=== PATIENT | female | born 1995 | race Caucasian/White ===

== ENCOUNTER 2017-03-02 12:29 | Emergency (ER) | payer OTHER ==
[2017-03-02 12:55] VITALS: BP 121/78
--- NOTE | 2017-03-02 13:04 | UC ---
Complaint Female HPI - HPI Summary HPI Summary: 21 female presents with complaints of sharp pain when urinating and after urinating for the past 3-4 days and has been worsening. Denies frequency and urgency. Patient delivered a baby 10 days ago. Denies fever/ however admits to chills. Denies PMHx. States she has had suprapubic tenderness. States she had stitches during and she had a difficult labor as she was having trouble dilating. Admits to an odor and discharge however she relates this to the delivery. States there was a yellow colored discharge at first that has since resolved and is now blood and brown in color. Denies history and worry for STD or PID as she has had same sexual partner for the past 6 years. Has not taken any medication for the pain. - History Of Current Complaint Chief Complaint: UCGU Stated Complaint: URINARY COMPLAINT Time Seen by Provider: 03/02/17 12:32 Hx Last Menstrual Period: just delivered baby on 02/20/17 ?: No Onset/Duration: Sudden Onset, Lasting Days - 2-3 Timing: Intermittent, Lasting Minutes Severity Initially: Moderate Severity Currently: Moderate Pain Intensity: 7 Pain Scale Used: 0-10 Numeric Radiates to: back Character: Sharp, Cramping Aggravating Factor(s): Urination Alleviating Factor(s): Nothing Associated Signs And Symptoms: Positive: Back Pain, Vaginal Bleeding/Discharge Related Hx: - 2, Para - 2 - Allergies/Home Medications Allergies/Adverse Reactions: Allergies Allergy/AdvReac Type Severity Reaction Status Date / Time Chlorine Allergy Rash Verified 03/02/17 12:55 Latex Allergy Rash And Verified 03/02/17 12:55 Itching nickel Allergy Severe Rash Uncoded 04/06/15 13:17 Home Medications: Home Medications Vit W/ Docusate-Fe Fu [ 19] 1 tab PO DAILY 03/02/17 [History Confirmed 03/02/17] Ursodiol CAP* [Actigall CAP 300 MG*] 300 mg PO TID 03/02/17 [History Confirmed 03/02/17] PMH/Surg Hx/FS Hx/Imm Hx - Additional Past Medical History Additional PMH: Denies DM, HTN and asthma. NO PMHx. - Surgical History Surgical History: None - Family History Known Family History: Positive: None - Social History Alcohol Use: None Substance Use Type: None Smoking Status (MU): Never Smoked Tobacco - Immunization History Most Recent Influenza Vaccination: 06/2015 Most Recent Tetanus Shot: unknown Vaccination Up to Date: Yes Review of Systems Constitutional: Negative Respiratory: Negative Cardiovascular: Negative Gastrointestinal: Abdominal Pain - suprapubic Genitourinary: Dysuria, Hematuria All Other Systems Reviewed And Are Negative: Yes Physical Exam Triage Information Reviewed: Yes Appearance: Well-Appearing, No Pain Distress, Well-Nourished Vital Signs: Initial Vital Signs Temp 98.5 F 03/02/17 12:39 Pulse 80 03/02/17 12:39 Resp 16 03/02/17 12:39 BP 121/78 03/02/17 12:39 Pulse Ox 97 03/02/17 12:39 afebrile, not tachycardic Vital Signs Reviewed: Yes Eyes: Positive: Conjunctiva Clear ENT: Positive: Normal ENT inspection, Hearing grossly normal Neck: Positive: Supple, Nontender Respiratory: Positive: Chest non-tender, Lungs clear, Normal breath sounds, No respiratory distress, No accessory muscle use. Negative: Crackles, Rhonchi, Wheezing Cardiovascular: Positive: RRR, No Murmur, Pulses Normal Abdomen Description: Positive: No Organomegaly, Soft, CVA Tenderness (R), Guarding, Other: - tender on palpation of suprapubic area and uterus on bimanual exam.. Negative: CVA Tenderness (L), Distended, McBurney's Point Tenderness, Peritoneal Signs, Pulsatile Mass Bowel Sounds: Positive: Present Musculoskeletal: Positive: Strength Intact, ROM Intact Neurological: Positive: Alert Psychological Exam: Normal Skin Exam: Normal UC Physical Exam Vital Signs On Initial Exam: Initial Vitals Temp Pulse Resp BP Pulse Ox 98.5 F 80 16 121/78 97 03/02/17 12:39 03/02/17 12:39 03/02/17 12:39 03/02/17 12:39 03/02/17 12:39 - Genitalia Exam Female Genitourinary: Normal External Exam, Genitalia without Lesions/Masses, Cervix Bleeding, Cervix Swelling, Cervix Tender, Cervix Closed - with sutures in place from recent delivery 02/20/17, Uterus Tenderness, Other - vaginal canal had malodorus discharge, thick brown/red in color, no pus-like, purulent, white colored discharge noted at cervical os. cervix and uterus exquisetly tender on bimanual, however firm on palpation. did not feel boggy. sutures in place at cerivical os. Complaint Female Dx - Course Course Of Treatment: Discussed case with Dr Medina. urinalysis was obtained and only showed leuk esterase with some blood, however patient is having bloody discharge from recent delivery. symptoms also are not completely consistent with UTI. Pelvic exam preformed and cultures obtained. due to PE findings and unremarkable urine patient will be treated for BV and UTI at this time while awaiting culture results. No concern of STD's per patient sexual history. Uterus not boggy and no purulent discharge from cervical os. Unlikely to be retained uterine parts from however could not be completely ruled out at this time. Treated with rocephin while in office, sent home on flagyl and keflex as medications are safe in . Told to take ibuprofen for pain and discomfort. Aware of worsening signs and symptoms to watch out for. Close follow up with OBGYN/PCP. Symptoms should improve within the next 3 days. Will await culture results. Difficult to differentiate between acute condition versus typical symptoms experienced post-. - Differential Dx/Diagnosis Differential Diagnosis/HQI/PQRI: Pelvic Inflammatory Disease, , Renal Colic, Sexually Transmitted Disease, Ureteral Stone, Urinary Tract Infection, Other - bacterial vaginosis, pyelonephritis, retained parts post Provider Diagnoses: pelvic pain post , vaginal discharge, pain with urination Discharge - Discharge Plan Condition: Stable Disposition: HOME Prescriptions: Cephalexin CAP* [Keflex CAP*] 500 mg PO BID #14 cap Ibuprofen TAB* [Motrin TAB* 600 MG] 600 mg PO Q6H PRN #30 tab PRN Reason: Pain Metronidazole [Flagyl 500 MG TAB] 500 mg PO BID #14 tab Patient Education Materials: Bacterial Vaginosis (ED), Urinary Tract Infection in Women (ED), Metronidazole (By mouth) Referrals: Eileen Teixeira MD [Primary Care Provider] - Additional Instructions: Take prescribed oral antibiotics as directed for the next 7 days. Be sure to take them with meals. Both are safe with . Warm compresses to lower abdomen may help soothe discomfort. OTC pain relievers to help with pain and discomfort. You will be called once culture results are received and if any changes needed to be made you will be notified. If symptoms worsen, new symptoms develop, or they do not improve please seek medical attention promptly. Follow up with PCP and OBGYN.
[2017-03-02] MEDS ORDERED: cefTRIAXone VIAL(*) 1,000 MG VIAL IM ONE (13:53)
[2017-03-02] MEDS ORDERED: Lidocaine 1% MPF* 2 ML VIAL INJ ONE (13:57)
--- NOTE | 2017-03-04 14:30 | UC ---
Progress - Progress Note Progress Note: 21 yo F is 10 d post had bloody vag discharge with an odor. Labs show Pos Gardnerella, other pelvic labs neg. Chart reviewed. Had pelvic exam and cultures, no concern for retained products or endometritis on exam. Pt treated empirically for BV adn UTI with metronidazole and flagyl, both safe for . Courtesy call back yest, unable to leave message. No change in therapy. Pt was advised to seek med attention if worse, and to have close follow up with OB.
== END 2017-03-02 14:39 | disposition home or self-care (01) ==
LOC: UCCORT 12:29
DX: R10.2 Pelvic and perineal pain (principal); N89.8 Other specified noninflammatory disorders of vagina; R30.0 Dysuria; R31.9 Hematuria, unspecified
CPT/HCPCS: 81003; 87086; 87480; 87491; 87510; 87591; 87661; 96372; 99212; G0463; J0696

== ENCOUNTER 2017-06-04 19:17 | Emergency (ER) | payer OTHER ==
[2017-06-04 20:08] LABS: Hematocrit 38 % (35-47); Hemoglobin 12.8 g/dl (12.0-16.0); Mean Corpuscular HGB Conc 34 g/dl (31-36); Mean Corpuscular Hemoglobin 27 pg (27-31); Mean Corpuscular Volume 78 fL (80-97); Mean Platelet Volume 9 um3 (7.4-10.4); Red Blood Count 4.83 10^6/ul (4.0-5.4); Red Cell Distribution Width 14 % (10.5-15); White Blood Count 6.8 10^3/ul (3.5-10.8)
[2017-06-04 20:15] LABS: Urine Bacteria Absent (Absent); Urine Bilirubin Negative (Negative); Urine Glucose Negative (Negative); Urine Nitrite Negative (Negative)
[2017-06-04 20:22] LABS: ALT 25 U/L (7-52); AST 20 U/L (13-39); Albumin 4.7 g/dL (3.2-5.2); Alkaline Phosphatase 67 U/L (34-104); Anion Gap 8 mmol/L (2-11); BUN/Creatinine Ratio 28.2 (8-20); Blood Urea Nitrogen 20 mg/dL (6-24); C Reactive Protein 9.45 mg/L (< 5.00); CO2 Carbon Dioxide 23 mmol/L (22-32); Calcium 9.7 mg/dL (8.6-10.3); Chloride 105 mmol/L (101-111); EGFR African American 133.6 (>60); EGFR Non-African American 103.9 (>60); Globulin 3.1 g/dL (2-4); Glucose 102 mg/dL (70-100); Lipase 47 U/L (11.0-82.0); Potassium 3.5 mmol/L (3.5-5.0); Sodium 136 mmol/L (133-145); Total Protein 7.8 g/dL (6.4-8.9)
[2017-06-04 21:01] VITALS: BP 115/73
--- NOTE | 2017-06-04 21:37 | RAD ---
Indication: Right upper quadrant pain. Real-time sonography of the right upper quadrant was performed. The liver measures 17 cm in length. No focal lesions or intrahepatic ductal dilatation is noted. The gallbladder is partially contracted. Common duct measures up to 4 mm. Right kidney measures 10.9 x 5.0 x 5.1 cm. No hydronephrosis is noted. The pancreas head, neck and proximal body demonstrates no mass or pancreatic ductal dilatation. IMPRESSION: Contracted gallbladder. No biliary duct dilatation is noted.
--- NOTE | 2017-06-05 04:26 | ED ---
Goran Schneider Thomas, scribed for Eamon Cabezas MD on 06/04/17 at 2044 . Abdominal Pain/Female - HPI Summary HPI Summary: The pt is a 21 y/o F presenting to the ED c/o RUQ abd pain that began three months ago after the of her child 3 months ago but has worsened in the last two weeks. She describes this pain as constant. The pain radiates to her back and her L flank. The pt rates the pain 6/10. The pain is aggravated by eating food and is alleviated by nothing. 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 She has a Hx of ICP during her most recent . She presents to the ED for a second opinion after her PCPs workup with labs and an ultrasound were negative. As of last week, her bilirubin was still elevated. Pt additionally c/o fatigue, random bruises, nausea, and chills. Pt denies bloody stool, mucus in stool, fevers, sweats, diarrhea, and constipation. PMHx: factor 5 clotting disorder (unclear whether confirmed), ICP. PSHx: none. SHx: no smoking, no alcohol use. FHx: negative for gallbladder disease. Previously, she had an US Gallbladder but she has never had a HIDA scan. She has never seen a GI specialist. She uses condoms and control. She had the Depo shot 3 months ago. She has two young boys. Her and mother and in the room. - History of Current Complaint Chief Complaint: EDAbdPain Stated Complaint: RT SIDE PAIN Time Seen by Provider: 06/04/17 19:43 Hx Obtained From: Patient, Family/Technical Support Associate - and mother and in the room Hx Last Menstrual Period: just delivered baby on 02/20/17 Onset/Duration: Lasting Weeks - long-standing complaint, onset at least three months ago, Still Present, Worse Since - the last two weeks Timing: Constant Severity Currently: Severe Pain Intensity: 6 Pain Scale Used: 0-10 Numeric Location: Discrete At: RUQ Radiates: No Aggravating Factor(s): Food Alleviating Factor(s): Nothing Associated Signs and Symptoms: Positive: Nausea, Diarrhea, Other: - POS: RUQ abd pain, fatigue, "random bruises", chills; NEG: mucus in stool, sweats. Negative: Fever, Constipation, Blood in Stool Allergies/Adverse Reactions: Allergies Allergy/AdvReac Type Severity Reaction Status Date / Time Chlorine Allergy Rash Verified 06/04/17 19:24 Latex Allergy Rash And Verified 06/04/17 19:24 Itching nickel Allergy Severe Rash Uncoded 06/04/17 19:24 PMH/Surg Hx/FS Hx/Imm Hx Previously Healthy: No Endocrine/Hematology History: Denies: Hx Diabetes Cardiovascular History: Denies: Hx Hypertension, Hx Pacemaker/ICD Respiratory History: Denies: Hx Asthma GI History: Reports: Other GI Disorders - Hx ICP Sensory History: Denies: Hx Hearing Aid Psychiatric History: Denies: Hx Panic Disorder - Surgical History Surgery Procedure, Year, and Place: None Infectious Disease History: No Infectious Disease History: Denies: Traveled Outside the [place] in Last 30 Days - Family History Known Family History: Negative: Other - NEG: gallbladder disease - Social History Alcohol Use: None Substance Use Type: Reports: None Smoking Status (MU): Never Smoked Tobacco Review of Systems Positive: Chills, Other - POS: fatigue; NEG: sweats. Negative: Fever Negative: Erythema - eyes Negative: Sore Throat Negative: Chest Pain Negative: Shortness Of Breath, Cough Positive: Abdominal Pain - RUQ abd pain that began three months ago but worsened in last two weeks, aggravated by food, Nausea. Negative: Vomiting, Diarrhea, Other - NEG: blood in stool, mucus in stool, constipation Negative: hematuria, incontinence Negative: Myalgia, Edema - legs Positive: Other - POS: "random bruises" Neurological: Other - NEG: dizziness All Other Systems Reviewed And Are Negative: Yes Physical Exam - Summary Physical Exam Summary: Constitutional: Well-developed, Well-nourished, Alert. (-) Distressed Skin: Warm, Dry HENT: Normocephalic; Atraumatic Eyes: Conjunctiva normal Neck: Musculoskeletal ROM normal neck. (-) JVD, (-) Stridor, (-) Tracheal deviation Cardio: Rhythm regular, rate normal, Heart sounds normal; Intact distal pulses; The pedal pulses are 2+ and symmetric. Radial pulses are 2+ and symmetric. (-) Murmur Pulmonary/Chest wall: Effort normal. (-) Respiratory distress, (-) Wheezes, (-) Rales Abd: Soft, (-) Tenderness, (-) Distension, (-) Guarding, (-) Rebound Musculoskeletal: (-) Edema Lymph: (-) Cervical adenopathy Neuro: Alert, Oriented x3 Psych: Mood and affect Normal Triage Information Reviewed: Yes Vital Signs On Initial Exam: Initial Vitals Temp Pulse Resp BP Pulse Ox 98.8 F 76 16 135/78 99 06/04/17 19:20 06/04/17 19:20 06/04/17 19:20 06/04/17 19:20 06/04/17 19:20 Vital Signs Reviewed: Yes - Jacquelin Coma Scale Coma Scale Total: 15 Diagnostics - Vital Signs Vital Signs Temp Pulse Resp BP Pulse Ox 06/04/17 20:00 79 121/89 99 06/04/17 19:43 82 98 06/04/17 19:34 99.0 F 79 19 121/106 99 06/04/17 19:20 98.8 F 76 16 135/78 99 - Laboratory Lab Results: Lab Results 06/04/17 06/04/17 06/04/17 Range/Units 19:30 19:30 19:30 WBC 6.8 (3.5-10.8) 10^3/ul RBC 4.83 (4.0-5.4) 10^6/ul Hgb 12.8 (12.0-16.0) g/dl Hct 38 (35-47) % MCV 78 L (80-97) fL MCH 27 (27-31) pg MCHC 34 (31-36) g/dl RDW 14 (10.5-15) % Plt Count 257 (150-450) 10^3/ul MPV 9 (7.4-10.4) um3 Neut % (Auto) 46.3 (38-83) % Lymph % (Auto) 40.9 (25-47) % [place] % (Auto) 8.3 (1-9) % Eos % (Auto) 3.2 (0-6) % Baso % (Auto) 1.3 (0-2) % Absolute Neuts (auto) 3.2 (1.5-7.7) 10^3/ul Absolute Lymphs (auto) 2.8 (1.0-4.8) 10^3/ul Absolute Monos (auto) 0.6 (0-0.8) 10^3/ul Absolute Eos (auto) 0.2 (0-0.6) 10^3/ul Absolute Basos (auto) 0.1 (0-0.2) 10^3/ul Absolute Nucleated RBC 0.01 10^3/ul Nucleated RBC % 0.1 Sodium 136 (133-145) mmol/L Potassium 3.5 (3.5-5.0) mmol/L Chloride 105 (101-111) mmol/L Carbon Dioxide 23 (22-32) mmol/L Anion Gap 8 (2-11) mmol/L BUN 20 (6-24) mg/dL Creatinine 0.71 (0.51-0.95) mg/dL Est GFR ( Amer) 133.6 (>60) Est GFR (Non-Af Amer) 103.9 (>60) BUN/Creatinine Ratio 28.2 H (8-20) Glucose 102 H (70-100) mg/dL Lactic Acid 1.2 (0.5-2.0) mmol/L Calcium 9.7 (8.6-10.3) mg/dL Total Bilirubin 2.00 H (0.2-1.0) mg/dL AST 20 (13-39) U/L ALT 25 (7-52) U/L Alkaline Phosphatase 67 (34-104) U/L C-Reactive Protein 9.45 H (< 5.00) mg/L Total Protein 7.8 (6.4-8.9) g/dL Albumin 4.7 (3.2-5.2) g/dL Globulin 3.1 (2-4) g/dL Albumin/Globulin Ratio 1.5 (1-3) Lipase 47 (11.0-82.0) U/L Beta HCG, Quant < 0.60 mIU/mL Urine Color Urine Appearance Urine pH (5-9) Ur Specific [place] (1.010-1.030) Urine Protein (Negative) Urine Ketones (Negative) Urine Blood (Negative) Urine Nitrate (Negative) Urine Bilirubin (Negative) Urine Urobilinogen (Negative) Ur Leukocyte Esterase (Negative) Urine WBC (Auto) (Absent) Urine RBC (Auto) (Absent) Ur Squamous Epith Cells (Absent) Urine Bacteria (Absent) Urine Glucose (Negative) 06/04/17 Range/Units 19:30 WBC (3.5-10.8) 10^3/ul RBC (4.0-5.4) 10^6/ul Hgb (12.0-16.0) g/dl Hct (35-47) % MCV (80-97) fL MCH (27-31) pg MCHC (31-36) g/dl RDW (10.5-15) % Plt Count (150-450) 10^3/ul MPV (7.4-10.4) um3 Neut % (Auto) (38-83) % Lymph % (Auto) (25-47) % [place] % (Auto) (1-9) % Eos % (Auto) (0-6) % Baso % (Auto) (0-2) % Absolute Neuts (auto) (1.5-7.7) 10^3/ul Absolute Lymphs (auto) (1.0-4.8) 10^3/ul Absolute Monos (auto) (0-0.8) 10^3/ul Absolute Eos (auto) (0-0.6) 10^3/ul Absolute Basos (auto) (0-0.2) 10^3/ul Absolute Nucleated RBC 10^3/ul Nucleated RBC % Sodium (133-145) mmol/L Potassium (3.5-5.0) mmol/L Chloride (101-111) mmol/L Carbon Dioxide (22-32) mmol/L Anion Gap (2-11) mmol/L BUN (6-24) mg/dL Creatinine (0.51-0.95) mg/dL Est GFR ( Amer) (>60) Est GFR (Non-Af Amer) (>60) BUN/Creatinine Ratio (8-20) Glucose (70-100) mg/dL Lactic Acid (0.5-2.0) mmol/L Calcium (8.6-10.3) mg/dL Total Bilirubin (0.2-1.0) mg/dL AST (13-39) U/L ALT (7-52) U/L Alkaline Phosphatase (34-104) U/L C-Reactive Protein (< 5.00) mg/L Total Protein (6.4-8.9) g/dL Albumin (3.2-5.2) g/dL Globulin (2-4) g/dL Albumin/Globulin Ratio (1-3) Lipase (11.0-82.0) U/L Beta HCG, Quant mIU/mL Urine Color Yellow Urine Appearance Clear Urine pH 6.0 (5-9) Ur Specific [place] 1.025 (1.010-1.030) Urine Protein Negative (Negative) Urine Ketones Negative (Negative) Urine Blood 2+ H (Negative) Urine Nitrate Negative (Negative) Urine Bilirubin Negative (Negative) Urine Urobilinogen Negative (Negative) Ur Leukocyte Esterase 2+ H (Negative) Urine WBC (Auto) 1+(6-10/hpf) H (Absent) Urine RBC (Auto) 3+(>10/hpf) H (Absent) Ur Squamous Epith Cells Present H (Absent) Urine Bacteria Absent (Absent) Urine Glucose Negative (Negative) Result Diagrams: 06/04/17 19:30 06/04/17 19:30 Lab Statement: Any lab studies that have been ordered have been reviewed, and results considered in the medical decision making process. - Additional Comments Diagnostic Additional Comments: US Gallbladder. Interpreted by radiologist. Impression: Contracted gallbladder. No biliary duct dilatation is noted. ED physician has reviewed this report and agrees. Re-Evaluation - Re-Evaluation First Eval Re-Evaluation Time: 22:00 Change: Improved Comment: She is nontender Abdominal Pain Fem Course/Dx - Course Course Of Treatment: The pt is a 21 y/o F presenting to the ED c/o RUQ abd pain that began three months ago after the of her child 3 months ago but has worsened in the last two weeks. She describes this pain as constant. The pain radiates to her back and her L flank. The pt rates the pain 6/10. The pain is aggravated by eating food and is alleviated by nothing. 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 She has a Hx of ICP during her most recent . She presents to the ED for a second opinion after her PCPs workup with labs and an ultrasound were negative. As of last week, her bilirubin was still elevated. Pt additionally c/o fatigue, random bruises, nausea, and chills. Pt denies bloody stool, mucus in stool, fevers, sweats, diarrhea, and constipation. PMHx: factor 5 clotting disorder (unclear whether confirmed), ICP. PSHx: none. SHx: no smoking, no alcohol use. FHx: negative for gallbladder disease. Previously, she had an US Gallbladder but she has never had a HIDA scan. She has never seen a GI specialist. She uses condoms and control. She had the Depo shot 3 months ago. She has two young boys. Her and mother and in the room. She had a normal exam. On re-examination, she is non- tender. US Gallbladder reveals Contracted gallbladder. No biliary duct dilatation is noted. ED physician has reviewed this report and agrees. She is diagnosed with RUQ and elevated bilirubin. She is discharged with a referral to a GI specialist in 2-3 days. - Diagnoses Provider Diagnoses: Elevated bilirubin, RUQ pain Discharge - Discharge Plan Condition: Stable Disposition: HOME Patient Education Materials: Abdominal Pain (ED) Referrals: Eileen Teixeira MD [Primary Care Provider] - 2 Days Jalil Kat MD [Medical Doctor] - 2 Days Additional Instructions: Follow up with your primary care provider in 2-3 days. Follow up with Dr. Kat, a automotive airconditioning mechanic, in 2-3 days. Return to the emergency department for any new or worsening symptoms. The documentation as recorded by the Goran dias Thomas accurately reflects the service I personally performed and the decisions made by , Eamon Cabezas MD.
== END 2017-06-04 22:14 | disposition home or self-care (01) ==
LOC: ED 19:17
DX: R10.11 Right upper quadrant pain (principal); E80.7 Disorder of bilirubin metabolism, unspecified
CPT/HCPCS: 36415; 76705; 80053; 80074; 81003; 81015; 83605; 83690; 84702; 85025; 86140; 87086; 99282

== ENCOUNTER 2018-04-04 07:19 | Emergency (ER) | payer OTHER ==
--- OUTSIDE RECORDS SUMMARY | 2018-04-04 07:32 | XMS REPORT ---
:1995 External Reference #:[id number] Author Organization [facility] Address [address], [address] [place] [address] Phone [phone] Care Team Providers Name Role Phone Marino Avila MD Primary Care Physician Unavailable Payers Type Date Identification Numbers Payment Provider Subscriber Commercial Policy Number: [id number] Obdulio Lowery PayID: [id number] [address] [address] [place] [address] Problems Date Description Provider Status Onset: 09/10/2003 Closed fracture of shaft of clavicle Active Onset: 04/10/2015 Blood coagulation disorder, categorized Lita Fowler DO Active by value of screening test Onset: 04/10/2015 Neck pain Lita Fowler DO Active Onset: 04/10/2015 Irregular periods Lita Fowler DO Active Onset: 03/24/2018 Kidney stone Aditya Shields M.D. 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 Onset: 06/24/2017 Hypercoagulability state Lita Fowler DO Active Onset: 06/22/2017 Gilbert's syndrome Harman Govea MD Active Onset: 06/22/2017 Chronic nonalcoholic liver disease Harman Govea MD Active Onset: 06/22/2017 Right upper quadrant pain Harman Govea MD Active Onset: 06/22/2017 Disorder of cardiovascular system Harman Govea MD Active Onset: 02/11/2017 Electrocardiogram abnormal Merrick Low MD Active Onset: 02/11/2017 Syncope and collapse Merrick Low MD Active Family History Date Family Member(s) Problem(s) Comments General Hypertension General Non Contributory Father Kidney Stones Father lung issues Father Hypertension Children 1 living age 9 months Siblings 3 age 24 living, age 23 living, age 15 living Social History Type Date Description Comments Marital Status Single Lives With Significant Other Lives With Son Home Environment Lives Alone Diet Patient follows no dietary restrictions Occupation Unemployed Work Status Currently Working Cigarette Use Never Smoked Cigarettes Smokeless Tobacco Never Used Smokeless Tobacco ETOH Use Denies alcohol use Smoking Patient has never smoked Recreational Drug Use Denies Drug Use Daily Caffeine Patient consumes minimal amounts of caffeine Daily Caffeine Consumes on average 12oz of soda per day Allergies, Adverse Reactions, Alerts Date Description Reaction Status Severity Comments 04/10/2015 Latex active 04/10/2015 Nickel active 04/10/2015 Chlorine active 06/28/2013 Metals inactive Medications Medication Date Status Form Strength Qnty SIG Indications Ordering Provider Nexplanon Active Implant 68mg to be Unknown /0000 removed in 2020 Cephalexin Active Capsules 500mg take 1 Unknown /0000 capsule every 12 hours Ergocalciferol 12/13 Hx Capsules [id number] 6caps 1 cap po Lita /2018 qweek Boufal, DO - 03/24 Ergocalciferol 11/14 Hx Capsules [id number] 6caps 1 cap po Lita /2018 qweek Boufal, DO - 11/30 Bactrim DS 11/14 Hx Tablets 800-160mg 14tab 1 tabl s by mouth Bonancyal, DO - twice a No Active 10/07 Hx Unknown Medications /2017 - 10/07 No Active 09/17 Hx Unknown Medications /2014 - 02/11 No Active 07/11 Hx Unknown Medications /2014 - 07/11 Ortho Evra 07/11 Hx Patches 150-35mcg 3unit apply Z30.018 Maureen /2014 Weekly /24HR s [place] Laurent - patch to 09/17 hairless skin of the upper arms, abdomen or lower back x 3 weeks leave off 1 week - repeat Levonorgestrel 07/11 Hx Tablets 1.5mg 1tabs take on Z30.018 in event [place] Chou - of 09/17 breakage Iron 05/06 Hx Tablets 325(65Fe) 30tab 1 tabl Lita /2014 mg s by mouth DO Malcolm - M,W,F 07/11 No Active 04/10 Hx Unknown Medications /2014 - 04/10 Norethindrone 04/10 Hx Tablets 1-20mg-mc 1pack one po 626.4 Acetate/Ethinyl g(24) qd [place] Chou Estradiol/Ferrou - s Fumarate 07/11 Depo-Provera 10/15 Hx Suspension 150mg/ml 1unit every 3 Katy s russ Kerns MD - 04/10 Cyclobenzaprine 07/24 Hx Tablets 5mg 30tab 1 po in [facility] s the Kathi Corral M.D., FACS 04/10 muscle spasms Cyclobenzaprine 07/23 Hx Tablets 7.5mg 20tab 1 po in [facility] s the Kathi Corral M.D., FACS 07/24 prior to bed Naproxen 06/28 Hx Tablets 375mg 60tab 1 po bid [facility] s with Kathi Corral M.D., FACS 04/10 Cryselle-28 Hx Tablets 0.3-30mg- 1pack 1 po qd Unknown /0000 mcg - 04/10 Ursodiol Hx Capsules 300mg 1 po tid Unknown /0000 [address] 81mg 1 by Unknown /0000 mouth every day One 00 Hx Tablets 1 by Unknown Daily /0000 mouth every day Ondansetron Hx Tablets 4mg 1 tabs Unknown /0000 Dispers prn - 10/[address] 20mg 1 tab by Unknown /0000 mouth - every every morning Tylenol Extra Hx Tablets 500mg 1-2 tabs Unknown Strength /0000 by mouth - every 4 / hours needed Vitamin D Hx Capsules [id number] take 1 Unknown (Ergocalciferol) /0000 capsule - by mouth 12/16 week Vitamin B Hx Injection 100 one shot Unknown Complex 100 /0000 once a - month 03/24 Hydrocodone-Acet Hx Tablets 5-325mg prn Unknown aminophen /0000 given in - ER 03/31 Medications Administered in Office Medication Date Status Form Strength Qnty SIG Indications Ordering Provider Vitamin B12 Administered Injection Oncology Injection 1000 018 Nurse mcg/Ml Theraputic Or Administered Injection Oncology Diagnostic 018 Nurse Injection Vitamin B12 Administered Injection Lita Injection 1000 018 Boufal, DO mcg/Ml Theraputic Or Administered Injection Lita Diagnostic 018 Boufal, DO Injection Immunizations CPT Code Status Date Vaccine Lot # [id number] Given 07/11/2015 Influenza Vaccine (Fluzone) Age 3 And Older [id number] Given 06/10/2014 Tdap injection [id number] Given 06/10/2014 flu vaccination Vital Signs Date Vital Result Comment 03/31/2018 BP Systolic Sitting Right Arm 110 mmHg BP Diastolic Sitting Right Arm 77 mmHg Heart Rate 90 /min Respiratory Rate 16 /min Height 63 inches 5'3" Weight 171.00 lb BMI (Body Mass Index) 30.3 kg/m2 BSA (Body Surface Area) 1.81 m2 [place] body weight in kilograms 52 03/24/2018 BP Systolic 111 mmHg BP Diastolic 73 mmHg Body Temperature 99.0 F Heart Rate 77 /min Respiratory Rate 16 /min Weight 170.25 lb O2 % BldC Oximetry 96 % Pain Level 5 RIght sided back pain 12/13/2017 BP Systolic 138 mmHg BP Diastolic 73 mmHg Body Temperature 98.5 F Heart Rate 71 /min Weight 167.00 lb O2 % BldC Oximetry 98 % 11/30/2017 BP Systolic 123 mmHg BP Diastolic 78 mmHg Body Temperature 98.8 F Respiratory Rate 16 /min Weight 165.00 lb O2 % BldC Oximetry 98 % Pain Level 0 10/07/2017 BP Systolic 118 mmHg BP Diastolic 73 mmHg Body Temperature 97.1 F Heart Rate 81 /min Weight 160.38 lb O2 % BldC Oximetry 98 % 06/24/2017 BP Systolic 130 mmHg BP Diastolic 79 mmHg Body Temperature 98.2 F Heart Rate 88 /min Weight 153.00 lb O2 % BldC Oximetry 98 % 06/22/2017 BP Systolic Sitting Left Arm 118 mmHg BP Diastolic Sitting Left Arm 74 mmHg Heart Rate 75 /min Respiratory Rate 16 /min Height 63 inches 5'3" Weight 151.00 lb BMI (Body Mass Index) 26.7 kg/m2 BSA (Body Surface Area) 1.72 m2 [place] body weight in kilograms 52 02/11/2017 BP Systolic Sitting Right Arm 123 mmHg BP Diastolic Sitting Right Arm 73 mmHg Heart Rate 63 /min Respiratory Rate 18 /min Height 63 inches 5'3" Weight 177.00 lb BMI (Body Mass Index) 31.4 kg/m2 BSA (Body Surface Area) 1.84 m2 [place] body weight in kilograms 52 09/17/2015 BP Systolic Sitting Left Arm 128 mmHg BP Diastolic Sitting Left Arm 74 mmHg Heart Rate 78 /min Respiratory Rate 19 /min Height 63 inches 5'3" Weight 178.00 lb BMI (Body Mass Index) 31.5 kg/m2 BSA (Body Surface Area) 1.84 m2 Last Menstrual Period [id number] 07/11/2015 BP Systolic 118 mmHg BP Diastolic 72 mmHg Height 64 inches 5'4" Weight 175.00 lb BMI (Body Mass Index) 30.0 kg/m2 BSA (Body Surface Area) 1.85 m2 Last Menstrual Period [id number] 05/06/2015 BP Systolic Sitting Left Arm 127 mmHg BP Diastolic Sitting Left Arm 77 mmHg Body Temperature 98.2 F Heart Rate 80 /min Respiratory Rate 18 /min Weight 178.00 lb O2 % BldC Oximetry 97 % 04/23/2015 BP Systolic Sitting Left Arm 128 mmHg BP Diastolic Sitting Left Arm 72 mmHg Body Temperature 98.2 F Heart Rate 84 /min Respiratory Rate 18 /min Weight 181.00 lb O2 % BldC Oximetry 96 % 04/10/2015 BP Systolic Sitting Left Arm 126 mmHg BP Diastolic Sitting Left Arm 57 mmHg Body Temperature 98.0 F Heart Rate 102 /min Respiratory Rate 18 /min Weight 180.00 lb O2 % BldC Oximetry 96 % 04/10/2015 BP Systolic 114 mmHg BP Diastolic 74 mmHg Heart Rate 88 /min Respiratory Rate 18 /min Height 65 inches 5'5" Weight 179.00 lb BMI (Body Mass Index) 29.8 kg/m2 BSA (Body Surface Area) 1.89 m2 10/24/2014 BP Systolic 122 mmHg BP Diastolic 70 mmHg Height 65 inches 5'5" Weight 157.00 lb 08/28/2014 BP Systolic 110 mmHg BP Diastolic 70 mmHg Heart Rate 76 /min Height 65 inches 5'5" Weight 142.00 lb 07/01/2014 BP Systolic 138 mmHg BP Diastolic 84 mmHg Height 65 inches 5'5" Weight 161.00 lb 06/25/2014 BP Systolic 132 mmHg BP Diastolic 70 mmHg Height 65 inches 5'5" Weight 157.00 lb 06/10/2014 BP Systolic 124 mmHg BP Diastolic 74 mmHg Height 65 inches 5'5" Weight 156.00 lb 05/02/2014 BP Systolic 108 mmHg BP Diastolic 60 mmHg Height 65 inches 5'5" Weight 149.00 lb 04/01/2014 BP Systolic 112 mmHg BP Diastolic 64 mmHg Height 65 inches 5'5" Weight 144.00 lb 02/26/2014 BP Systolic 118 mmHg BP Diastolic 68 mmHg Height 65 inches 5'5" Weight 124.00 lb 12/21/2013 BP Systolic 110 mmHg BP Diastolic 64 mmHg Height 65 inches 5'5" Weight 128.00 lb 11/20/2013 BP Systolic 90 mmHg BP Diastolic 64 mmHg Height 65 inches 5'5" Weight 126.00 lb 07/23/2013 BP Systolic Sitting Left Arm 110 mmHg BP Diastolic Sitting Left Arm 80 mmHg Height 64.5 inches 5'4.50" Weight 135.00 lb BMI (Body Mass Index) 22.8 kg/m2 BSA (Body Surface Area) 1.66 m2 Height Percentile 54 % Weight Percentile 70th Results Test Date Test Result H/L Range Note Iron-Tibc-%Sat 12/27/2017 Serum Iron 79 g/dL 50-170 1 Total Iron Binding Capacity 347 g/dL 250-450 1 Transferrin %Saturation 23 % 12-57 1 Laboratory test finding 12/27/2017 Ferritin 216 ng/mL 8-252 1 Vitamin B12 And Folate 12/27/2017 Vitamin B12 505 pg/mL 193-986 1 Folic Acid 18.8 ng/mL High 3.1-17.5 1 Laboratory test 12/27/2017 Vitamin D,25-Hydroxy 21.9 ng/mL Low 30.0-100.0 1, 2 finding CBS W/Automated Diff 12/27/2017 White Blood Count 5.6 K/uL 3.1-10.7 1 Red Blood Count 5.08 M/uL 3.90-5.40 1 Hemoglobin 13.6 gm/dL 11.6-15.8 1 Hematocrit 39.8 % 36.0-46.1 1 Mean Cell Volume 78.3 fl Low 80.9-99.0 1 Mean Corpuscular HGB 26.8 pg 25.9-32.7 1 Mean Corpuscular HGB Conc 34.2 g/dL 30.8-34.3 1 Platelet Count 249 K/uL 155-360 1 Red Cell Distri Width SD 37.2 fl 3-47 1 Red Cell Distri Width %CV 13.3 % 11.7-14.4 1 Mean Platelet Volume 11.1 fL 8.9-12.4 1 Neut% 59.1 % 40.4-72.8 1 Lymph % 32.2 % 20.0-42.0 1 F[place]ardo % 6.4 % 4.3-13.2 1 Eo% 1.2 % 0.0-6.6 1 Bas% 1.1 % 0.0-1.1 1 Neut# 3.32 K/uL 1.8-7.0 1 Lymph # 1.81 K/uL 1.0-4.0 1 F[place]ardo # 0.36 K/uL 0.3-0.9 1 Eos # 0.07 K/uL 0.0-0.5 1 Baso # 0.06 K/uL 0.0-0.1 1 Comprehensive Metabolic Panel 12/27/2017 Glucose 102 mg/dL 74-106 1 BUN 17 mg/dL 7-18 1 Creatinine 0.6 mg/dL 0.6-1.3 1 Glom Filtration Rate, Estimate >60 mL/min >60 1 If >60 mL/min >60 1, 3 BUN/Creat 28.3 ratio 1 Sodium 140 mmol/L 136-145 1 Potassium 4.0 mmol/L 3.5-5.1 1 Chloride 107 mmol/L 98-107 1 Carbon Dioxide 25 mmol/L 21-32 1 Anion Gap 8 mEq/L 8-16 1 Calcium 8.9 mg/dL 8.5-10.1 1 Total Protein 7.9 g/dL 6.4-8.2 1 Albumin 4.1 g/dL 3.4-5.0 1 Globulin 3.8 g/dL 1.9-4.3 1 Alb/Glob 1.1 ratio 1 Bilirubin,Total 1.5 mg/dL High 0.2-1.0 1 Sgot/Ast 14 U/L Low 15-37 1, 4 SGPT/Alt 20 U/L 12-78 1 Alkaline Phosphatase 82 U/L 45-117 1 Xray 12/12/2017 Gallbladder (Disida) W/Ef still wnl Iron-Tibc-%Sat 12/01/2017 Serum Iron 72 g/dL 50-170 1 Total Iron Binding Capacity 403 g/dL 250-450 1 Transferrin %Saturation 18 % 12-57 1 Comprehensive Metabolic Panel 12/01/2017 Glucose 96 mg/dL 74-106 1 BUN 16 mg/dL 7-18 1 Creatinine 0.7 mg/dL 0.6-1.3 1 Glom Filtration Rate, Estimate >60 mL/min >60 1 If >60 mL/min >60 1, 5 BUN/Creat 22.8 ratio 1 Sodium 138 mmol/L 136-145 1 Potassium 3.9 mmol/L 3.5-5.1 1 Chloride 108 mmol/L High 98-107 1 Carbon Dioxide 22 mmol/L 21-32 1 Anion Gap 8 mEq/L 8-16 1 Calcium 8.9 mg/dL 8.5-10.1 1 Total Protein 8.2 g/dL 6.4-8.2 1 Albumin 4.3 g/dL 3.4-5.0 1 Globulin 3.9 g/dL 1.9-4.3 1 Alb/Glob 1.1 ratio 1 Bilirubin,Total 2.1 mg/dL High 0.2-1.0 1 Sgot/Ast 16 U/L 15-37 1 SGPT/Alt 27 U/L 12-78 1 Alkaline Phosphatase 78 U/L 45-117 1 CBS W/Automated Diff 12/01/2017 White Blood Count 5.3 K/uL 3.1-10.7 1 Red Blood Count 5.24 M/uL 3.90-5.40 1 Hemoglobin 14.0 gm/dL 11.6-15.8 1 Hematocrit 40.8 % 36.0-46.1 1 Mean Cell Volume 77.9 fl Low 80.9-99.0 1 Mean Corpuscular HGB 26.7 pg 25.9-32.7 1 Mean Corpuscular HGB Conc 34.3 g/dL 30.8-34.3 1 Platelet Count 264 K/uL 155-360 1 Red Cell Distri Width SD 36.8 fl 3-47 1 Red Cell Distri Width %CV 13.0 % 11.7-14.4 1 Mean Platelet Volume 10.9 fL 8.9-12.4 1 Neut% 54.1 % 40.4-72.8 1 Lymph % 35.7 % 20.0-42.0 1 [place]ardo % 7.2 % 4.3-13.2 1 Eo% 1.9 % 0.0-6.6 1 Bas% 1.1 % 0.0-1.1 1 Neut# 2.84 K/uL 1.8-7.0 1 Lymph # 1.88 K/uL 1.0-4.0 1 [place]ardo # 0.38 K/uL 0.3-0.9 1 Eos # 0.10 K/uL 0.0-0.5 1 Baso # 0.06 K/uL 0.0-0.1 1 Laboratory test 12/01/2017 Vitamin D,25-Hydroxy 19.2 ng/mL Low 30.0-100.0 1, 6 finding Vitamin B12 And Folate 12/01/2017 Vitamin B12 383 pg/mL 193-986 1 Folic Acid 18.2 ng/mL High 3.1-17.5 1 Laboratory test finding 12/01/2017 Ferritin 40 ng/mL 8-252 1 Laboratory test finding 10/07/2017 Abo/RH Type O POS 1 Iron-Tibc-%Sat 10/07/2017 Serum Iron 81 g/dL 50-170 1 Total Iron Binding Capacity 420 g/dL 250-450 1 Transferrin %Saturation 19 % 12-57 1 Laboratory test finding 10/07/2017 Ferritin 42 ng/mL 8-252 1 Vitamin B12 And Folate 10/07/2017 Vitamin B12 424 pg/mL 193-986 1 Folic Acid > 20.0 ng/mL High 3.1-17.5 1 Laboratory test 10/07/2017 Vitamin D,25-Hydroxy 18.2 ng/mL Low 30.0-100.0 1, 7 finding CBS W/Automated Diff 10/07/2017 White Blood Count 5.0 K/uL 3.1-10.7 1 Red Blood Count 5.19 M/uL 3.90-5.40 1 Hemoglobin 13.6 gm/dL 11.6-15.8 1 Hematocrit 40.8 % 36.0-46.1 1 Mean Cell Volume 78.6 fl Low 80.9-99.0 1 Mean Corpuscular HGB 26.2 pg 25.9-32.7 1 Mean Corpuscular HGB Conc 33.3 g/dL 30.8-34.3 1 Platelet Count 324 K/uL 155-360 1 Red Cell Distri Width SD 37.4 fl 3-47 1 Red Cell Distri Width %CV 13.2 % 11.7-14.4 1 Mean Platelet Volume 11.5 fL 8.9-12.4 1 Neut% 49.8 % 40.4-72.8 1 Lymph % 38.3 % 20.0-42.0 1 F[place]ardo % 7.5 % 4.3-13.2 1 Eo% 2.4 % 0.0-6.6 1 Bas% 2.0 % High 0.0-1.1 1 Neut# 2.51 K/uL 1.8-7.0 1 Lymph # 1.93 K/uL 1.0-4.0 1 [place] # 0.38 K/uL 0.3-0.9 1 Eos # 0.12 K/uL 0.0-0.5 1 Baso # 0.10 K/uL 0.0-0.1 1 Comprehensive Metabolic Panel 10/07/2017 Glucose 81 mg/dL 74-106 1 BUN 14 mg/dL 7-18 1 Creatinine 0.6 mg/dL 0.6-1.3 1 Glom Filtration Rate, Estimate >60 mL/min >60 1 If >60 mL/min >60 1, 8 BUN/Creat 23.3 ratio 1 Sodium 139 mmol/L 136-145 1 Potassium 3.9 mmol/L 3.5-5.1 1 Chloride 105 mmol/L 98-107 1 Carbon Dioxide 27 mmol/L 21-32 1 Anion Gap 7 mEq/L Low 8-16 1 Calcium 9.5 mg/dL 8.5-10.1 1 Total Protein 8.5 g/dL High 6.4-8.2 1 Albumin 4.4 g/dL 3.4-5.0 1 Globulin 4.1 g/dL 1.9-4.3 1 Alb/Glob 1.1 ratio 1 Bilirubin,Total 2.5 mg/dL High 0.2-1.0 1 Sgot/Ast 17 U/L 15-37 1 SGPT/Alt 27 U/L 12-78 1 Alkaline Phosphatase 80 U/L 45-117 1 Laboratory test 06/30/2017 Urine HCG (Qualitative) NEGATIVE Negative 9, 10 finding Porphobilinogen,QN,24H 06/30/2017 Porphobilinogen,QN,Urine 0.6 mg/L 0.0- 2.0 11 R Urine Porphobilinogen, 24HR (U) 0.6 mg/24hr 0.0-1.5 11, 12 Porphyrins,QN,24-HR Urine 06/30/2017 Uroporphyrin,Urine 5 ug/L Undefined 11, 13 Uroporphyrin 24 HR Urine 5 ug/24hr 0-24 11 Heptacarboxylporph,Urine 2 ug/L Undefined 11 Heptacarboxylporphyrin 2 ug/24hr 0-4 11 Hexacarboxylporph,Urine <1 ug/L Undefined 11 Hexacarboxylpor,24HR Urine <1 ug/24hr 0-1 11 Pentacarboxylporph,Urine 1 ug/L Undefined 11 Pentacarboxyl,24 HR Urine 1 ug/24hr 0-4 11 Coproporphyrin,Urine 15 ug/L Undefined 11 Coproporphyrin,24 HR Urine 15 ug/24hr 0-24 11 Coproporphyrin III 8 ug/L Undefined 11 Coproporph III, 24 Hour 8 ug/24hr 0-74 11 Ala Delta, 24 Hour Urine 06/30/2017 Delta Ala 2.2 mg/L Undefined 11 Delta Ala 2.2 mg/24hr 0.5-5.1 11, 14 Homocyst(E)Ine, P/S 06/24/2017 Homocyst(e)ine, P/S 8.7 umol/L 0.0-15.0 15, 16 Laboratory test 06/24/2017 PBG Deaminase, 3.25 mU/gHb 2.10-4.30 15, 17 finding Erythrocyte Porphyrins,Serum,Total < 0.1 g/dL 0.0-1.0 15, 18 Thomas Fibrosure 06/24/2017 Thomas Fibrosis Score 0.08 0.00-0.21 19 Thomas Fibrosis Stage (SEE NOTE) 19, 20 Thomas Steatosis Score 0.33 High 0.00-0.30 19 Thomas Steatosis Grade (SEE NOTE) 19, 21 Thomas Score 0.25 0.25 19 Thomas Grade (SEE NOTE) 19, 22 Height 63 Inches . 19 Weight Measured 151 LBS . 19 Ianas-4-Bgoxmbwrmcyrs 137 mg/dL 110-276 19 Haptoglobin 204 mg/dL High 34-200 19 Apolipoprotein A-1 117 mg/dL 116-209 19 Bilirubin,Total 1.5 mg/dL High 0.0-1.2 19 GGT 15 IU/L 0-60 19 Alt (SGPT) 26 IU/L 0-40 19 Alt (Sgot) P5P 21 IU/L 0-40 19 Cholesterol,Total 125 mg/dL 100-199 19 Glucose, Serum 97 mg/dL 65-99 19 Triglycerides 83 mg/dL 0-149 19 Thomas Interpretations: (SEE NOTE) 19, 23 Fibrosis Scoring (SEE NOTE) 19, 24 Steatosis Grading (SEE NOTE) 19, 25 Thomas Scoring (SEE NOTE) 19, 26 Thomas Limitations (SEE NOTE) 19, 27 Thomas Comment . 19, 28 Thomas Comment 2 (SEE NOTE) 19, 29 Height 63 19 Weight 151 19 C1 Esterase Inhibitor 06/24/2017 C1 Esterase Inhibitor 96 %meanno . 19, 30 Function Function Height 63 19 Weight 151 19 C1 Esterase Inhibitor 06/24/2017 C1 Esterase Inhibitor 33 mg/dL 21-39 19 Height 63 19 Weight 151 19 Complement C4, Serum 06/24/2017 Complement C4, Serum 29 mg/dL 14-44 19 Height 63 19 Weight 151 19 CMP Panel (14 Test) 06/24/2017 Glucose 93 mg/dL 74-106 19 BUN 21 mg/dL High 7-18 19 Creatinine 0.7 mg/dL 0.6-1.3 19 Glom Filtration Rate, Estimate >60 mL/min >60 19 If >60 mL/min >60 19, 31 BUN/Creat 30.0 ratio 19 Sodium 141 mmol/L 136-145 19 Potassium 3.8 mmol/L 3.5-5.1 19 Chloride 110 mmol/L High 98-107 19 Carbon Dioxide 20 mmol/L Low 21-32 19 Anion Gap 11 mEq/L 8-16 19 Calcium 9.0 mg/dL 8.5-10.1 19 Total Protein 7.7 g/dL 6.4-8.2 19 Albumin 3.9 g/dL 3.4-5.0 19 Globulin 3.8 g/dL 1.9-4.3 19 Alb/Glob 1.0 ratio 19 Bilirubin,Total 1.8 mg/dL High 0.2-1.0 19 Sgot/Ast 14 U/L Low 15-37 19, 32 SGPT/Alt 26 U/L 12-78 19 Alkaline Phosphatase 71 U/L 45-117 19 Laboratory test finding 06/24/2017 Von Willebrand Factor Activity 51 % 50 -200 33 VWF Antigen 91 % 50-200 33, 34 Factor VIII Activity 80 % 57-163 33, 35 Factor VIII Antigen 124 % . 33, 36 CBS W/Automated Diff 06/24/2017 White Blood Count 5.0 K/uL 3.1-10.7 33 Red Blood Count 4.62 M/uL 3.90-5.40 33 Hemoglobin 12.3 gm/dL 11.6-15.8 33 Hematocrit 36.2 % 36.0-46.1 33 Mean Cell Volume 78.4 fl Low 80.9-99.0 33 Mean Corpuscular HGB 26.6 pg 25.9-32.7 33 Mean Corpuscular HGB Conc 34.0 g/dL 30.8-34.3 33 Platelet Count 275 K/uL 150-400 33 Red Cell Distri Width SD 37.6 fl 3-47 33 Red Cell Distri Width %CV 13.4 % 11.7-14.4 33 Mean Platelet Volume 11.6 fL 8.9-12.4 33 Neut% 58.8 % 40.4-72.8 33 Lymph % 31.7 % 20.0-42.0 33 Fajardo % 6.9 % 4.3-13.2 33 Eo% 1.4 % 0.0-6.6 33 Bas% 1.2 % High 0.0-1.1 33 Neut# 2.96 K/uL 1.8-7.0 33 Lymph # 1.60 K/uL 1.0-4.0 33 F[place]ardo # 0.35 K/uL 0.3-0.9 33 Eos # 0.07 K/uL 0.0-0.5 33 Baso # 0.06 K/uL 0.0-0.1 33 Laboratory test finding 06/17/2017 Bilirubin,Total 3.0 mg/dL High 0.2-1.0 37 Bilirubin,Direct 0.2 mg/dL 0.0-0.2 37 Gamma Glutamyl Transpeptidase 20 U/L 5-85 37 Thyroid Stim Hormone 1.52 uIU/mL 0.30-4.20 37 Free T4 1.01 ng/dL 0.76-1.46 37 Hepatitis B Surface Antigen Negative Negative 37 Hepatitis B Surface Antibody Non Reactive . 37, 38 Hepatitis B Core Antibody-IgM Negative Negative 37 Hepatitis C Antibody < 0.1 s/corat 0.0-0.9 37, 39 Uzvca-8-Aeqrfrmvaig,Serum 96 mg/dL 90-200 37 Ceruloplasmin 24.8 mg/dL 19.0-39.0 37 Nucleotidase,5 5 IU/L 0-10 37 Protein Electro.,S 06/17/2017 Protein,Total,Serum 6.9 g/dL 6.0-8.5 37 Albumin 4.2 g/dL 2.9-4.4 37 Obbzf-5-Eurgeiqq 0.1 g/dL 0.0-0.4 37 Aqskl-8-Kynxbalv 0.6 g/dL 0.4-1.0 37 Beta Globulin 0.9 g/dL 0.7-1.3 37 Gamma Globulin 1.0 g/dL 0.4-1.8 37 M-David Not Observed g/dL Not Observed 37 Globulin, Total 2.7 g/dL 2.2-3.9 37 A/G Ratio 1.6 0.7-1.7 37 Please Note: (SEE NOTE) 37, 40 P E Interpretation, Serum (SEE NOTE) 37, 41 Laboratory test 06/17/2017 Antinuclear Antibodies, Negative . 37, 42 finding Ifa Celiac Disease Comp AB 06/17/2017 Immunoglobulin A 141 mg/dL 87-352 37 Profile Antigliadin Abs, IgG 1 units 0-19 37, 43 Antigliadin Abs, IgA 4 units 0-19 37, 44 Endomysial IgA Antibody Negative Negative 37 t-Transglutaminase IgA <2 U/mL 0-3 37, 45 t-Transglutaminase IgG <2 U/mL 0-5 37, 46 Laboratory test 06/17/2017 Mitochondrial (M2) 3.5 units 0.0-20.0 37, 47 finding Antibodies Actin (Smooth Muscle) Antibody 8 units 0-19 37, 48 Hepatitis A AB, Total Negative Negative 37 Hep B Core AB Total Negative Negative 37, 49 Hepatitis Panel Acute 06/04/2017 Hepatitis A AB Igm <pending> Hepatitis B Core AB Igm <pending> Hepatitis B Surface Antigen <pending> Hepatitis C Virus <pending> Hemoglobin/Hematocrit 02/21/2017 Hemoglobin 10.1 gm/dL Low 11.6-15.8 50 Hematocrit 29.3 % Low 36.0-46.1 50 Comprehensive Metabolic Panel 02/21/2017 Glucose 82 mg/dL 74-106 50 BUN 4 mg/dL Low 7-18 50 Creatinine 0.5 mg/dL Low 0.6-1.3 50 Glom Filtration Rate, Estimate >60 mL/min >60 50 If >60 mL/min >60 50, 51 BUN/Creat 8.0 ratio 50 Sodium 143 mmol/L 136-145 50 Potassium 3.4 mmol/L Low 3.5-5.1 50 Chloride 108 mmol/L High 98-107 50 Carbon Dioxide 26 mmol/L 21-32 50 Anion Gap 9 mEq/L 8-16 50 Calcium 8.3 mg/dL Low 8.5-10.1 50 Total Protein 5.4 g/dL Low 6.4-8.2 50 Albumin 2.0 g/dL Low 3.4-5.0 50 Globulin 3.4 g/dL 1.9-4.3 50 Alb/Glob 0.6 ratio 50 Bilirubin,Total 0.8 mg/dL 0.2-1.0 50 Sgot/Ast 38 U/L High 15-37 50 SGPT/Alt 26 U/L 12-78 50 Alkaline Phosphatase 237 U/L High 45-117 50 Ua Routine 02/20/2017 Urine Color YELLOW Yellow 50 Urine Clarity CLEAR Clear 50 Urine Glucose - Dipstick NEGATIVE mg/dL Negative 50 Urine Bilirubin - Dipstick NEGATIVE Negative 50 Urine Ketone NEGATIVE mg/dL Negative 50 Urine Specific [place] <=1.005 Low 1.010-1.030 50 Urine Blood MODERATE Negative 50 Urine PH 6.5 6.5-7.5 50 Urine Protein - Dipstick NEGATIVE mg/dL Negative 50 Urine Urobilinogen - Dipstick 0.2 E.U./dL 0.2-1.0 50 Urine Nitrite - Dipstick NEGATIVE Negative 50 Urine Leuk Esterase NEGATIVE Negative 50 Urine RBC 5-10 rbc/hpf High 0-2 50 Urine WBC NONE SEEN wbc/hpf 0-7 50 Urine Epithelial Cells NONE SEEN /lpf None Seen 50 Source: URINE, STRAIGHT <SEE NOTE> 50, 52 Laboratory test finding 02/20/2017 Uric Acid 4.3 mg/dL 2.6-6.0 50, 53 LDH 200 U/L 84-246 50, 54 Comprehensive Metabolic Panel 02/20/2017 Glucose 73 mg/dL Low 74-106 50 BUN 3 mg/dL Low 7-18 50 Creatinine 0.5 mg/dL Low 0.6-1.3 50 Glom Filtration Rate, Estimate >60 mL/min >60 50 If >60 mL/min >60 50, 55 BUN/Creat 6.0 ratio 50 Sodium 142 mmol/L 136-145 50 Potassium 2.8 mmol/L Low 3.5-5.1 50 Chloride 110 mmol/L High 98-107 50 Carbon Dioxide 24 mmol/L 21-32 50 Anion Gap 8 mEq/L 8-16 50 Calcium 8.0 mg/dL Low 8.5-10.1 50 Total Protein 4.7 g/dL Low 6.4-8.2 50 Albumin 1.8 g/dL Low 3.4-5.0 50 Globulin 2.9 g/dL 1.9-4.3 50 Alb/Glob 0.6 ratio 50 Bilirubin,Total 1.4 mg/dL High 0.2-1.0 50 Sgot/Ast 29 U/L 15-37 50 SGPT/Alt 23 U/L 12-78 50 Alkaline Phosphatase 218 U/L High 45-117 50 CBC 02/20/2017 White Blood Count 9.1 K/uL 3.1-10.7 50 Red Blood Count 3.49 M/uL Low 3.90-5.40 50 Hemoglobin 9.6 gm/dL Low 11.6-15.8 50 Hematocrit 27.6 % Low 36.0-46.1 50 Mean Cell Volume 79.1 fl Low 80.9-99.0 50 Mean Corpuscular HGB 27.5 pg 25.9-32.7 50 Mean Corpuscular HGB Conc 34.8 g/dL High 30.8-34.3 50 Platelet Count 187 K/uL 150-400 50 Red Cell Distri Width %CV 13.5 % 11.7-14.4 50 Mean Platelet Volume 10.6 fL 8.9-12.4 50 CBC 02/18/2017 White Blood Count 7.3 K/uL 3.1-10.7 50 Red Blood Count 4.13 M/uL 3.90-5.40 50 Hemoglobin 11.4 gm/dL Low 11.6-15.8 50 Hematocrit 32.2 % Low 36.0-46.1 50 Mean Cell Volume 78.0 fl Low 80.9-99.0 50 Mean Corpuscular HGB 27.6 pg 25.9-32.7 50 Mean Corpuscular HGB Conc 35.4 g/dL High 30.8-34.3 50 Platelet Count 234 K/uL 150-400 50 Red Cell Distri Width %CV 13.6 % 11.7-14.4 50 Mean Platelet Volume 10.8 fL 8.9-12.4 50 Type And Screen 02/18/2017 Patient Blood Type O POS 50 Antibody Screen Negative Negative 50 Laboratory test finding 02/18/2017 Treponema Antibody Negative 50, 56 [place] CBC 11/28/2016 White Blood Count 8.2 K/uL 3.1-10.7 57 Red Blood Count 4.43 M/uL 3.90-5.40 57 Hemoglobin 12.2 gm/dL 11.6-15.8 57 Hematocrit 36.1 % 36.0-46.1 57 Mean Cell Volume 81.5 fl 80.9-99.0 57 Mean Corpuscular HGB 27.5 pg 25.9-32.7 57 Mean Corpuscular HGB Conc 33.8 g/dL 30.8-34.3 57 Platelet Count 228 K/uL 150-400 57 Red Cell Distri Width %CV 13.7 % 11.7-14.4 57 Mean Platelet Volume 11.3 fL 8.9-12.4 57 Aot Request 11/28/2016 Aot Request Test(s) added 57, 58 Tests to be added: UDOA 57 Ua Routine 11/28/2016 Urine Color YELLOW Yellow 57 Urine Clarity CLEAR Clear 57 Urine Glucose - Dipstick NEGATIVE mg/dL Negative 57 Urine Bilirubin - Dipstick NEGATIVE Negative 57 Urine Ketone NEGATIVE mg/dL Negative 57 Urine Specific [place] 1.020 1.010-1.030 57 Urine Blood SMALL Negative 57 Urine PH 7.0 6.5-7.5 57 Urine Protein - Dipstick NEGATIVE mg/dL Negative 57 Urine Urobilinogen - Dipstick 0.2 E.U./dL 0.2-1.0 57 Urine Nitrite - Dipstick NEGATIVE Negative 57 Urine Leuk Esterase SMALL Negative 57 Urine RBC 2-5 rbc/hpf 0-2 57 Urine WBC 0-2 wbc/hpf 0-7 57 Urine Epithelial Cells FEW /lpf None Seen 57 Urine Bacteria FEW None Seen 57 Source: URINE, CLEAN CAT <SEE NOTE> 57, 59 Drugs Of Abuse-Urine Screen 7 11/28/2016 Amphetamines (Urine) Negative 57 Barbiturates (Urine) Negative 57 Benzodiazepines (Urine) Negative 57 Cannabinoids (Urine) Negative 57 Cocaine Metabolite (Urine) Negative 57 Methadone (Urine) Negative 57 Opiates (Urine) Negative 57 Urine Cutoffs * 57, 60 Urine Culture 11/28/2016 Urine Culture NO GROWTH: FINAL 57, 61 <SEE NOTE> Laboratory test finding 09/17/2015 HCG, Quant < 1.0 mIU/mL 62 Differential-WBC 04/23/2015 Total Cells Counted 100 #CELLS Confirm Band% 1 % 0-8 Neutrophils% 49 % 28-68 Lymph% 45 % 17-56 Monocyte% 5 % 0-10 Platelet Estimate NORMAL Microcytosis 1+ Methylenetetrahydrofolate Redu 04/23/2015 MTHFR,Dna Analysis See Note 63 Additional Information See Note 64 References See Note 65 Factor II Dna Analysis 04/23/2015 Factor II, Dna Analysis See Note 66 Comment See Note 67 Comprehensive Metabolic Panel 04/23/2015 Glucose 93 mg/dL 74-106 BUN 16 mg/dL 7-18 Creatinine 0.7 mg/dL 0.6-1.3 Glom Filtration Rate, Estimate >60 mL/min >60 If >60 mL/min >60 68 BUN/Creat 22.8 ratio Sodium 136 mmol/L 136-145 Potassium 3.8 mmol/L 3.5-5.1 Chloride 106 mmol/L 98-107 Carbon Dioxide 22 mmol/L 21-32 Anion Gap 8 mEq/L 8-16 Calcium 8.9 mg/dL 8.5-10.1 Total Protein 8.0 g/dL 6.4-8.2 Albumin 3.7 g/dL 3.4-5.0 Globulin 4.3 g/dL 1.9-4.3 Alb/Glob 0.9 ratio Bilirubin,Total 1.9 mg/dL High 0.2-1.0 Sgot/Ast 25 U/L 15-37 SGPT/Alt 36 U/L 12-78 Alkaline Phosphatase 118 U/L High 45-117 Laboratory test finding 04/23/2015 Sedimentation Rate 14 mm/hr 0-20 Vitamin B12 And Folate 04/23/2015 Vitamin B12 421 pg/mL 193-986 Folic Acid 32.6 ng/mL High 3.1-17.5 Laboratory test finding 04/23/2015 Ferritin 26 ng/mL 8-252 Iron-Tibc-%Sat 04/23/2015 Serum Iron 93 g/dL 50-170 Total Iron Binding Capacity 496 g/dL High 250-450 Transferrin %Saturation 19 % 12-57 Laboratory test finding 04/23/2015 Methylmalonic Acid (S) 140 nmol/L 0- 378 69 Homocyst(E)Ine, Plasma 7.2 umol/L 0.0-15.0 70 CBS W/Automated Diff 04/23/2015 White Blood Count 4.5 K/uL 3.1-10.7 Red Blood Count 5.10 M/uL 3.90-5.40 Hemoglobin 13.2 gm/dL 11.6-15.8 Hematocrit 38.7 % 36.0-46.1 Mean Cell Volume 75.9 fl Low 80.9-99.0 Mean Corpuscular HGB 25.9 pg 25.9-32.7 Mean Corpuscular HGB Conc 34.1 g/dL 30.8-34.3 Platelet Count 317 K/uL 155-360 Red Cell Distri Width SD 39.0 fl 3-47 Red Cell Distri Width %CV 14.5 % High 11.7-14.4 Mean Platelet Volume 10.9 fL 8.9-12.4 Neut# 2.33 K/uL 1.0-7.0 Lymph # 1.75 K/uL Low 1.8-7.0 [place] # 0.31 K/uL 0.3-0.9 Eos # 0.04 K/uL 0.0-0.5 Baso # 0.09 K/uL 0.0-0.1 Laboratory test finding 04/10/2015 Urine Culture See Note 71 Affirm 04/10/2015 Trichomonas vaginalis Negative [Negative] Gardnerella vaginalis Negative [Negative] Destiny species Negative [Negative] Chlamydia/GC Ariella 04/10/2015 Chlamydia Trachomatis, Ariella Negative Negative Neisseria Gonorrhoeae, Ariella Negative Negative Please note: See Note 72 Antithrombin III Panel 04/08/2015 Antithrombin III Activity 120 % 75-135 Antithrombin III Antigen 111 % 75-130 Lupus Anticoagulant Reflex 04/08/2015 PTT-LA 38.3 sec 0.0-50.0 DRVVT 36.9 sec 0.0-55.1 Note: Comment: . 73 Laboratory test finding 04/08/2015 Protein C,Functional 132 % 74-151 74 Protein S,Functional 91 % 60-145 75 LC Miscellaneous Test Request See Note 76 Anticardiolipin AB Iga/Igg/Igm 04/08/2015 Anticardiolipin Igg 17 GPLU/mL High 0-14 77 Anticardiolipin Igm, Quant < 9 MPLU/mL 0-12 78 Anticardiolipin Iga < 9 APLU/mL 0-11 79 Chlamydia/GC Ariella 10/24/2014 Chlamydia Trachomatis, Ariella Negative Negative Neisseria Gonorrhoeae, Ariella Negative Negative Please note: See Note 80 Genital Culture W/ Gram Stain 10/24/2014 Genital Culture See Note 81 Gram Stain See Note 82 Laboratory test finding 08/28/2014 Antithrombin III Activity 138 % High 75 -135 Antithrombin III Antigen 121 % 75-130 Protein C,Functional 131 % 74-151 Protein S,Functional 81 % 60-145 83 Laboratory test 07/14/2014 Rapid Plasma Reagin Nonreactive 84 finding Nonreactive CBC 07/14/2014 Hematocrit 31.2 % Low 36.0-46.1 Hemoglobin 10.9 gm/dL Low 11.6-15.8 Mean Cell Volume 80.4 fl Low 80.9-99.0 Mean Corpuscular HGB 28.1 pg 25.9-32.7 Mean Corpuscular HGB Conc 34.9 g/dL High 30.8-34.3 Mean Platelet Volume 10.8 fL 8.9-12.4 Platelet Count 241 K/uL 155-360 Red Blood Count 3.88 M/uL Low 3.90-5.40 Red Cell Distri Width %CV 13.8 % 11.7-14.4 White Blood Count 13.6 K/uL High 3.1-10.7 Type And Screen 07/14/2014 Antibody Screen Negative Negative Patient Blood Type O Pos Laboratory test finding 07/14/2014 Urine Screen See Note 85 Urinalysis With Microscopic 07/14/2014 Urine Bacteria Very Few None Seen Urine Bilirubin - Dipstick Negative Negative Urine Blood Small High Negative Urine Clarity Clear Clear Urine Color Straw Yellow Urine Epithelial Cells Very Few None Seen /lpf Urine Glucose - Dipstick Negative mg/dL Negative Urine Ketone Negative mg/dL Negative Urine Leuk Esterase Small High Negative Urine Nitrite - Dipstick Negative Negative Urine PH 6.5 6.5-7.5 Urine Protein - Dipstick Negative mg/dL Negative Urine RBC 0-2 rbc/hpf 0-7 Urine Specific [place] <=1.005 Low 1.010-1.030 Urine Uric Acid Crystals Few None Seen Urine Urobilinogen - Dipstick 0.2 E.U./dL 0.2-1.0 Urine WBC 0-2 wbc/hpf 0-7 Chlamydia/GC Ariella 06/10/2014 Chlamydia Trachomatis, Ariella Negative Negative Neisseria Gonorrhoeae, Ariella Negative Negative Please note: See Note 86 Laboratory test finding 06/10/2014 Vaginal Strep Screen See Note 87 Laboratory test finding 05/10/2014 Anticardiolipin Igg 9 GPLU/mL 0-14 88 Anticardiolipin Igm, Quant < 9 MPL U/mL 0-12 89 Antithrombin III Activity 155 % High 75-135 Antithrombin III Antigen 111 % 75-130 DRVVT 42.8 sec 0.0-55.1 Note: Comment: . 90 PTT-LA 36.2 sec 0.0-50.0 Protein C,Functional 164 % High 74-151 Protein S,Functional 53 % Low 60-145 91 Factor V Leiden Mutation 05/10/2014 . See Note 92 Factor V Leiden See Note 93 Lupus Anticoagulant Reflex 05/10/2014 DRVVT 42.8 sec 0.0-55.1 Note: Comment: . 94 PTT-LA 36.2 sec 0.0-50.0 Laboratory test finding 05/02/2014 1 HR Glucose,Post Glucola 138 mg/dL - 138 95 1 Hour Urine Glucose See Note % Negative 96 1 Hour Urine Ketone See Note Negative 97 Varicella-Zoster Virus IgG Ab 1069 Immune>165ind 98 Hemoglobin/Hematocrit 05/02/2014 Hematocrit 30.0 % Low 36.0-46.1 Hemoglobin 10.6 gm/dL Low 11.6-15.8 Laboratory test finding 12/21/2013 Antibody Detection See Note 99 Bas% 0.3 % 0.0-1.1 Baso # 0.02 K/uL 0.0-0.1 Eo% 1.7 % 0.0-6.6 Eos # 0.13 K/uL 0.0-0.5 Hematocrit 37.4 % 36.0-46.1 Hemoglobin 12.4 gm/dL 11.6-15.8 Hepatitis B Surface Antigen Nonreactive Nonreactive 100 Lead,Blood (Adult) 1 g/dL 0-19 101 Lymph # 1.73 K/uL 0.8-3.4 Lymph % 23.2 % 17.0-46.1 Mean Cell Volume 81.7 fl 80.9-99.0 Mean Corpuscular HGB 27.1 pg 25.9-32.7 Mean Corpuscular HGB Conc 33.2 g/dL 30.8-34.3 Mean Platelet Volume 11.7 fL 8.9-12.4 [place] # 0.54 K/uL 0.0-0.6 [place] % 7.2 % 4.3-13.2 Neut# 5.03 K/uL 1.0-7.0 Neut% 67.6 % 28.0-68.0 Platelet Count 229 K/uL 155-360 Rapid Plasma Reagin Nonreactive Nonreactive 102 Red Blood Count 4.58 M/uL 3.90-5.40 Red Cell Distri Width %CV 13.3 % 11.7-14.4 Red Cell Distri Width SD 38.4 fl 3-47 Rubella IgG Iu/ml > 500.0 Iu/ml >=10.0 103 Urine Culture See Note 104 White Blood Count 7.5 K/uL 3.1-10.7 Urine Screen 12/21/2013 Urine Bilirubin - Dipstick Negative Negative Urine Blood Negative Negative Urine Clarity SL Cloudy Clear Urine Color Yellow Yellow Urine Glucose - Dipstick Negative mg/dL Negative Urine Ketone Negative mg/dL Negative Urine Leuk Esterase Negative Negative Urine Nitrite - Dipstick Negative Negative Urine PH 6.5 6.5-7.5 Urine Protein - Dipstick Negative mg/dL Negative Urine Specific [place] 1.010 1.010-1.030 Urine Urobilinogen - Dipstick 0.2 E.U./dL 0.2-1.0 Type And Screen 12/21/2013 Antibody Screen Negative Negative Patient Blood Type O Pos Genital Culture W/ Gram Stain 11/20/2013 Genital Culture See Note 105 Gram Stain See Note 106 Chlamydia/GC Ariella 11/20/2013 Chlamydia Trachomatis, Ariella Negative Negative Neisseria Gonorrhoeae, Ariella Negative Negative Please note: See Note 107 Laboratory test finding 11/20/2013 Urine Culture See Note 108 1 E72.12 D68.61 2 Vitamin D deficiency has been defined by the [place] [employer] and an Endocrine Society practice guideline as a level of serum 25-OH vitamin D less than 20 ng/mL (1,2). The Endocrine Society went on to further define vitamin D insufficiency as a level between 21 and 29 ng/mL (2). 1. IOM ([place] [employer]). 2010. Dietary reference intakes for calcium and D. Daily [place]: The National Academies Press. 2. David MF, Keith NC, Helio HUGHES, et al. Evaluation, treatment, and prevention of vitamin D deficiency: an Endocrine Society clinical practice guideline. JCEM. 2010; 96(7):1911-30. Performed at: RN - [facility] [address] [id number] Car Sales Representative: Bibi Martinez MD, Phone: [phone] 3 Note: Persistent reduction for 3 months or more in an eGFR <60 mL/min/1.73 m2 defines CKD. Patients with eGFR values >/=60 mL/min/1.73 m2 may also have CKD if evidence of persistent proteinuria is present. The original MDRD equation for estimated GFR is not valid for patients less than 18 years of age. Additional information may be found at www.kdoqi.org. 4 Values below the stated reference ranges of AST and ALT can be seen in normal populations. Clinical correlation is suggested. 5 Note: Persistent reduction for 3 months or more in an eGFR <60 mL/min/1.73 m2 defines CKD. Patients with eGFR values >/=60 mL/min/1.73 m2 may also have CKD if evidence of persistent proteinuria is present. The original MDRD equation for estimated GFR is not valid for patients less than 18 years of age. Additional information may be found at www.kdoqi.org. 6 Vitamin D deficiency has been defined by the [place] [employer] and an Endocrine Society practice guideline as a level of serum 25-OH vitamin D less than 20 ng/mL (1,2). The Endocrine Society went on to further define vitamin D insufficiency as a level between 21 and 29 ng/mL (2). 1. IOM ([place] [employer]). 2010. Dietary reference intakes for calcium and D. Daily [place]: The National Academies Press. 2. Keith Milan, Helio HUGHES et al. Evaluation, treatment, and prevention of vitamin D deficiency: an Endocrine Society clinical practice guideline. JCEM. 2010; 96(7):1911-30. Performed at: [address] [id number] Car Sales Representative: Bibi Martinez MD, Phone: [phone] 7 Vitamin D deficiency has been defined by the [place] [employer] and an Endocrine Society practice guideline as a level of serum 25-OH vitamin D less than 20 ng/mL (1,2). The Endocrine Society went on to further define vitamin D insufficiency as a level between 21 and 29 ng/mL (2). 1. IOM ([place] [employer]). 2010. Dietary reference intakes for calcium and D. Daily [place]: The National Academies Press. 2. Keith Milan, Helio HUGHES, et al. Evaluation, treatment, and prevention of vitamin D deficiency: an Endocrine Society clinical practice guideline. JCEM. 2010; 96(7):1911-30. Performed at: [address] [id number] Car Sales Representative: Bibi Martinez MD, Phone: [phone] 8 Note: Persistent reduction for 3 months or more in an eGFR <60 mL/min/1.73 m2 defines CKD. Patients with eGFR values >/=60 mL/min/1.73 m2 may also have CKD if evidence of persistent proteinuria is present. The original MDRD equation for estimated GFR is not valid for patients less than 18 years of age. Additional information may be found at www.kdoqi.org. 9 GASTROSCOPY [id number] 10 FIRST MORNING SPECIMENS GENERALLY CONTAIN THE HIGHEST CONCENTRATION OF HCG AND ARE RECOMMENDED FOR EARLY DETECTION OF . Method: Quidel QuickVue One-Step Immunoassay 11 R10.00 K76.0 12 This test was developed and its performance characteristics determined by [facility]. It has not been cleared or approved by the Food and Drug Administration. 13 Specimen received had a pH less than five (<5.0). Porphyrins are not stable at low pH. Interpret results with caution. If acid preservative was used, consider resubmitting an aliquot from a sample that was collected with 5g sodium carbonate/L urine. A sample with no preservative is also acceptable. 14 This test was developed and its performance characteristics determined by [employer]. It has not been cleared or approved by the Food and Drug Administration. Performed at: [address] [id number] Car Sales Representative: Kyle Morrison MD, Phone: [phone] 15 N91.1,R55,R94.31,R79.1,I87.8,R10.11 16 Performed at: [address] [id number] Car Sales Representative: Bibi Martinez MD, Phone: [phone] 17 No hemoglobin concentration provided; hemoglobin of 14.5 g/dL used to calculate results. INTERPRETIVE INFORMATION: Porphobilinogen Deaminase, RBC Porphobilinogen (PBG) deaminase (hydroxymethylbilane synthase or uroporphyrinogen I synthase) is expressed in units of mU per g hemoglobin at 37 degrees C. In persons genetically susceptible to acute intermittent porphyria (AIP), PBG deaminase concentrations are approximately half of reference values. Normal concentrations of erythrocyte PBG deaminase may include abnormal forms of hepatic PBG deaminase. 18 Reference Range 0.0 - 1.0 ug/dL=normal > 1.0 ug/dL=elevated The performance characteristics of the listed assay were validated by [facility]. The [place] FDA has not approved or cleared this test. The results of this assay can be used for clinical diagnosis without FDA approval. [employer] is a CLIA certified, CAP accredited laboratory for performing high complexity assays such as this one. Performed at: Y8 - [facility] [address] [place] [id number] Car Sales Representative: Tamir Mendez MD, Phone: [phone] Performed at: E=- [facility] [address] [place] [id number] Car Sales Representative: Huang Villasenor PhD, Phone: [phone] Performed at: [address] [id number] 19 R10.11,K76.0 20 F0 - No fibrosis 21 S0 - S1 No Steatosis - Minimal Steatosis 22 N0 - Not THOMAS 23 Quantitative results of 10 biochemicals in combination with age, gender, height, and weight, are analyzed using a computational algorithm to provide a quantitative surrogate marker (0.0-1.0) of liver fibrosis (Metavir F0-F4), hepatic steatosis (0.0-1.0, S0-S3), and Non-Alcoholic Steato- Hepatitis (THOMAS) (0.0-0.75, N0-N2). The absence of steatosis (S<0.38) precludes the diagnosis of THOMAS. Fibrosis marker: In a study of 171 Non-Alcoholic Fatty Liver Disease (NAFLD) patients where 23% had significant NAFLD fibrosis (Metavir F2-F4) and 11% had cirrhosis by liver biopsy, a fibrosis result of >0.3 yielded a sensitivity of 83% and a specificity of 78% for the detection of significant fibrosis(1). Steatosis Marker: In a population of 744 patients (583 HCV, 18 HBV, 69 NAFLD, and 74 alcoholic disease patients), where 36% had significant steatosis (>5%) on a liver biopsy, a steatosis score >0.5 had a sensitivity of 71% and a specificity of 72% for identification of significant steatosis(2). THOMAS marker: In a population of 257 NAFLD patients, where 62% had at least some THOMAS by liver biopsy, a prediction of THOMAS had a sensitivity of 88% for identifying THOMAS and a specificity of 50%(3). 24 <0.21=Stage F0 - No fibrosis 0.21 - 0.27=Stage F0 - F1 0.27 - 0.31=Stage F1 - Portal fibrosis 0.31 - 0.48=Stage F1 - F2 0.48 - 0.58=Stage F2 - Bridging fibrosis with few septa 0.58 - 0.72=Stage F3 - Bridging fibrosis with many septa 0.72 - 0.74=Stage F3 - F4 >0.74=Stage F4 - Cirrhosis 25 < 0.30=S0 - No Steatosis 0.30 to 0.38=S0 - S1 0.38 to 0.48=S1 - Minimal Steatosis 0.48 to 0.57=S1 - S2 0.57 to 0.67=S2 - Moderate Steatosis 0.67 to 0.69=S2 - S3 > 0.69=S3 - Marked or Severe Steatosis 26 0.25=N0 - Not THOMAS 0.50=N1 - Borderline or probable THOMAS 0.75=N2 - THOMAS 27 THOMAS FibroSure is recommended for patients with suspected non-alcoholic fatty liver disease. It is not recommended for patients with other liver diseases. It is also not recommended in patients with Gilbert Disease, acute hemolysis, acute viral hepatitis, drug induced hepatitis, genetic liver disease, autoimmune hepatitis and/or extra- hepatic cholestasis. Any of these clinical situations may lead to inaccurate quantitative predictions of fibrosis. 28 Performed at: - [address] [id number] Car Sales Representative: Kyle Morrison MD, Phone: [phone] Performed at: [facility] [address] [id number] Car Sales Representative: Bibi Martinez MD, Phone: [phone] 29 This test was developed and its performance characteristics determined by [facility]. It has not been cleared or approved by the Food and Drug Administration. The FDA has determined that such clearance or approval is not necessary. For questions regarding this report please contact customer service at . References: 1. Theresa Mcclain et al. Diagnostic Value of Biochemical Markers (FibroTest) for the prediction of Liver Fibrosis in patients with Non-Alcoholic Fatty Liver Disease. BMC Gastroenterology 2006; 6:6. 2. Delvin Gold. et al. The Diagnostic Value of Biomarkers (Steato Test) for the Prediction of Liver Steatosis. Comparative Hepatol. 2005; 4:10. 3. Delvin Gold, Fawn Cardenas, et al. Diagnostic value of biochemical markers (THOMAS TEST) for the prediction of non alcohol steato hepatitis in patients with non- alcoholic fatty liver disease. BMC Gastroenterology 2006; 6:34 doi:10.1186/5411-024A-5-34. 30 INFCE Result Units: %mean normal Abnormal <41 Equivocal 41 - 67 Normal >67 31 Note: Persistent reduction for 3 months or more in an eGFR <60 mL/min/1.73 m2 defines CKD. Patients with eGFR values >/=60 mL/min/1.73 m2 may also have CKD if evidence of persistent proteinuria is present. The original MDRD equation for estimated GFR is not valid for patients less than 18 years of age. Additional information may be found at www.kdoqi.org. 32 Values below the stated reference ranges of AST and ALT can be seen in normal populations. Clinical correlation is suggested. 33 N91.1,R55,R94.31,R79.1,I87.8,R10.11 34 This test was developed and its performance characteristics determined by [facility]. It has not been cleared or approved by the Food and Drug Administration. 35 Performed at: [address] [id number] Car Sales Representative: Kyle Morrison MD, Phone: [phone] 36 Factor VIII quantitation (non-functional) measures the quantity of the factor VIII protein (factor VIII antigen) and is NOT a measure of the von Willebrand antigen (previously called factor VIII-related antigen). To evaluate for von Willebrand disease, vWF antigen and/or vWF activity should be ordered. Reference Range: 18 - 60y: 64 - 189 Performed at: [facility] [address] [id number] Car Sales Representative: Jordan Hammond MD, Phone: [phone] 37 R SIDE PAIN X 3 DAYS. WORSENING 38 Non Reactive: Inconsistent with immunity, less than 10 mIU/mL Reactive: Consistent with immunity, greater than 9.9 mIU/mL 39 INFCE Result Units: s/co ratio Negative: < 0.8 Indeterminate: 0.8 - 0.9 Positive: > 0.9 The CDC recommends that a positive HCV antibody result be followed up with a HCV Nucleic Acid Amplification test ([id number]). Performed at: [facility] [address] [id number] Car Sales Representative: Bibi Martinez MD, Phone: [phone] 40 Protein electrophoresis scan will follow via computer, mail, or product support analyst delivery. 41 The SPE pattern appears essentially unremarkable. Evidence of monoclonal protein is not apparent. 42 Negative <1:80 Borderline 1:80 Positive >1:80 43 Negative 0 - 19 Weak Positive 20 - 30 Moderate to Strong Positive >30 44 Negative 0 - 19 Weak Positive 20 - 30 Moderate to Strong Positive >30 45 Negative 0 - 3 Weak Positive 4 - 10 Positive >10 Tissue Transglutaminase (tTG) has been identified as the endomysial antigen. Studies have demonstr- ated that endomysial IgA antibodies have over 99% specificity for gluten sensitive enteropathy. 46 Negative 0 - 5 Weak Positive 6 - 9 Positive >9 47 Negative 0.0 - 20.0 Equivocal 20.1 - 24.9 Positive >24.9 Mitochondrial (M2) Antibodies are found in 90-96% of patients with primary biliary cirrhosis. 48 Negative 0 - 19 Weak positive 20 - 30 Moderate to strong positive >30 Actin Antibodies are found in 52-85% of patients with autoimmune hepatitis or chronic active hepatitis and in 22% of patients with primary biliary cirrhosis. 49 Performed at: [facility] [id number] Car Sales Representative: Bibi Martinez MD, Phone: [phone] Performed at: [facility] [address] [id number] Car Sales Representative: Kyle Morrison MD, Phone: [phone] 50 INDUCTION OF LABOR 51 Note: Persistent reduction for 3 months or more in an eGFR <60 mL/min/1.73 m2 defines CKD. Patients with eGFR values >/=60 mL/min/1.73 m2 may also have CKD if evidence of persistent proteinuria is present. The original MDRD equation for estimated GFR is not valid for patients less than 18 years of age. Additional information may be found at www.kdoqi.org. 52 URINE, STRAIGHT CATHETHER 53 CALLED "K" TO MOHSEN Lockett AT 0955 02/20/17 by LAB.RAP 54 CALLED "K" TO MOHSEN Lockett AT 0955 02/20/17 by LAB.RAP 55 Note: Persistent reduction for 3 months or more in an eGFR <60 mL/min/1.73 m2 defines CKD. Patients with eGFR values >/=60 mL/min/1.73 m2 may also have CKD if evidence of persistent proteinuria is present. The original MDRD equation for estimated GFR is not valid for patients less than 18 years of age. Additional information may be found at www.kdoqi.org. 56 Performed at: [address] [id number] Car Sales Representative: Kyle Morrison MD, Phone: [phone] 57 25 WEEKS, ABD PAIN/PRESSURE 58 Tests: UDOA Instructions: 59 URINE, CLEAN CATCH 60 URINE SPECIMENS ARE SCREENED AT THE LISTED CUTOFFS DRUG CLASS INITIAL TEST LEVEL Amphetamines 1000 ng/mL Barbiturates 200 ng/mL Benzodiazepines 200 ng/mL Cannabinoids 50 ng/mL Cocaine Metabolite 300 ng/mL Methadone 300 ng/mL Opiates 300 ng/mL Any PRESUMPTIVE POSITIVE findings are UNCONFIRMED. Confirmatory testing is suggested if findings are unexpected. Please contact laboratory if confirmatory testing is desired. SPECIMENS ARE HELD FOR 72 HOURS. 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 The MTHFR C677T variant was not identified. This MTHFR result is not associated with an increased risk of hyperhomocysteinemia, venous thrombosis, coronary artery disease, or recurrent loss. However, hyperhomocysteinemia may also occur due to mutations in enzymes other than MTHFR that are involved in homocysteine metabolism, or arise due to acquired factors. In the evaluation of vascular and obstetric risk, consider measuring fasting homocysteine. Other risk factors may be detected through systematic clinical laboratory analysis. 64 Genetic counselors are available to discuss these results with health care providers at [phone]. Methylenetetrahydrofolate reductase (MTHFR) is a hernadez enzyme in the folate pathway and is responsible for the metabolism of homocysteine. There are two common variants in the MTHFR gene, c.655C>T (p.Ade648Lmz), referred to as C677T, and c.1286A>C (p.Tvg940Oxz), referred to as J4001M. Individuals homozygous for C677T (two copies of the variant), have decreased activity of the MTHFR enzyme and a predisposition to hyperhomocysteinemia, particularly when deficient in folate. Hyperhomocysteinemia is a risk factor for venous thrombosis and coronary artery disease and is associated with an increased risk of open neural tube defects. The C677T variant does not independently increase risk of these conditions in the absence of hyperhomocysteinemia. The Z4216L variant is not associated with elevated homocysteine levels unless a C677T variant is also present; however, the clinical significance of heterozygosity for both C677T and Z9020P is controversial. Population data suggest that these two variants are not present on the same chromosome, but rare exceptions have been reported of triple variant MTHFR genotypes (ie. homozygous for one variant and heterozygous for the other). Homozygosity for C677T has an estimated frequency of 10% to 15% in Caucasians and 25% in Hispanics. Additional information: Dietary folic acid, B6 and B12 supplementation has been suggested to lower homocysteine levels in some people. Folic acid supplementation has been shown to reduce the occurrence of neural tube defects. Methodology: DNA analysis of the MTHFR gene was performed by PCR amplification followed by restriction analysis. The diagnostic sensitivity is >99% for both. Molecular-based testing is highly accurate, but as in any laboratory test, rare diagnostic errors may occur. All test results must be combined with clinical information for the most accurate interpretation. 65 Ki LD, Elmer Q. Am J Epidemiol 2000; 151(9):862-877. Maulik MM, Merrill JA. Arch Pathol Lab Med 2007; 131(6):872-884. Frosst P et al. Vera Ping 1995; 10(1):111- 113. Vishnu SE et al. Ping Med 2013; 15(2):153-156. Rampart C et al. Obstet Gynecol 2011; 118(3):730-740. Tom B et al. Eur J Epidemiol 2013; 28(8):621-647. Robinson Blunt, PhD Amairani Mcintyre, PhD Martha Olvera, PhD Ree Carbajal, MS, PhD Gertrude Chua, PhD Alissa Ngo, PhD Performed at: TG - [facility] [address] [place], [place] [id number] Car Sales Representative: Julio Cesar Luke MD, Phone: [phone] 66 NEGATIVE No mutation identified. Comment: A point mutation ([id number]) in the factor II (prothrombin) gene is the second most common cause of inherited thrombophilia. The incidence of this mutation in the [place] population is about 2% and in the population it is approximately 0.5%. This mutation is rare in the and population. Being heterozygous for a prothrombin mutation increases the risk for developing venous thrombosis about 2 to 3 times above the general population risk. Being homozygous for the prothrombin gene mutation increases the relative risk for venous thrombosis further, although it is not yet known how much further the risk is increased. In women heterozygous for the prothrombin gene mutation, the use of estrogen containing oral contraceptives increases the relative risk of venous thrombosis about 16 times and the risk of developing cerebral thrombosis is also significantly increased. In the prothrombin gene mutation increases risk for venous thrombosis and may increase risk for stillbirth, placental abruption, pre-eclampsia and growth restriction. If the patient possesses two or more congenital or acquired thrombophilic risk factors, the risk for thrombosis may rise to more than the sum of the risk ratios for the individual mutations. This assay detects only the prothrombin [id number] mutation and does not measure genetic abnormalities elsewhere in the genome. Other thrombotic risk factors may be pursued through systematic clinical laboratory analysis. These factors include the R506Q (Leiden) mutation in the Factor V gene, plasma homocysteine levels, as well as testing for deficiencies of antithrombin III, protein C and protein S. 67 Genetic Counselors are available for health care providers to discuss results at [phone] Methodology: DNA analysis of the Factor II gene was performed by PCR amplification followed by restriction analysis. The diagnostic sensitivity is >99% for both. All the tests must be combined with clinical information for the most accurate interpretation. Molecular-based testing is highly accurate, but as in any laboratory test, diagnostic errors may occur. Norma SR, et al. Blood. 1996; 88:8609-8073. Bobby SMITH. Circulation. 2004; 110:e15-e18. Deshawn I, et al. Arterioscler Thromb Vasc Biol. 1999; 19:700-703. Robinson Blunt, PhD Amairani Mcintyre, PhD Martha Olvera, PhD Ree Carbajal, PhD Gertrude Chua, PhD Alissa Ngo, PhD Performed at: [facility] [address] [place], [place] [id number] Car Sales Representative: Julio Cesar Luke MD, Phone: [phone] 68 Note: Persistent reduction for 3 months or more in an eGFR <60 mL/min/1.73 m2 defines CKD. Patients with eGFR values >/=60 mL/min/1.73 m2 may also have CKD if evidence of persistent proteinuria is present. The original MDRD equation for estimated GFR is not valid for patients less than 18 years of age. Additional information may be found at www.kdoqi.org. 69 Performed at: [address] [id number] Car Sales Representative: Kyle [place] MD, Phone: [phone] 70 Performed at: [address] [id number] Car Sales Representative: Bibi Martinez MD, Phone: [phone] 71 Organism 1 ! URETHRAL ABI Quantity ! 50,000 - 100,000 CFU/mL 72 Acceptable specimens for this test are male urethral swab, endocervical swab and liquid based pap specimens, vaginal swabs in APTIMA transports and first void urine. See online Directory of Services for test number for rectal and pharyngeal specimens. Performed at: [address] [id number] Car Sales Representative: Bibi Martinez MD, Phone: [phone] 73 No lupus anticoagulant was detected. 74 Performed at: [address] [id number] Car Sales Representative: Kyle Morrison MD, Phone: [phone] 75 Performed at: [address] [id number] Car Sales Representative: Kyle Morrison MD, Phone: [phone] 76 04/08/15 LAB.JWR WRONG TEST ORDERED 77 Negative: <15 Indeterminate: 15 - 20 Low-Med Positive: >20 - 80 High Positive: >80 78 Negative: <13 Indeterminate: 13 - 20 Low-Med Positive: >20 - 80 High Positive: >80 79 Negative: <12 Indeterminate: 12 - 20 Low-Med Positive: >20 - 80 High Positive: >80 Performed at: [address] [id number] Car Sales Representative: Bibi Martinez MD, Phone: [phone] 80 Acceptable specimens for this test are male urethral swab, endocervical swab and liquid based pap specimens, vaginal swabs in APTIMA transports and first void urine. See online Directory of Services for test number for rectal and pharyngeal specimens. Performed at: [address] [id number] Car Sales Representative: Bibi Martinez MD, Phone: [phone] 81 GENITAL ABI 82 GRAM STAIN ! GRAM STAIN INDETERMINANT FOR BACTERIAL VAGINOSIS ! FEW GRAM POSITIVE COCCI ! VERY FEW GRAM POS BACILLI SUGGESTIVE OF CORYNEBACTERIA 83 Performed at: [address] [id number] Car Sales Representative: Kyle Morrison MD, Phone: [phone] 84 PENDING; TEST PERFORMED ON MONDAYS AND THURSDAYS 85 07/14/14 LAB.MPK Deleted by [employer] 86 Acceptable specimens for this test are male urethral swab, endocervical swab and liquid based pap specimens, vaginal swabs in APTIMA transports and first void urine. See online Directory of Services for test number for rectal and pharyngeal specimens. Performed at: [address] [id number] Car Sales Representative: Bibi Martinez MD, Phone: [phone] 87 NO GROUP B STREPTOCOCCI ISOLATED 88 Negative: <15 Indeterminate: 15 - 20 Low-Med Positive: >20 - 80 High Positive: >80 89 Negative: <13 Indeterminate: 13 - 20 Low-Med Positive: >20 - 80 High Positive: >80 Performed at: [address] [id number] Car Sales Representative: Bibi Martinez MD, Phone: [phone] Performed at: [facility] [id number] [place], [place] [id number] Car Sales Representative: Kyle Morrison MD, Phone: [phone] 90 No lupus anticoagulant was detected. 91 A deficiency of protein S (PS), either congenital or acquired, increases the risk of thromboembolism. Congenital deficiencies of PS are very rare; acquired PS deficiency is much more common. Acquired deficiency can occur as the result of decreased PS synthesis or increased consumption. PS synthesis can be diminished in a number of conditions including anti-vitamin K (warfarin) therapy, vitamin K deficiency, severe liver disease, and malnutrition. PS levels decrease with normal . Levels may be spuriously decreased in individuals with Factor V Leiden. Levels may be decreased in nephrotic syndrome, women on oral contraceptive/hormone replacement therapy and in patients receiving chemotherapy or L-asparaginse therapy. PS consumption can occur during disseminated intravascular coagulation (DIC) and acute thrombosis. It has been suggested that repeat blood sampling and testing after ruling out acquired causes of deficiency should be performed before the patient is diagnosed with congenital Protein S deficiency. 92 Genetic counselors are available for health care providers to discuss results at [phone] ([phone]). Methodology: DNA analysis of the Factor V gene was performed by allele- specific PCR followed by gel electrophoresis. The diagnostic sensitivity and specificity is >99% for both. Molecular- based testing is highly accurate, but as in any laboratory test, diagnostic errors may occur. All test results must be combined with clinical information for the most accurate interpretation. References: Kanu Pride (1995). Clin Lab Med 16:169-186. Kamran Mayo, PhD Verónica Mckinney, PhD Jennifer Miranda, PhD Martha Smith, PhD Martha Olvera, PhD MD Nupur Rai MD, PhD ÁNGEL Littlejohn, PhD Performed at: [facility] [address] [place], [place] [id number] Car Sales Representative: Julio Cesar Luke MD, Phone: [phone] 05/16/14 1414: . previously reported as: Amended result called to: [] - 05/16/14 at 1414 93 Result: Negative (no mutation found) Factor V Leiden is a specific mutation (R506Q) in the factor V gene that is associated with an increased risk of venous thrombosis. Factor V Leiden is more resistant to inactivation by activated protein C. As a result, factor V persists in the circulation leading to a mild hyper- coagulable state. The Leiden mutation accounts for 90% - 95% of APC resistance. Factor V Leiden has been reported in patients with deep vein thrombosis, pulmonary embolus, central retinal vein occlusion, cerebral sinus thrombosis and hepatic vein thrombosis. Other risk factors to be considered in the workup for venous thrombosis include the [id number] mutation in the factor II (prothrombin) gene, protein S and C deficiency, and antithrombin deficiencies. Anticardiolipin antibody and lupus anticoagulant analysis may be appropriate for certain patients, as well as homocysteine levels. Contact your local [facility] for information on how to order additional testing if desired. 94 No lupus anticoagulant was detected. 95 POST GLUCOLA 96 NO SPECIMEN RECEIVED 97 NO SPECIMEN RECEIVED 98 Negative <135 Equivocal 135 - 165 Positive >165 A positive result generally indicates exposure to the pathogen or administration of specific immunoglobulins, but it is not indication of active infection or stage of disease. Performed at: [facility] [address] [id number] Car Sales Representative: Bibi Martinez MD, Phone: [phone] 99 No reportable results 100 HBsAg not detected; does not exclude the possibility of exposure to or early acute infections with HBV. 101 CDC (Centers for Disease Control) and the ACCLPP (Advisory Committee on Childhood Lead Poisoning Prevention) have reported adverse health events with pediatric blood lead levels greater than or equal to 5 ug/dL. [facility] Guidelines : Blood lead levels in the range of 5-9 ug/dL have been associated with adverse health effects in children aged six years and younger. Environmental Exposure : WHO Recommendation <20 Occupational Exposure: OSHA Lead Std 40 Detection Limit=1 Performed at: [facility] [address] [id number] Car Sales Representative: Bibi Martinez MD, Phone: [phone] 102 PENDING; TEST PERFORMED ON MONDAYS AND THURSDAYS 103 Values >=10.0 IU/mL are positive for IgG antibodies to rubella virus and are considered IMMUNE. 104 COLONY COUNT ! 20,000-30,000 CFU/ml Organism 1 ! MIXED URETHRAL ABI 105 GENITAL ABI 106 GRAM STAIN ! GRAM STAIN INDICATES NORMAL GENITAL ABI ! MANY GR POS. BACILLI SUGGESTIVE OF LACTOBACILLUS SP. ! VERY FEW GRAM POSITIVE COCCI 107 Acceptable specimens for this test are male urethral swab, endocervical swab and liquid based pap specimens, vaginal swabs in APTIMA transports and first void urine. See online Directory of Services for test number for rectal and pharyngeal specimens. Performed at: RN - [facility] [address] [id number] Car Sales Representative: Biib Martinez MD, Phone: [phone] 108 COLONY COUNT ! 1,000 - 5,000 CFU/ml Organism 1 ! URETHRAL ABI Procedures Date CPT Code Description Status 12/27/2017 87038 Theraputic Or Diagnostic Injection Completed 12/13/2017 32541 Theraputic Or Diagnostic Injection Completed 06/30/2017 33406 EGD Completed 02/11/2017 29192 EKG-Tracing And Report Completed 02/09/2017 19189 Echocardiogram Complete Completed 02/09/2017 64156 EKG Interpretation And Report Only Completed 04/11/2015 63826 Eye Exam New Patient Comprehensive Completed 08/28/2014 93149 Post- Care Only Completed 07/15/2014 47440 Vaginal Delivery Global Care Completed 07/15/2014 05611 Anesthesia,Neuraxial Labor Completed 07/08/2014 91358 Antepartum 7 Or More Total Office Visit Completed 07/01/2014 40092 Antepartum 7 Or More Total Office Visit Completed 06/25/2014 79129 Antepartum 7 Or More Total Office Visit Completed 06/10/2014 19878 Antepartum 7 Or More Total Office Visit Completed 05/27/2014 21286 Antepartum 7 Or More Total Office Visit Completed 05/02/2014 65199 Antepartum 7 Or More Total Office Visit Completed 04/01/2014 41287 Antepartum 7 Or More Total Office Visit Completed 02/26/2014 06010 Antepartum 7 Or More Total Office Visit Completed 01/24/2014 11599 Antepartum 7 Or More Total Office Visit Completed 12/21/2013 15896 Antepartum 7 Or More Total Office Visit Completed 07/23/2013 55394 xray spine cervical min 4 views Completed Encounters Type Date Location Provider CPT E/M Dx Office Visit 03/31/2018 2:[place] [address] R10.11 K76.0 E80.4 Office Visit 03/24/2018 12:00p Urology Aditya Shields M.D. 82462 N20.0 Office Visit 12/15/2017 1:00p Surgical Office Hunter Coulter, 98042 R10.9 MJanetDJanet Office Visit 12/13/2017 9:00a [place] [address] E72.12 R10.9 E55.9 E53.9 E61.1 Office Visit 11/30/2017 3:00[place] [address] E72.12 D68.61 R10.9 E55.9 Office Visit 11/28/2017 3:45p Surgical Office Hunter Coulter, 61529 E72.12 Kurtis R10.11 Office Visit 10/07/2017 10:00a [place] [address] E72.12 D68.61 R10.11 Office Visit 06/24/2017 9:00a [place] [address] D68.61 E72.12 R10.9 N92.0 Office Visit 06/22/2017 1:30[place] [address] I87.8 R10.11 K76.0 E80.4 Office Visit 02/11/2017 1:00p [place] [address] R55 R94.31 Office Visit 09/17/2015 3:30p Family Medicine Fawn Blackwell M.D. 67195 N91.1 Office Visit 07/11/2015 9:00a Family Medicine Maureen Chou, [facility] [address]52 Z30.09 Z30.018 Z23 Office Visit 05/06/2015 11:30a [place] [address] R79.1 Office Visit 04/23/2015 10:00a [place] [address] R79.1 Office Visit 04/10/2015 11:00[place] [address] 790.92 723.1 626.4 Office Visit 04/10/2015 9:15a Family Medicine Maureen Chou, 37523 626.4 DIGESTER COOK Office Visit 09/04/2013 8:45a Orthopaedic Office Cindi Flowers, [address] 719.41 RPA 723.1 719.41 723.1 Office Visit 07/23/2013 8:30a Orthopaedic Office Cindi Flowers, [facility] [address]64 723.1 719.41 723.1 719.41 Office Visit 06/28/2013 2:30p Orthopaedic Office Cindi Flowers, 03126 719.41 RPA 719.41 Plan of Care Future Appointment(s):05/05/2018 3:30 pm - Harman Govea MD at [facility]09/25/2018 9:30 am - Aditya Shields M.D. at [facility]/31/2018 - Harman Govea, MDR10.11 Right upper quadrant painNew Labs:C1 Esterase Inhibit FuncC1 Esterase Inhibit TotalComplement C4BMP W/EgfrNew Xrays:CT, Angio Abdomen & PelvisComments: Will ask PCP to consider GC/Chlamydia swab to consider Fonb-Hxfc-Ohmosh Syndrome Will consider CTA as d/w Dr Hilliard up:F/U in 4 gviqeF37.0 Fatty ( change of) liver, not elsewhere classifiedComments:YcyhlxY39.4 Gilbert syndromeComments:Hyperbilirubinemia - mostly indirect with normal GGTP and 5' nucleotidase in the past - rest of the unremarkable chronic liver disease work up
--- OUTSIDE RECORDS SUMMARY | 2018-04-04 07:33 | XMS REPORT ---
:1995 External Reference #:[id number] Author Organization [facility] 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 Hypercoagulability state [...] 1 Unknown /0000 capsule every 12 hours Hydrocodone-Acet Active Tablets 5-325mg prn Unknown aminophen /0000 given in ER Ergocalciferol 12/13 Hx Capsules [id number] 6caps 1 cap po Lita /2017 qweek Boufal, DO - 03/24 Ergocalciferol 11/14 Hx Capsules [id number] 6caps 1 cap po Lita /2018 qweek Boufal, DO - 11/30 Bactrim DS 11/14 Hx Tablets 800-160mg 14tab 1 tabl Lita s by mouth Bonancyal, DO - twice a No Active 10/07 Hx Unknown Medications /2017 - 10/07 No Active 09/17 Hx Unknown Medications /2014 - 02/11 No Active 07/11 Hx Unknown Medications /2014 - 07/11 Ortho Evra 07/11 Hx Patches 150-35mcg 3unit apply Z30.018 Jenni Weekly /24HR s one [place] - patch to 09/17 hairless skin of the upper arms, abdomen or lower back x 3 weeks leave off 1 week - repeat Levonorgestrel 07/11 Hx Tablets 1.5mg 1tabs take on Z30.018 in event [place] - of 09/17 condom breakage Iron 05/06 Hx Tablets 325(65Fe) 30tab 1 tabl Lita mg s by mouth DO Malcolm - Alison,W,F 07/11 No Active 04/10 Hx Unknown Medications /2014 - 04/10 Norethindrone 04/10 Hx Tablets 1-20mg-mc 1pack one po 626.4 [facility] Acetate/Ethinyl g(24) qd [place] Estradiol/Ferrou - s Fumarate 07/11 Depo-Provera 10/15 Hx Suspension 150mg/ml 1unit every 3 [facility] s russ Kerns MD - 04/10 Cyclobenzaprine 07/24 Hx Tablets 5mg 30tab 1 po in [facility] s Kathi Benjamin M.D., HARRY 04/10 muscle spasms Cyclobenzaprine 07/23 Hx Tablets 7.5mg 20tab 1 po in [facility] s the Kathi Corral M.D., FACS 07/24 prior to bed Naproxen 06/28 Hx Tablets 375mg 60tab 1 po bid [facility] s with Kathi Corral M.D., FACS 04/10 Cryselle-28 Hx Tablets 0.3-30mg- 1pack 1 po qd Unknown /0000 mcg - 04/10 Ursodiol Hx Capsules 300mg 1 po tid Unknown /0000 Aspirin [address] 81mg 1 by Unknown /0000 mouth every day One Hx Tablets 1 by Unknown Daily /0000 mouth every day Ondansetron 00 Hx Tablets 4mg 1 tabs Unknown /0000 Dispers prn - 10/[address] 20mg 1 tab by Unknown /0000 mouth - every every morning Tylenol Extra Hx Tablets 500mg 1-2 tabs Unknown Strength /0000 by mouth - every 4 10/07 hours needed Vitamin D Hx Capsules [id number] take 1 Unknown (Ergocalciferol) /0000 capsule - by mouth 12/16 week Vitamin B Hx Injection 100 one shot Unknown Complex 100 /0000 once a - month 03/24 Medications Administered in Office Medication Date Status [...] Influenza Vaccine (Fluzone) Age 3 And Older [id number] Given 06/10/2014 Tdap injection 44216 Given 06/10/2014 flu vaccination Vital Signs Date Vital Result Comment 03/24/2018 BP Systolic 111 mmHg BP Diastolic [...] kg/m2 BSA (Body Surface Area) 1.72 m2 Rawson body weight in kilograms 52 02/11/2017 BP Systolic Sitting Right Arm 123 mmHg BP Diastolic Sitting Right Arm 73 mmHg Heart Rate 63 /min Respiratory Rate 18 /min Height 63 inches 5'3" Weight 177.00 lb BMI (Body Mass Index) 31.4 kg/m2 BSA (Body Surface Area) 1.84 m2 [place]son body weight in kilograms 52 09/17/2015 BP Systolic Sitting Left Arm 128 mmHg BP Diastolic Sitting Left Arm 74 mmHg Heart Rate 78 /min Respiratory Rate 19 /min Height 63 inches 5'3" Weight 178.00 lb BMI (Body Mass Index) 31.5 kg/m2 BSA (Body Surface Area) 1.84 m2 Last Menstrual Period [id number] 07/11/2015 BP Systolic 118 mmHg BP Diastolic 72 mmHg Height 64 inches 5'4" Weight 175.00 lb BMI (Body Mass Index) 30.0 kg/m2 BSA (Body Surface Area) 1.85 m2 Last Menstrual Period [id number] 05/06/2015 BP Systolic Sitting Left Arm 127 [...] Test Date Test Result H/L Range Note Comprehensive Metabolic Panel 12/27/2017 Glucose 102 mg/dL 74-106 1 BUN 17 mg/dL 7-18 1 Creatinine 0.6 mg/dL 0.6-1.3 1 Glom Filtration Rate, Estimate >60 mL/min >60 1 If >60 mL/min >60 1, 2 BUN/Creat 28.3 ratio 1 Sodium 140 mmol/L [...] 1 Sgot/Ast 14 U/L Low 15-37 1, 3 SGPT/Alt 20 U/L 12-78 1 Alkaline Phosphatase 82 U/L 45-117 1 CBS W/Automated Diff 12/27/2017 White Blood Count [...] 1 Lymph % 32.2 % 20.0-42.0 1 [place] % 6.4 % 4.3-13.2 1 Eo% 1.2 % 0.0-6.6 1 Bas% 1.1 % 0.0-1.1 1 Neut# 3.32 K/uL 1.8-7.0 1 Lymph # 1.81 K/uL 1.0-4.0 1 [place] # 0.36 K/uL 0.3-0.9 1 Eos # 0.07 K/uL 0.0-0.5 1 Baso # 0.06 K/uL 0.0-0.1 1 Iron-Tibc-%Sat 12/27/2017 Serum Iron 79 g/dL 50-170 1 Total Iron Binding Capacity 347 g/dL 250-450 1 Transferrin %Saturation 23 % 12-57 1 Laboratory test finding 12/27/2017 Ferritin 216 ng/mL 8-252 1 Laboratory test finding 12/27/2017 Vitamin D,25-Hydroxy 21.9 ng/mL Low 30.0-100.0 1, 4 Vitamin B12 And Folate 12/27/2017 Vitamin B12 505 pg/mL 193-986 1 Folic Acid 18.8 ng/mL High 3.1-17.5 1 Xray 12/12/2017 Gallbladder (Disida) W/Ef still wnl Iron-Tibc-%Sat 12/01/2017 Serum Iron 72 g/dL 50-170 1 Total Iron Binding Capacity 403 g/dL 250-450 1 Transferrin %Saturation 18 % 12-57 1 Laboratory test finding 12/01/2017 Ferritin 40 ng/mL 8-252 1 Vitamin B12 And Folate 12/01/2017 Vitamin B12 383 pg/mL 193-986 1 Folic Acid 18.2 ng/mL High 3.1-17.5 1 Laboratory test 12/01/2017 Vitamin D,25-Hydroxy 19.2 ng/mL Low 30.0-100.0 1, 5 finding CBS W/Automated Diff 12/01/2017 White Blood Count [...] 1 Lymph % 35.7 % 20.0-42.0 1 [place] % 7.2 % 4.3-13.2 1 Eo% 1.9 % 0.0-6.6 1 Bas% 1.1 % 0.0-1.1 1 Neut# 2.84 K/uL 1.8-7.0 1 Lymph # 1.88 K/uL 1.0-4.0 1 [place] # 0.38 K/uL 0.3-0.9 1 Eos # 0.10 K/uL 0.0-0.5 1 Baso # 0.06 K/uL 0.0-0.1 1 Comprehensive Metabolic Panel 12/01/2017 Glucose 96 mg/dL 74-106 1 BUN 16 mg/dL 7-18 1 Creatinine 0.7 mg/dL 0.6-1.3 1 Glom Filtration Rate, Estimate >60 mL/min >60 1 If >60 mL/min >60 1, 6 BUN/Creat 22.8 ratio 1 Sodium 138 mmol/L [...] 1 Alkaline Phosphatase 78 U/L 45-117 1 Laboratory test finding 10/07/2017 Abo/RH Type [...] 1 Lymph % 38.3 % 20.0-42.0 1 [place] % 7.5 % 4.3-13.2 1 Eo% 2.4 % 0.0-6.6 1 Bas% 2.0 % High 0.0-1.1 1 Neut# 2.51 K/uL 1.8-7.0 1 Lymph # 1.93 K/uL 1.0-4.0 1 [place] # 0.38 K/uL 0.3-0.9 1 Eos # [...] 1 Alkaline Phosphatase 80 U/L 45-117 1 Ala Delta, 24 Hour Urine 06/30/2017 Delta Ala 2.2 mg/L Undefined 9 Delta Ala 2.2 mg/24hr 0.5-5.1 9, 10 Laboratory test 06/30/2017 Urine HCG (Qualitative) NEGATIVE Negative 11 , 12 finding Porphobilinogen,QN,24H 06/30/2017 Porphobilinogen,QN,Urine 0.6 mg/L 0.0- 2.0 13 R Urine Porphobilinogen, 24HR (U) 0.6 mg/24hr 0.0-1.5 13, 14 Porphyrins,QN,24-HR Urine 06/30/2017 Uroporphyrin,Urine 5 ug/L Undefined 13, 15 Uroporphyrin 24 HR Urine 5 ug/24hr 0-24 13 Heptacarboxylporph,Urine 2 ug/L Undefined 13 Heptacarboxylporphyrin 2 ug/24hr 0-4 13 Hexacarboxylporph,Urine <1 ug/L Undefined 13 Hexacarboxylpor,24HR Urine <1 ug/24hr 0-1 13 Pentacarboxylporph,Urine 1 ug/L Undefined 13 Pentacarboxyl,24 HR Urine 1 ug/24hr 0-4 13 Coproporphyrin,Urine 15 ug/L Undefined 13 Coproporphyrin,24 HR Urine 15 ug/24hr 0-24 13 Coproporphyrin III 8 ug/L Undefined 13 Coproporph III, 24 Hour 8 ug/24hr 0-74 13 Thomas Fibrosure 06/24/2017 Thomas Fibrosis Score 0.08 0.00-0.21 16 Thomas Fibrosis Stage (SEE NOTE) 16, 17 Thomas Steatosis Score 0.33 High 0.00-0.30 16 Thomas Steatosis Grade (SEE NOTE) 16, 18 Thomas Score 0.25 0.25 16 Thomas Grade (SEE NOTE) 16, 19 Height 63 Inches . 16 Weight Measured 151 LBS . 16 Sabwg-1-Itxxoensxnhqi 137 mg/dL 110-276 16 Haptoglobin 204 mg/dL High 34-200 16 Apolipoprotein A-1 117 mg/dL 116-209 16 Bilirubin,Total 1.5 mg/dL High 0.0-1.2 16 GGT 15 IU/L 0-60 16 Alt (SGPT) 26 IU/L 0-40 16 Alt (Sgot) P5P 21 IU/L 0-40 16 Cholesterol,Total 125 mg/dL 100-199 16 Glucose, Serum 97 mg/dL 65-99 16 Triglycerides 83 mg/dL 0-149 16 Thomas Interpretations: (SEE NOTE) 16, 20 Fibrosis Scoring (SEE NOTE) 16, 21 Steatosis Grading (SEE NOTE) 16, 22 Thomas Scoring (SEE NOTE) 16, 23 Thomas Limitations (SEE NOTE) 16, 24 Thomas Comment . 16, 25 Thomas Comment 2 (SEE NOTE) 16, 26 Height 63 16 Weight 151 16 C1 Esterase Inhibitor 06/24/2017 C1 Esterase Inhibitor 96 %meanno . 16, 27 Function Function Height 63 16 Weight 151 16 C1 Esterase Inhibitor 06/24/2017 C1 Esterase Inhibitor 33 mg/dL 21-39 16 Height 63 16 Weight 151 16 Complement C4, Serum 06/24/2017 Complement C4, Serum 29 mg/dL 14-44 16 Height 63 16 Weight 151 16 CMP Panel (14 Test) 06/24/2017 Glucose 93 mg/dL 74-106 16 BUN 21 mg/dL High 7-18 16 Creatinine 0.7 mg/dL 0.6-1.3 16 Glom Filtration Rate, Estimate >60 mL/min >60 16 If >60 mL/min >60 16, 28 BUN/Creat 30.0 ratio 16 Sodium 141 mmol/L 136-145 16 Potassium 3.8 mmol/L 3.5-5.1 16 Chloride 110 mmol/L High 98-107 16 Carbon Dioxide 20 mmol/L Low 21-32 16 Anion Gap 11 mEq/L 8-16 16 Calcium 9.0 mg/dL 8.5-10.1 16 Total Protein 7.7 g/dL 6.4-8.2 16 Albumin 3.9 g/dL 3.4-5.0 16 Globulin 3.8 g/dL 1.9-4.3 16 Alb/Glob 1.0 ratio 16 Bilirubin,Total 1.8 mg/dL High 0.2-1.0 16 Sgot/Ast 14 U/L Low 15-37 16, 29 SGPT/Alt 26 U/L 12-78 16 Alkaline Phosphatase 71 U/L 45-117 16 Laboratory test finding 06/24/2017 Von Willebrand Factor Activity 51 % 50 -200 30 VWF Antigen 91 % 50-200 30, 31 Factor VIII Activity 80 % 57-163 30, 32 Factor VIII Antigen 124 % . 30, 33 CBS W/Automated Diff 06/24/2017 White Blood Count 5.0 K/uL 3.1-10.7 30 Red Blood Count 4.62 M/uL 3.90-5.40 30 Hemoglobin 12.3 gm/dL 11.6-15.8 30 Hematocrit 36.2 % 36.0-46.1 30 Mean Cell Volume 78.4 fl Low 80.9-99.0 30 Mean Corpuscular HGB 26.6 pg 25.9-32.7 30 Mean Corpuscular HGB Conc 34.0 g/dL 30.8-34.3 30 Platelet Count 275 K/uL 150-400 30 Red Cell Distri Width SD 37.6 fl 3-47 30 Red Cell Distri Width %CV 13.4 % 11.7-14.4 30 Mean Platelet Volume 11.6 fL 8.9-12.4 30 Neut% 58.8 % 40.4-72.8 30 Lymph % 31.7 % 20.0-42.0 30 [place] % 6.9 % 4.3-13.2 30 Eo% 1.4 % 0.0-6.6 30 Bas% 1.2 % High 0.0-1.1 30 Neut# 2.96 K/uL 1.8-7.0 30 Lymph # 1.60 K/uL 1.0-4.0 30 [place] # 0.35 K/uL 0.3-0.9 30 Eos # 0.07 K/uL 0.0-0.5 30 Baso # 0.06 K/uL 0.0-0.1 30 Laboratory test 06/24/2017 PBG Deaminase, 3.25 mU/gHb 2.10-4.30 30, 34 finding Erythrocyte Porphyrins,Serum,Total < 0.1 g/dL 0.0-1.0 30, 35 Homocyst(E)Ine, P/S 06/24/2017 Homocyst(e)ine, P/S 8.7 umol/L 0.0-15.0 30, 36 Laboratory test 06/17/2017 Bilirubin,Total 3.0 mg/dL High 0.2-1.0 37 finding Bilirubin,Direct 0.2 mg/dL 0.0-0.2 37 Gamma Glutamyl Transpeptidase 20 U/L 5-85 37 Thyroid Stim Hormone 1.52 uIU/mL 0.30-4.20 37 Free T4 1.01 ng/dL 0.76-1.46 37 Hepatitis B Surface Antigen Negative Negative 37 Hepatitis B Surface Antibody Non Reactive . 37, 38 Hepatitis B Core Antibody-IgM Negative Negative 37 Hepatitis C Antibody < 0.1 s/corat 0.0-0.9 37, 39 Ceysd-2-Xdaicklaive,Serum 96 mg/dL 90-200 37 Ceruloplasmin 24.8 mg/dL 19.0-39.0 37 Nucleotidase,5 5 IU/L 0-10 37 Protein Electro.,S 06/17/2017 Protein,Total,Serum 6.9 g/dL 6.0-8.5 37 Albumin 4.2 g/dL 2.9-4.4 37 Ssetx-1-Itjxbqcq 0.1 g/dL 0.0-0.4 37 Uljcr-3-Rirkxbsw 0.6 g/dL 0.4-1.0 37 Beta Globulin 0.9 [...] Alkaline Phosphatase 237 U/L High 45-117 50 CBC 02/20/2017 White [...] Mean Platelet Volume 10.6 fL 8.9-12.4 50 Comprehensive Metabolic Panel 02/20/2017 Glucose 73 mg/dL Low 74-106 50 BUN 3 mg/dL Low 7-18 50 Creatinine 0.5 mg/dL Low 0.6-1.3 50 Glom Filtration Rate, Estimate >60 mL/min >60 50 If >60 mL/min >60 50, 52 BUN/Creat 6.0 ratio 50 Sodium 142 mmol/L [...] Alkaline Phosphatase 218 U/L High 45-117 50 Laboratory test finding 02/20/2017 Uric Acid 4.3 mg/dL 2.6-6.0 50, 53 LDH 200 U/L 84-246 50, 54 Ua Routine 02/20/2017 Urine Color YELLOW Yellow 50 Urine Clarity CLEAR Clear 50 Urine Glucose - Dipstick NEGATIVE mg/dL Negative 50 Urine Bilirubin - Dipstick NEGATIVE Negative 50 Urine Ketone NEGATIVE mg/dL Negative 50 Urine Specific [place] <=1.005 Low 1.010-1.030 50 Urine Blood MODERATE [...] 50 Source: URINE, STRAIGHT <SEE NOTE> 50, 55 CBC 02/18/2017 White Blood Count 7.3 K/uL [...] finding 02/18/2017 Treponema Antibody Negative 50, 56 [place] CBC 11/28/2016 White Blood Count 8.2 K/uL [...] Ketone NEGATIVE mg/dL Negative 57 Urine Specific [place] 1.020 1.010-1.030 57 Urine Blood SMALL Negative [...] FINAL 57, 61 <SEE NOTE> Laboratory test 09/17/2015 HCG, Quant < 1.0 mIU/mL 62 finding CBS W/Automated Diff 04/23/2015 White Blood Count [...] 1.0-7.0 Lymph # 1.75 K/uL Low 1.8-7.0 [place] # 0.31 K/uL 0.3-0.9 Eos # 0.04 K/uL 0.0-0.5 Baso # 0.09 K/uL 0.0-0.1 Laboratory test finding 04/23/2015 Methylmalonic Acid (S) 140 nmol/L 0- 378 63 Homocyst(E)Ine, Plasma 7.2 umol/L 0.0-15.0 64 Iron-Tibc-%Sat 04/23/2015 Serum Iron 93 g/dL 50-170 Total Iron Binding Capacity 496 g/dL High 250-450 Transferrin %Saturation 19 % 12-57 Laboratory test finding 04/23/2015 Ferritin 26 ng/mL 8-252 Vitamin B12 And Folate 04/23/2015 Vitamin B12 421 pg/mL 193-986 Folic Acid 32.6 ng/mL High 3.1-17.5 Laboratory test finding 04/23/2015 Sedimentation Rate 14 mm/hr 0-20 Comprehensive Metabolic Panel 04/23/2015 Glucose 93 mg/dL 74-106 BUN 16 mg/dL 7-18 Creatinine 0.7 mg/dL 0.6-1.3 Glom Filtration Rate, Estimate >60 mL/min >60 If >60 mL/min >60 65 BUN/Creat 22.8 ratio Sodium 136 mmol/L 136-145 [...] 12-78 Alkaline Phosphatase 118 U/L High 45-117 Factor II Dna Analysis 04/23/2015 Factor II, Dna Analysis See Note 66 Comment See Note 67 Methylenetetrahydrofolate Redu 04/23/2015 MTHFR,Dna Analysis See Note 68 Additional Information See Note 69 References See Note 70 Differential-WBC Confirm 04/23/2015 Total Cells Counted 100 #CELLS Band% 1 % 0-8 Neutrophils% 49 % 28-68 Lymph% 45 % 17-56 Monocyte% 5 % 0-10 Platelet Estimate NORMAL Microcytosis 1+ Laboratory test finding 04/10/2015 Urine Culture See Note 71 Affirm 04/10/2015 Trichomonas vaginalis Negative [Negative] Gardnerella vaginalis Negative [Negative] Edstiny species Negative [Negative] Chlamydia/GC Ariella 04/10/2015 Chlamydia [...] Urine RBC 0-2 rbc/hpf 0-7 Urine Specific [place] <=1.005 Low 1.010-1.030 Urine Uric Acid Crystals Few None Seen Urine Urobilinogen - Dipstick 0.2 E.U./dL 0.2-1.0 Urine WBC 0-2 wbc/hpf 0-7 Laboratory test finding 06/10/2014 Vaginal Strep Screen See Note 86 Chlamydia/GC Ariella 06/10/2014 Chlamydia Trachomatis, Ariella Negative Negative Neisseria Gonorrhoeae, Ariella Negative Negative Please note: See Note 87 Laboratory test finding 05/10/2014 [...] Low 36.0-46.1 Hemoglobin 10.6 gm/dL Low 11.6-15.8 Urine Screen 12/21/2013 Urine Bilirubin - Dipstick Negative Negative Urine Blood Negative Negative Urine Clarity SL Cloudy Clear Urine Color Yellow Yellow Urine Glucose - Dipstick Negative mg/dL Negative Urine Ketone Negative mg/dL Negative Urine Leuk Esterase Negative Negative Urine Nitrite - Dipstick Negative Negative Urine PH 6.5 6.5-7.5 Urine Protein - Dipstick Negative mg/dL Negative Urine Specific [place] 1.010 1.010-1.030 Urine Urobilinogen - Dipstick 0.2 E.U./dL 0.2-1.0 Type And Screen 12/21/2013 Antibody Screen Negative Negative Patient Blood Type O Pos Laboratory test finding 12/21/2013 Antibody Detection See [...] 30.8-34.3 Mean Platelet Volume 11.7 fL 8.9-12.4 [place] # 0.54 K/uL 0.0-0.6 [place] % 7.2 % 4.3-13.2 Neut# 5.03 K/uL [...] 104 White Blood Count 7.5 K/uL 3.1-10.7 Genital Culture W/ Gram Stain 11/20/2013 Genital Culture See Note 105 Gram Stain See Note 106 Chlamydia/GC Ariella 11/20/2013 Chlamydia Trachomatis, Ariella Negative Negative Neisseria Gonorrhoeae, Ariella Negative Negative Please note: See Note 107 Laboratory test finding 11/20/2013 Urine Culture See Note 108 1 E72.12 D68.61 2 Note: Persistent reduction for 3 months or more in an eGFR <60 mL/min/1.73 m2 defines CKD. Patients with eGFR values >/=60 mL/min/1.73 m2 may also have CKD if evidence of persistent proteinuria is present. The original MDRD equation for estimated GFR is not valid for patients less than 18 years of age. Additional information may be found at www.kdoqi.org. 3 Values below the stated reference ranges of AST and ALT can be seen in normal populations. Clinical correlation is suggested. 4 Vitamin D deficiency has been defined by the [place] of [employer] and an Endocrine Society practice guideline as a level of serum 25-OH vitamin D less than 20 ng/mL (1,2). The Endocrine Society went on to further define vitamin D insufficiency as a level between 21 and 29 ng/mL (2). 1. IOM ([place] of [employer]). 2010. Dietary reference intakes for calcium and D. Daily [place]: The National Academies Press. 2. Keith Milan, Helio HUGHES, et al. Evaluation, treatment, and prevention of vitamin D deficiency: an Endocrine Society clinical practice guideline. JCEM. 2010; 96(7):1911-30. Performed at: - [facility] [address] [id number] Dormitory Counselor: Bibi Martinez MD, Phone: [phone] 5 Vitamin D deficiency has been defined by the [place] of [employer] and an Endocrine Society practice guideline as a level of serum 25-OH vitamin D less than 20 ng/mL (1,2). The Endocrine Society went on to further define vitamin D insufficiency as a level between 21 and 29 ng/mL (2). 1. IOM ([place] of [employer]). 2010. Dietary reference intakes for calcium and D. Daily [place]: The National Academies Press. 2. Keith Milan, Helio HUGHES, et al. Evaluation, treatment, and prevention of vitamin D deficiency: an Endocrine Society clinical practice guideline. JCEM. 2010; 96(7):1911-30. Performed at: - [facility] [id number] Dormitory Counselor: Bibi Martinez MD, Phone: [phone] 6 Note: Persistent reduction for 3 months or more in an eGFR <60 mL/min/1.73 m2 defines CKD. Patients with eGFR values >/=60 mL/min/1.73 m2 may also have CKD if evidence of persistent proteinuria is present. The original MDRD equation for estimated GFR is not valid for patients less than 18 years of age. Additional information may be found at www.kdoqi.org. 7 Vitamin D deficiency has been defined by the [place] [employer] and an Endocrine Society practice guideline as a level of serum 25-OH vitamin D less than 20 ng/mL (1,2). The Endocrine Society went on to further define vitamin D insufficiency as a level between 21 and 29 ng/mL (2). 1. IOM ([place] of Medicine). 2010. Dietary reference intakes for calcium and D. Daily [place]: The National Academies Press. 2. David MF, Keith NC, Helio HUGHES, et al. Evaluation, treatment, and prevention of vitamin D deficiency: an Endocrine Society clinical practice guideline. JCEM. 2010; 96(7):1911-30. Performed at: [facility] [id number] Dormitory Counselor: Bibi Martinez MD, Phone: [phone] 8 Note: Persistent reduction for 3 months or more in an eGFR <60 mL/min/1.73 m2 defines CKD. Patients with eGFR values >/=60 mL/min/1.73 m2 may also have CKD if evidence of persistent proteinuria is present. The original MDRD equation for estimated GFR is not valid for patients less than 18 years of age. Additional information may be found at www.kdoqi.org. 9 R10.00 K76.0 10 This test was developed and its performance characteristics determined [facility]. It has not been cleared or approved by the Food and Drug Administration. Performed at: [facility] [id number] Dormitory Counselor: Kyle Morrison MD, Phone: [phone] GASTROSCOPY [id number] 12 FIRST MORNING SPECIMENS GENERALLY CONTAIN THE HIGHEST CONCENTRATION OF HCG AND ARE RECOMMENDED FOR EARLY DETECTION OF . Method: Quidel QuickVue One-Step Immunoassay 13 R10.00 K76.0 14 This test was developed and its performance characteristics determined by [facility]. It has not been cleared or approved by the Food and Drug Administration. 15 Specimen received had a pH less than five (<5.0). Porphyrins are not stable at low pH. Interpret results with caution. If acid preservative was used, consider resubmitting an aliquot from a sample that was collected with 5g sodium carbonate/L urine. A sample with no preservative is also acceptable. 16 R10.11,K76.0 17 F0 - No fibrosis 18 S0 - S1 No Steatosis - Minimal Steatosis 19 N0 - Not THOMAS 20 Quantitative results of 10 biochemicals in combination [...] identifying THOMAS and a specificity of 50%(3). 21 <0.21=Stage F0 - No fibrosis 0.21 - 0.27=Stage F0 - F1 0.27 - 0.31=Stage F1 - Portal fibrosis 0.31 - 0.48=Stage F1 - F2 0.48 - 0.58=Stage F2 - Bridging fibrosis with few septa 0.58 - 0.72=Stage F3 - Bridging fibrosis with many septa 0.72 - 0.74=Stage F3 - F4 >0.74=Stage F4 - Cirrhosis 22 < 0.30=S0 - No Steatosis 0.30 to 0.38=S0 - S1 0.38 to 0.48=S1 - Minimal Steatosis 0.48 to 0.57=S1 - S2 0.57 to 0.67=S2 - Moderate Steatosis 0.67 to 0.69=S2 - S3 > 0.69=S3 - Marked or Severe Steatosis 23 0.25=N0 - Not THOMAS 0.50=N1 - Borderline or probable THOMAS 0.75=N2 - THOMAS 24 THOMAS FibroSure is recommended for patients with suspected non-alcoholic fatty liver disease. It is not recommended for patients with other liver diseases. It is also not recommended in patients with Gilbert Disease, acute hemolysis, acute viral hepatitis, drug induced hepatitis, genetic liver disease, autoimmune hepatitis and/or extra- hepatic cholestasis. Any of these clinical situations may lead to inaccurate quantitative predictions of fibrosis. 25 Performed at: [facility] [address] [id number] Dormitory Counselor: Kyle Morrison MD, Phone: [phone] Performed at: [facility] [address] [id number] Dormitory Counselor: Bibi Martinez MD, Phone: [phone] 26 This test was developed and its performance characteristics determined by [facility]. It has not been cleared or approved by the Food and Drug Administration. The FDA has determined that such clearance or approval is not necessary. For questions regarding this report please contact customer service at . References: 1. Theresa Barrientos al. Diagnostic Value of Biochemical Markers (FibroTest) for the prediction of Liver Fibrosis in patients with Non-Alcoholic Fatty Liver Disease. BMC Gastroenterology 2006; 6:6. 2. Bernarda Gold et al. The Diagnostic Value of Biomarkers (Steato Test) for the Prediction of Liver Steatosis. Comparative Hepatol. 2005; 4:10. 3. Delvin Gold, Fawn Cardenas, et al. Diagnostic value of biochemical markers (THOMAS TEST) for the prediction of non alcohol steato hepatitis in patients with non- alcoholic fatty liver disease. BMC Gastroenterology 2006; 6:34 doi:10.1186/8413-156I-7-34. 27 INFCE Result Units: %mean normal Abnormal <41 Equivocal 41 - 67 Normal >67 28 Note: Persistent reduction for 3 months or more in an eGFR <60 mL/min/1.73 m2 defines CKD. Patients with eGFR values >/=60 mL/min/1.73 m2 may also have CKD if evidence of persistent proteinuria is present. The original MDRD equation for estimated GFR is not valid for patients less than 18 years of age. Additional information may be found at www.kdoqi.org. 29 Values below the stated reference ranges of AST and ALT can be seen in normal populations. Clinical correlation is suggested. 30 N91.1,R55,R94.31,R79.1,I87.8,R10.11 31 This test was developed and its performance characteristics determined by [facility]. It has not been cleared or approved by the Food and Drug Administration. 32 Performed at: [address] [id number] Dormitory Counselor: Kyle Morrison MD, Phone: [phone] 33 Factor VIII quantitation (non-functional) measures the quantity of the factor VIII protein (factor VIII antigen) and is NOT a measure of the von Willebrand antigen (previously called factor VIII-related antigen). To evaluate for von Willebrand disease, vWF antigen and/or vWF activity should be ordered. Reference Range: 18 - 60y: 64 - 189 Performed at: [facility] [address] [id number] Dormitory Counselor: Jordan Hammond MD, Phone: [phone] 34 No hemoglobin concentration provided; hemoglobin of 14.5 [...] include abnormal forms of hepatic PBG deaminase. 35 Reference Range 0.0 - 1.0 ug/dL=normal > 1.0 ug/dL=elevated The performance characteristics of the listed assay were validated by [facility]. The [place] FDA has not approved or cleared this test. The results of this assay can be used for clinical diagnosis without FDA approval. [facility] is a CLIA certified, CAP accredited laboratory for performing high complexity assays such as this one. Performed at: [facility] [address] [place], [place] [id number] Dormitory Counselor: Tamir Mendez MD, Phone: [phone] Performed at: [facility] [address] [place], [place] [id number] Dormitory Counselor: Huang Villasenor PhD, Phone: [phone] Performed at: [facility] [address] [id number] 36 Performed at: [address] [id number] Dormitory Counselor: Bibi Martinez MD, Phone: [phone] 37 R SIDE PAIN X 3 DAYS. WORSENING 38 Non Reactive: Inconsistent with immunity, less than 10 mIU/mL Reactive: Consistent with immunity, greater than 9.9 mIU/mL 39 INFCE Result Units: s/co ratio Negative: < 0.8 Indeterminate: 0.8 - 0.9 Positive: > 0.9 The CDC recommends that a positive HCV antibody result be followed up with a HCV Nucleic Acid Amplification test (798158). Performed at: [address] [id number] Dormitory Counselor: Bibi Martinez MD, Phone: [phone] 40 Protein electrophoresis scan will follow via computer, mail, or pier hand delivery. 41 The SPE pattern appears essentially [...] with primary biliary cirrhosis. 49 Performed at: [address] [id number] Dormitory Counselor: Bibi Martinez MD, Phone: [phone] Performed at: [address] [id number] Dormitory Counselor: Kyle Morrison MD, Phone: [phone] 50 INDUCTION OF LABOR 51 Note: Persistent [...] information may be found at www.kdoqi.org. 52 Note: Persistent reduction for 3 months or more in an eGFR <60 mL/min/1.73 m2 defines CKD. Patients with eGFR values >/=60 mL/min/1.73 m2 may also have CKD if evidence of persistent proteinuria is present. The original MDRD equation for estimated GFR is not valid for patients less than 18 years of age. Additional information may be found at www.kdoqi.org. 53 CALLED "K" TO MOHSEN Lockett AT 0955 02/20/17 by LAB.RAP 54 CALLED "K" TO MOHSEN Lockett AT 0955 02/20/17 by [facility] 55 URINE, STRAIGHT CATHETHER 56 Performed at: [address] [id number] Dormitory Counselor: Kyle Morrison MD, Phone: [phone] 25 WEEKS, ABD PAIN/PRESSURE 58 Tests: [...] mIU/mL 2 - 3 Months............10,000-100,000 mIU/mL 63 Performed at: - [facility] [address] [id number] Dormitory Counselor: Kyle Morrison MD, Phone: [phone] 64 Performed at: - [facility] [address] [id number] Dormitory Counselor: Bibi Martinez MD, Phone: [phone] 65 Note: Persistent reduction for 3 months or more in an eGFR <60 mL/min/1.73 m2 defines CKD. Patients with eGFR values >/=60 mL/min/1.73 m2 may also have CKD if evidence of persistent proteinuria is present. The original MDRD equation for estimated GFR is not valid for patients less than 18 years of age. Additional information may be found at www.kdoqi.org. 66 NEGATIVE No mutation identified. Comment: A point mutation ([id number]) in the factor II (prothrombin) gene is [...] mutations. This assay detects only the prothrombin X81748I mutation and does not measure genetic abnormalities [...] health care providers to discuss results at [phone] [place] ([phone]). Methodology: DNA analysis of the Factor II gene was performed by PCR amplification followed by restriction analysis. The diagnostic sensitivity is >99% for both. All the tests must be combined with clinical information for the most accurate interpretation. Molecular-based testing is highly accurate, but as in any laboratory test, diagnostic errors may occur. Poort SR, et al. Blood. 1996; 88:1151-8475. Bobby EA. Circulation. 2004; 110:e15-e18. Deshawn I, et al. Arterioscler Thromb Vasc Biol. 1999; 19:700-703. 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 The MTHFR C677T variant [...] be detected through systematic clinical laboratory analysis. 69 Genetic counselors are available to discuss these results with health care providers at [phone]. Methylenetetrahydrofolate reductase (MTHFR) is a hernadez enzyme in the folate pathway and is responsible for the metabolism of homocysteine. There are two common variants in the MTHFR gene, c.655C>T (p.Atl434Pwc), referred to as C677T, and c.1286A>C (p.Txh220Fot), referred to as R4346Y. Individuals homozygous for C677T (two copies of [...] conditions in the absence of hyperhomocysteinemia. The G9015E variant is not associated with elevated homocysteine levels unless a C677T variant is also present; however, the clinical significance of heterozygosity for both C677T and S0474B is controversial. Population data suggest that these [...] clinical information for the most accurate interpretation. 70 Ki STEVENSON, Elmer Q. Am J Epidemiol 2000; 151(9):862-877. Maulik MM, Merrill AVALOS. Arch Pathol Lab Med 2007; 131(6):872-884. Frosst P et al. Vera Ping 1995; 10(1):111- 113. Hickey SE et al. Ping Med 2013; 15(2):153-156. Point C et al. Obstet Gynecol 2011; 118(3):730-740. Tom B et al. Eur J Epidemiol 2013; 28(8):621-647. Robinson Blunt, PhD Amairani Mcintyre, PhD Martha Olvera, PhD Ree Carbajal, MS, PhD Gertrude Chua, PhD Alissa Ngo, PhD Performed at: [address] [id number] Dormitory Counselor: Julio Cesar Luke MD, Phone: [phone] 71 Organism 1 ! URETHRAL ABI Quantity ! 50,000 - 100,000 CFU/mL 72 Acceptable specimens for this test are male urethral swab, endocervical swab and liquid based pap specimens, vaginal swabs in APTIMA transports and first void urine. See online Directory of Services for test number for rectal and pharyngeal specimens. Performed at: [address] [id number] Dormitory Counselor: Bibi Martinez MD, Phone: [phone] 73 No lupus anticoagulant was detected. 74 Performed at: [address] [id number] Dormitory Counselor: Kyle Morrison MD, Phone: [phone] 75 Performed at: [address] [id number] Dormitory Counselor: Kyle Morrison MD, Phone: [phone] 76 04/08/15 LAB.JWR WRONG TEST ORDERED 77 Negative: <15 Indeterminate: 15 - 20 Low-Med Positive: >20 - 80 High Positive: >80 78 Negative: <13 Indeterminate: 13 - 20 Low-Med Positive: >20 - 80 High Positive: >80 79 Negative: <12 Indeterminate: 12 - 20 Low-Med Positive: >20 - 80 High Positive: >80 Performed at: [address] [id number] Dormitory Counselor: Bibi Martinez MD, Phone: [phone] 80 Acceptable specimens for this test are male urethral swab, endocervical swab and liquid based pap specimens, vaginal swabs in APTIMA transports and first void urine. See online Directory of Services for test number for rectal and pharyngeal specimens. Performed at: [address] [id number] Dormitory Counselor: Bibi Martinez MD, Phone: [phone] 81 GENITAL ABI 82 GRAM STAIN ! GRAM STAIN INDETERMINANT FOR BACTERIAL VAGINOSIS ! FEW GRAM POSITIVE COCCI ! VERY FEW GRAM POS BACILLI SUGGESTIVE OF CORYNEBACTERIA 83 Performed at: [address] [id number] Dormitory Counselor: Kyle Morrison MD, Phone: [phone] 84 PENDING; TEST PERFORMED ON MONDAYS AND THURSDAYS 85 07/14/14 LAB.MPK Deleted by [employer] UACOM 86 NO GROUP B STREPTOCOCCI ISOLATED 87 Acceptable specimens for this test are male urethral swab, endocervical swab and liquid based pap specimens, vaginal swabs in APTIMA transports and first void urine. See online Directory of Services for test number for rectal and pharyngeal specimens. Performed at: [address] [id number] Dormitory Counselor: Bibi Martinez MD, Phone: [phone] 88 Negative: <15 Indeterminate: 15 - 20 Low-Med Positive: >20 - 80 High Positive: >80 89 Negative: <13 Indeterminate: 13 - 20 Low-Med Positive: >20 - 80 High Positive: >80 Performed at: [address] [id number] Dormitory Counselor: Bibi Martinez MD, Phone: [phone] Performed at: [address] [id number] Dormitory Counselor: Kyle Morrison MD, Phone: [phone] 90 No lupus anticoagulant was detected. 91 [...] health care providers to discuss results at [phone] ([phone]). Methodology: DNA analysis of the Factor V gene was performed by allele- specific PCR followed by gel electrophoresis. The diagnostic sensitivity and specificity is >99% for both. Molecular- based testing is highly accurate, but as in any laboratory test, diagnostic errors may occur. All test results must be combined with clinical information for the most accurate interpretation. References: Kanu Pride (1996). Clin Lab Med 16:169-186. Kamran Mayo, PhD Verónica Mckinney, PhD Jennifer Miranda, PhD Martha Smith, PhD Martha Olvera, PhD MD Nupur Rai MD, PhD S ÁNGEL Cedeño, PhD Performed at: [facility] [address] [id number] Dormitory Counselor: Julio Cesar Luke MD, Phone: [phone] 05/16/14 1414: . previously reported as: Amended [...] the workup for venous thrombosis include the S93885B mutation in the factor II (prothrombin) gene, [...] infection or stage of disease. Performed at: [address] [id number] Dormitory Counselor: Bibi Martinez MD, Phone: [phone] 99 No reportable results 100 HBsAg not detected; does not exclude the possibility of exposure to or early acute infections with HBV. 101 CDC (Centers for Disease Control) and the ACCLPP (Advisory Committee on Childhood Lead Poisoning Prevention) have reported adverse health events with pediatric blood lead levels greater than or equal to 5 ug/dL. [facility] Guidelines : Blood lead levels in the range of 5-9 ug/dL have been associated with adverse health effects in children aged six years and younger. Environmental Exposure : WHO Recommendation <20 Occupational Exposure: OSHA Lead Std 40 Detection Limit=1 Performed at: [address] [id number] Dormitory Counselor: Bibi Martinez MD, Phone: [phone] 102 PENDING; TEST PERFORMED ON MONDAYS AND [...] for rectal and pharyngeal specimens. Performed at: [address] [id number] Dormitory Counselor: Bibi Martinez MD, Phone: [phone] 108 COLONY COUNT ! 1,000 - 5,000 CFU/ml Organism 1 ! URETHRAL ABI Procedures Date CPT Code Description Status 12/27/2017 52530 Theraputic Or Diagnostic Injection Completed 12/13/2017 14279 Theraputic Or Diagnostic Injection Completed 06/30/2017 34548 EGD Completed 02/11/2017 89649 EKG-Tracing And Report Completed 02/09/2017 88343 Echocardiogram Complete Completed 02/09/2017 80004 EKG Interpretation And Report Only Completed 04/11/2015 07811 Eye Exam New Patient Comprehensive Completed 08/28/2014 62702 Post- Care Only Completed 07/15/2014 27100 Vaginal Delivery Global Care Completed 07/15/2014 32081 Anesthesia,Neuraxial Labor Completed 07/08/2014 69028 Antepartum 7 Or More Total Office Visit Completed 07/01/2014 36679 Antepartum 7 Or More Total Office Visit Completed 06/25/2014 61555 Antepartum 7 Or More Total Office Visit Completed 06/10/2014 98682 Antepartum 7 Or More Total Office Visit Completed 05/27/2014 65264 Antepartum 7 Or More Total Office Visit Completed 05/02/2014 79834 Antepartum 7 Or More Total Office Visit Completed 04/01/2014 08604 Antepartum 7 Or More Total Office Visit Completed 02/26/2014 02033 Antepartum 7 Or More Total Office Visit Completed 01/24/2014 37052 Antepartum 7 Or More Total Office Visit Completed 12/21/2013 43266 Antepartum 7 Or More Total Office Visit Completed 07/23/2013 96887 xray spine cervical min 4 views Completed Encounters Type Date Location Provider CPT E/M Dx Office Visit 03/24/2018 12:00p Urology Aditya Shields M.D. 99870 N20.0 Office Visit 12/15/2017 1:00p Surgical Office Hunter Funes 98975 R10.9 Kurtis Coulter Office Visit 12/13/2017 9:00a [place] [address] E72.12 R10.9 E55.9 E53.9 E61.1 Office Visit 11/30/2017 3:00p [place] [address] E72.12 D68.61 R10.9 E55.9 Office Visit 11/28/2017 3:45p Surgical Office Hunter Ordoñezlianne, 12023 E72.12 Kurtis R10.11 Office Visit 10/07/2017 10:00[place] [address] E72.12 D68.61 R10.11 Office Visit 06/24/2017 9:00[place] [address] D68.61 E72.12 R10.9 N92.0 Office Visit 06/22/2017 1:30[place] [address] I87.8 R10.11 K76.0 E80.4 Office Visit 02/11/2017 1:00p [place] [address] R55 R94.31 Office Visit 09/17/2015 3:30p Family Medicine Fawn Blackwell M.D. 68907 N91.1 Office Visit 07/11/2015 9:00a Family Medicine Maureen Chou, [facility] [address]196 Z30.09 Z30.018 Z23 Office Visit 05/06/2015 11:30[place] [address] R79.1 Office Visit 04/23/2015 10:00[place] [address] R79.1 Office Visit 04/10/2015 11:00[place] [address] 790.92 723.1 626.4 Office Visit 04/10/2015 9:15a Family Medicine Maureen Chou, 138[address] 626.4 PROPERTY MANAGER Office Visit 09/04/2013 8:45a Orthopaedic Office Cindi Flowers, [address] 719.41 RPAC 723.1 719.41 723.1 Office Visit 07/23/2013 8:30a Orthopaedic Office Cindi Flowers, [facility] [address]60 723.1 719.41 723.1 719.41 Office Visit 06/28/2013 2:30p Orthopaedic Office Cindi Flowers, [address] 719.41 RPAC 719.41 Plan of Care Future Appointment(s):09/25/2018 9:30 am - Aditya Shields M.D. at Ot[facility]5403/31 2:30 pm - Harman Govea MD at GI03/24/2018 - Aditya Shields M.D.N20.0 Calculus of kidneyNew Xrays:KUBUltrasound, Renal & BladderComments:Patient with a 5 mm right kidney stone. The patient I do not believe that her pain was due to the stone. I did offer the patient to have the stone removed if she would like that. At this point we agreed to repeat imaging in 6 months and we' ll rediscuss intervention at that time.
[2018-04-04 07:43] VITALS: BP 123/79
--- NOTE | 2018-04-04 07:59 | UC ---
Skin Complaint HPI - HPI Summary HPI Summary: boil right forearm x 3 day , + pain and swelling, + redness, very tender to touch no fever, no chills - History of Current Complaint Chief Complaint: UCUpperExtremity Time Seen by Provider: 04/04/18 07:46 Stated Complaint: SORE ON RT ARM Hx Obtained From: Patient Hx Last Menstrual Period: just delivered baby on 02/20/17 ?: No Onset/Duration: Gradual Onset, Lasting Days - 3, Still Present Timing: Constant Onset Severity: Moderate Current Severity: Moderate Pain Intensity: 5 Location: Other - right forearm Character: Swelling, Pain, Redness, Raised, Painful Aggravating Factor(s): Touch Alleviating Factor(s): Nothing Associated Signs & Symptoms: Positive: Tenderness. Negative: Fever, Chills, Drainage - Allergy/Home Medications Allergies/Adverse Reactions: Allergies Allergy/AdvReac Type Severity Reaction Status Date / Time latex Allergy Rash And Verified 04/04/18 07:44 Itching nickel Allergy Severe Rash Uncoded 04/04/18 07:44 CHLORINE Allergy Rash Uncoded 04/04/18 07:44 Review of Systems Constitutional: Negative Eyes: Negative ENT: Negative Respiratory: Negative Is Patient Immunocompromised?: No All Other Systems Reviewed And Are Negative: Yes PMH/Surg Hx/FS Hx/Imm Hx Previously Healthy: Yes - Surgical History Surgical History: None Surgery Procedure, Year, and Place: None - Family History Known Family History: Positive: None Negative: Diabetes, Other - NEG: gallbladder disease - Social History Alcohol Use: None Substance Use Type: None Smoking Status (MU): Never Smoked Tobacco - Immunization History Most Recent Influenza Vaccination: 06/2015 Most Recent Tetanus Shot: unknown Vaccination Up to Date: Yes Physical Exam Triage Information Reviewed: Yes Appearance: Well-Appearing, No Pain Distress, Well-Nourished Vital Signs: Initial Vital Signs Temp 97.1 F 04/04/18 07:39 Pulse 81 04/04/18 07:39 Resp 14 04/04/18 07:39 BP 123/79 04/04/18 07:39 Pulse Ox 99 04/04/18 07:39 Vital Signs Reviewed: Yes Eyes: Positive: Conjunctiva Clear ENT Exam: Normal Neck exam: Normal Respiratory: Positive: Chest non-tender, Lungs clear, Normal breath sounds Cardiovascular: Positive: RRR, No Murmur, Pulses Normal Skin: Positive: Other - small abscess right forearm , + erythema, tender , swelling, no need for I&D at this time Course/Dx - Diagnoses Provider Diagnoses: abscess right foream Discharge - Sign-Out/Discharge Documenting (check all that apply): Patient Departure - Discharge Plan Condition: Stable Disposition: HOME Prescriptions: Sulfamethox/Trimethoprim DS* [Bactrim DS 800/160 TAB*] 1 tab PO BID #20 tab Patient Education Materials: Abscess (ED) Referrals: Candy Resendiz MD [Primary Care Provider] - 7 Days Additional Instructions: use moist heat compresses for 15 min 4 x per day Bactrim DS x 10 days - Billing Disposition and Condition Condition: STABLE Disposition: Home
== END 2018-04-04 08:02 | disposition home or self-care (01) ==
LOC: UCCORT 07:19
DX: L02.413 Cutaneous abscess of right upper limb (principal)
CPT/HCPCS: 99212; G0463

== ENCOUNTER 2018-05-03 09:07 | Emergency (ER) | payer OTHER ==
--- OUTSIDE RECORDS SUMMARY | 2018-05-03 09:32 | XMS REPORT ---
:1995 External Reference #:[id number] Author Organization [facility] 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/2017 Abdominal pain [...] Date Family Member(s) Problem(s) Comments General Hypertension Father Kidney Stones Father lung issues Father Hypertension Mother Uterine Fibroids Mother Cyst Of Ovary Mother premature ventricular contractions Children 1 living age 9 months Siblings 3 age 24 living, age 23 living, age 15 living Paternal Grandfather Gout Paternal Grandfather Hypertension Paternal Grandfather Thyroid Disease Paternal Grandmother Thyroid Disease Paternal Grandmother Hypertension Maternal Grandfather Diabetes Maternal Grandfather Heart Disease Maternal Grandfather Kidney Disease Maternal Grandmother due to Cancer () Maternal Grandmother due to DC () Maternal Grandmother due to End stage renal () disease Maternal Grandmother due to at age 64 () Social History Type Date Description Comments Marital [...] on average 12oz of soda per day General Hx Text Pt had flu vac 2016 and Pap 2017 Allergies, Adverse Reactions, Alerts Date Description Reaction Status Severity Comments 04/10/2015 Latex active 04/10/2015 Nickel active 04/10/2015 Chlorine active 06/28/2013 Metals inactive Medications Medication Date Status Form Strength Qnty SIG Indications Ordering Provider Wagner-3 CF 04/14 Active Capsules 1000mg 60cap 1 cap by G47.00 Candy /2017 s mouth MD Martín, twice a PHD day with meals D3 Maximum 04/14 Active Capsules 5000Unit 90cap 1 cap by G47.00 Candy Strength s mouth MD Martín, every PHD day with food B12 Fast 04/14 Active Tablets 5000mcg 90tab 1 tab by G47.00 Candy Dissolve Dispers s ze Resendiz MD, every PHD day Nac 600 04/14 Active Capsules 600mg 120ca 2 cap by G47.00 Candy /2018 ps mouth MD Martín, twice a PHD day Trazodone HCL 04/14 Active Tablets 50mg 60tab 1-2 tab G47.00 s by mouth MD Martín, sleep PHD Nexplanon Active Implant 68mg to be Unknown /0000 removed in 2020 Ergocalciferol 12/13 Hx Capsules [id number] 6caps 1 cap po Lita /2018 qweek Boufal, DO - 03/24 Ergocalciferol 11/14 Hx Capsules [id number] 6caps 1 cap po Lita qweek Boufal, DO - 11/30 Bactrim DS 11/14 Hx Tablets 800-160mg 14tab 1 tabl Lita /2018 s by mouth DO Malcolm - twice a No Active 10/07 Hx Unknown Medications /2017 - 10/07 No Active 09/17 Hx Unknown Medications /2014 - 02/11 No Active 07/11 Hx Unknown Medications /2014 - 07/11 Ortho Evra 07/11 Hx Patches 150-35mcg 3unit apply Z30.[address] [facility] Weekly /24HR s one [place] - patch to 09/17 hairless skin of the upper arms, abdomen or lower back x 3 weeks leave off 1 week - repeat Levonorgestrel 07/11 Hx Tablets 1.5mg 1tabs take on Z30.018 in event [place] - of 09/17 breakage Iron 05/06 Hx Tablets 325(65Fe) 30tab 1 tabl Lita /2015 mg s by mouth DO Malcolm - M,W,F 07/11 No Active 04/10 Hx Unknown Medications /2014 - 04/10 Norethindrone 04/10 Hx Tablets 1-20mg-mc 1pack one po 626.4 [place] Acetate/Ethinyl /2014 g(24) qd [place] Estradiol/Ferrou - s Fumarate 07/11 Depo-Provera 10/15 Hx Suspension 150mg/ml 1unit every 3 Charlie Burns s russ Kerns MD - 04/10 Cyclobenzaprine 07/24 Hx Tablets 5mg 30tab 1 po in [facility] s the Kathi Corral M.D., FACS 04/10 muscle spasms Cyclobenzaprine 07/23 Hx Tablets 7.5mg 20tab [address] [facility] s the Kathi Corral M.D., [facility] 07/24 prior bed Naproxen 06/28 Hx Tablets 375mg 60tab 1 po bid s with Kathi Corral M.D., FACS 04/10 [...] Strength /0000 by mouth - every 4 needed Vitamin D 00 Hx Capsules 07144Larr take 1 Unknown (Ergocalciferol) /0000 capsule - by mouth 12/16 week Vitamin B Hx Injection 100 one shot Unknown Complex 100 /0000 once a - month 03/24 Cephalexin Hx Capsules 500mg take 1 Unknown /0000 capsule - every 12 Hydrocodone-Acet Hx Tablets 5-325mg prn Unknown aminophen [...] Influenza Vaccine (Fluzone) Age 3 And Older [id number] Given 06/10/2014 Tdap injection 37472 Given 06/10/2014 flu vaccination Vital Signs Date Vital Result Comment 04/14/2018 BP Systolic 121 mmHg BP Diastolic 80 mmHg Body Temperature 98.4 F Heart Rate 70 /min Respiratory Rate 18 /min Weight 171.25 lb O2 % BldC Oximetry 96 % 03/31/2018 BP Systolic Sitting Right Arm 110 mmHg BP Diastolic Sitting Right Arm 77 mmHg Heart Rate 90 /min Respiratory Rate 16 /min Height 63 inches 5'3" Weight 171.00 lb BMI (Body Mass Index) 30.3 kg/m2 BSA (Body Surface Area) 1.81 m2 [place] body weight in kilograms 52 03/24/2018 BP [...] kg/m2 BSA (Body Surface Area) 1.72 m2 [place] body weight in kilograms 52 02/11/2017 BP Systolic Sitting Right Arm 123 mmHg BP Diastolic Sitting Right Arm 73 mmHg Heart Rate 63 /min Respiratory Rate 18 /min Height 63 inches 5'3" Weight 177.00 lb BMI (Body Mass Index) 31.4 kg/m2 BSA (Body Surface Area) 1.84 m2 [place] body weight in kilograms 52 09/17/2015 BP Systolic Sitting Left Arm 128 mmHg BP Diastolic Sitting Left Arm 74 mmHg Heart Rate 78 /min Respiratory Rate 19 /min Height 63 inches 5'3" Weight 178.00 lb BMI (Body Mass Index) 31.5 kg/m2 BSA (Body Surface Area) 1.84 m2 Last Menstrual Period [id number] 07/11/2015 BP Systolic 118 mmHg BP Diastolic 72 mmHg Height 64 inches 5'4" Weight 175.00 lb BMI (Body Mass Index) 30.0 kg/m2 BSA (Body Surface Area) 1.85 m2 Last Menstrual Period [id number] 05/06/2015 BP Systolic Sitting Left Arm 127 [...] Test Date Test Result H/L Range Note Laboratory test finding 03/31/2018 C1 Esterase Inhibitor 96 %meanno . 1 , 2 Function C1 Esterase Inhibitor 30 mg/dL 21-39 1 Complement C4, Serum 20 mg/dL 14-44 1 Iron-Tibc-%Sat 12/27/2017 Serum Iron 79 g/dL 50-170 3 Total Iron Binding Capacity 347 g/dL 250-450 3 Transferrin %Saturation 23 % 12-57 3 Laboratory test finding 12/27/2017 Ferritin 216 ng/mL 8-252 3 Vitamin B12 And Folate 12/27/2017 Vitamin B12 505 pg/mL 193-986 3 Folic Acid 18.8 ng/mL High 3.1-17.5 3 Laboratory test 12/27/2017 Vitamin D,25-Hydroxy 21.9 ng/mL Low 30.0-100.0 3, 4 finding CBS W/Automated Diff 12/27/2017 White Blood Count 5.6 K/uL 3.1-10.7 3 Red Blood Count 5.08 M/uL 3.90-5.40 3 Hemoglobin 13.6 gm/dL 11.6-15.8 3 Hematocrit 39.8 % 36.0-46.1 3 Mean Cell Volume 78.3 fl Low 80.9-99.0 3 Mean Corpuscular HGB 26.8 pg 25.9-32.7 3 Mean Corpuscular HGB Conc 34.2 g/dL 30.8-34.3 3 Platelet Count 249 K/uL 155-360 3 Red Cell Distri Width SD 37.2 fl 3-47 3 Red Cell Distri Width %CV 13.3 % 11.7-14.4 3 Mean Platelet Volume 11.1 fL 8.9-12.4 3 Neut% 59.1 % 40.4-72.8 3 Lymph % 32.2 % 20.0-42.0 3 [place] % 6.4 % 4.3-13.2 3 Eo% 1.2 % 0.0-6.6 3 Bas% 1.1 % 0.0-1.1 3 Neut# 3.32 K/uL 1.8-7.0 3 Lymph # 1.81 K/uL 1.0-4.0 3 [place] # 0.36 K/uL 0.3-0.9 3 Eos # 0.07 K/uL 0.0-0.5 3 Baso # 0.06 K/uL 0.0-0.1 3 Comprehensive Metabolic Panel 12/27/2017 Glucose 102 mg/dL 74-106 3 BUN 17 mg/dL 7-18 3 Creatinine 0.6 mg/dL 0.6-1.3 3 Glom Filtration Rate, Estimate >60 mL/min >60 3 If >60 mL/min >60 3, 5 BUN/Creat 28.3 ratio 3 Sodium 140 mmol/L 136-145 3 Potassium 4.0 mmol/L 3.5-5.1 3 Chloride 107 mmol/L 98-107 3 Carbon Dioxide 25 mmol/L 21-32 3 Anion Gap 8 mEq/L 8-16 3 Calcium 8.9 mg/dL 8.5-10.1 3 Total Protein 7.9 g/dL 6.4-8.2 3 Albumin 4.1 g/dL 3.4-5.0 3 Globulin 3.8 g/dL 1.9-4.3 3 Alb/Glob 1.1 ratio 3 Bilirubin,Total 1.5 mg/dL High 0.2-1.0 3 Sgot/Ast 14 U/L Low 15-37 3, 6 SGPT/Alt 20 U/L 12-78 3 Alkaline Phosphatase 82 U/L 45-117 3 Xray 12/12/2017 Gallbladder (Disida) W/Ef still wnl Comprehensive Metabolic 12/01/2017 Glucose 96 mg/dL 74-106 3 Panel BUN 16 mg/dL 7-18 3 Creatinine 0.7 mg/dL 0.6-1.3 3 Glom Filtration Rate, Estimate >60 mL/min >60 3 If >60 mL/min >60 3, 7 BUN/Creat 22.8 ratio 3 Sodium 138 mmol/L 136-145 3 Potassium 3.9 mmol/L 3.5-5.1 3 Chloride 108 mmol/L High 98-107 3 Carbon Dioxide 22 mmol/L 21-32 3 Anion Gap 8 mEq/L 8-16 3 Calcium 8.9 mg/dL 8.5-10.1 3 Total Protein 8.2 g/dL 6.4-8.2 3 Albumin 4.3 g/dL 3.4-5.0 3 Globulin 3.9 g/dL 1.9-4.3 3 Alb/Glob 1.1 ratio 3 Bilirubin,Total 2.1 mg/dL High 0.2-1.0 3 Sgot/Ast 16 U/L 15-37 3 SGPT/Alt 27 U/L 12-78 3 Alkaline Phosphatase 78 U/L 45-117 3 CBS W/Automated Diff 12/01/2017 White Blood Count 5.3 K/uL 3.1-10.7 3 Red Blood Count 5.24 M/uL 3.90-5.40 3 Hemoglobin 14.0 gm/dL 11.6-15.8 3 Hematocrit 40.8 % 36.0-46.1 3 Mean Cell Volume 77.9 fl Low 80.9-99.0 3 Mean Corpuscular HGB 26.7 pg 25.9-32.7 3 Mean Corpuscular HGB Conc 34.3 g/dL 30.8-34.3 3 Platelet Count 264 K/uL 155-360 3 Red Cell Distri Width SD 36.8 fl 3-47 3 Red Cell Distri Width %CV 13.0 % 11.7-14.4 3 Mean Platelet Volume 10.9 fL 8.9-12.4 3 Neut% 54.1 % 40.4-72.8 3 Lymph % 35.7 % 20.0-42.0 3 Mchenry % 7.2 % 4.3-13.2 3 Eo% 1.9 % 0.0-6.6 3 Bas% 1.1 % 0.0-1.1 3 Neut# 2.84 K/uL 1.8-7.0 3 Lymph # 1.88 K/uL 1.0-4.0 3 [place] # 0.38 K/uL 0.3-0.9 3 Eos # 0.10 K/uL 0.0-0.5 3 Baso # 0.06 K/uL 0.0-0.1 3 Laboratory test 12/01/2017 Vitamin D,25-Hydroxy 19.2 ng/mL Low 30.0-100.0 3, 8 finding Vitamin B12 And Folate 12/01/2017 Vitamin B12 383 pg/mL 193-986 3 Folic Acid 18.2 ng/mL High 3.1-17.5 3 Laboratory test finding 12/01/2017 Ferritin 40 ng/mL 8-252 3 Iron-Tibc-%Sat 12/01/2017 Serum Iron 72 g/dL 50-170 3 Total Iron Binding Capacity 403 g/dL 250-450 3 Transferrin %Saturation 18 % 12-57 3 Vitamin B12 And Folate 10/07/2017 Vitamin B12 424 pg/mL 193-986 3 Folic Acid > 20.0 ng/mL High 3.1-17.5 3 Laboratory test 10/07/2017 Vitamin D,25-Hydroxy 18.2 ng/mL Low 30.0-100.0 3, 9 finding CBS W/Automated Diff 10/07/2017 White Blood Count 5.0 K/uL 3.1-10.7 3 Red Blood Count 5.19 M/uL 3.90-5.40 3 Hemoglobin 13.6 gm/dL 11.6-15.8 3 Hematocrit 40.8 % 36.0-46.1 3 Mean Cell Volume 78.6 fl Low 80.9-99.0 3 Mean Corpuscular HGB 26.2 pg 25.9-32.7 3 Mean Corpuscular HGB Conc 33.3 g/dL 30.8-34.3 3 Platelet Count 324 K/uL 155-360 3 Red Cell Distri Width SD 37.4 fl 3-47 3 Red Cell Distri Width %CV 13.2 % 11.7-14.4 3 Mean Platelet Volume 11.5 fL 8.9-12.4 3 Neut% 49.8 % 40.4-72.8 3 Lymph % 38.3 % 20.0-42.0 3 [place] % 7.5 % 4.3-13.2 3 Eo% 2.4 % 0.0-6.6 3 Bas% 2.0 % High 0.0-1.1 3 Neut# 2.51 K/uL 1.8-7.0 3 Lymph # 1.93 K/uL 1.0-4.0 3 [place] # 0.38 K/uL 0.3-0.9 3 Eos # 0.12 K/uL 0.0-0.5 3 Baso # 0.10 K/uL 0.0-0.1 3 Comprehensive Metabolic Panel 10/07/2017 Glucose 81 mg/dL 74-106 3 BUN 14 mg/dL 7-18 3 Creatinine 0.6 mg/dL 0.6-1.3 3 Glom Filtration Rate, Estimate >60 mL/min >60 3 If >60 mL/min >60 3, 10 BUN/Creat 23.3 ratio 3 Sodium 139 mmol/L 136-145 3 Potassium 3.9 mmol/L 3.5-5.1 3 Chloride 105 mmol/L 98-107 3 Carbon Dioxide 27 mmol/L 21-32 3 Anion Gap 7 mEq/L Low 8-16 3 Calcium 9.5 mg/dL 8.5-10.1 3 Total Protein 8.5 g/dL High 6.4-8.2 3 Albumin 4.4 g/dL 3.4-5.0 3 Globulin 4.1 g/dL 1.9-4.3 3 Alb/Glob 1.1 ratio 3 Bilirubin,Total 2.5 mg/dL High 0.2-1.0 3 Sgot/Ast 17 U/L 15-37 3 SGPT/Alt 27 U/L 12-78 3 Alkaline Phosphatase 80 U/L 45-117 3 Laboratory test finding 10/07/2017 Ferritin 42 ng/mL 8-252 3 Iron-Tibc-%Sat 10/07/2017 Serum Iron 81 g/dL 50-170 3 Total Iron Binding Capacity 420 g/dL 250-450 3 Transferrin %Saturation 19 % 12-57 3 Laboratory test finding 10/07/2017 Abo/RH Type O POS 3 Laboratory test finding 06/30/2017 Urine HCG NEGATIVE Negative 11, 12 (Qualitative) Porphobilinogen,QN,24HR 06/30/2017 Porphobilinogen,QN,Ur 0.6 mg/L 0.0- 2.0 13 Urine ine Porphobilinogen, 24HR (U) 0.6 mg/24hr 0.0-1.5 13, [...] III, 24 Hour 8 ug/24hr 0-74 13 Ala Delta, 24 Hour Urine 06/30/2017 Delta Ala 2.2 mg/L Undefined 13 Delta Ala 2.2 mg/24hr 0.5-5.1 13, 16 Homocyst(E)Ine, P/S 06/24/2017 Homocyst(e)ine, P/S 8.7 umol/L 0.0-15.0 17, 18 Laboratory test 06/24/2017 PBG Deaminase, 3.25 mU/gHb 2.10-4.30 17, 19 finding Erythrocyte Porphyrins,Serum,Total < 0.1 g/dL 0.0-1.0 17, 20 CBS W/Automated Diff 06/24/2017 White Blood Count 5.0 K/uL 3.1-10.7 17 Red Blood Count 4.62 M/uL 3.90-5.40 17 Hemoglobin 12.3 gm/dL 11.6-15.8 17 Hematocrit 36.2 % 36.0-46.1 17 Mean Cell Volume 78.4 fl Low 80.9-99.0 17 Mean Corpuscular HGB 26.6 pg 25.9-32.7 17 Mean Corpuscular HGB Conc 34.0 g/dL 30.8-34.3 17 Platelet Count 275 K/uL 150-400 17 Red Cell Distri Width SD 37.6 fl 3-47 17 Red Cell Distri Width %CV 13.4 % 11.7-14.4 17 Mean Platelet Volume 11.6 fL 8.9-12.4 17 Neut% 58.8 % 40.4-72.8 17 Lymph % 31.7 % 20.0-42.0 17 Mchenry % 6.9 % 4.3-13.2 17 Eo% 1.4 % 0.0-6.6 17 Bas% 1.2 % High 0.0-1.1 17 Neut# 2.96 K/uL 1.8-7.0 17 Lymph # 1.60 K/uL 1.0-4.0 17 Mchenry # 0.35 K/uL 0.3-0.9 17 Eos # 0.07 K/uL 0.0-0.5 17 Baso # 0.06 K/uL 0.0-0.1 17 Laboratory test finding 06/24/2017 Von Willebrand Factor Activity 51 % 50 -200 17 VWF Antigen 91 % 50-200 17, 21 Factor VIII Activity 80 % 57-163 17, 22 Factor VIII Antigen 124 % . 17, 23 CMP Panel (14 Test) 06/24/2017 Glucose 93 mg/dL 74-106 24 BUN 21 mg/dL High 7-18 24 Creatinine 0.7 mg/dL 0.6-1.3 24 Glom Filtration Rate, Estimate >60 mL/min >60 24 If >60 mL/min >60 24, 25 BUN/Creat 30.0 ratio 24 Sodium 141 mmol/L 136-145 24 Potassium 3.8 mmol/L 3.5-5.1 24 Chloride 110 mmol/L High 98-107 24 Carbon Dioxide 20 mmol/L Low 21-32 24 Anion Gap 11 mEq/L 8-16 24 Calcium 9.0 mg/dL 8.5-10.1 24 Total Protein 7.7 g/dL 6.4-8.2 24 Albumin 3.9 g/dL 3.4-5.0 24 Globulin 3.8 g/dL 1.9-4.3 24 Alb/Glob 1.0 ratio 24 Bilirubin,Total 1.8 mg/dL High 0.2-1.0 24 Sgot/Ast 14 U/L Low 15-37 24, 26 SGPT/Alt 26 U/L 12-78 24 Alkaline Phosphatase 71 U/L 45-117 24 Complement C4, Serum 06/24/2017 Complement C4, Serum 29 mg/dL 14-44 24 Height 63 24 Weight 151 24 Thomas Fibrosure 06/24/2017 Thomas Fibrosis Score 0.08 0.00-0.21 24 Thomas Fibrosis Stage (SEE NOTE) 24, 27 Thomas Steatosis Score 0.33 High 0.00-0.30 24 Thomas Steatosis Grade (SEE NOTE) 24, 28 Thomas Score 0.25 0.25 24 Thomas Grade (SEE NOTE) 24, 29 Height 63 Inches . 24 Weight Measured 151 LBS . 24 Hvwrg-4-Fgzsfnxirukwj 137 mg/dL 110-276 24 Haptoglobin 204 mg/dL High 34-200 24 Apolipoprotein A-1 117 mg/dL 116-209 24 Bilirubin,Total 1.5 mg/dL High 0.0-1.2 24 GGT 15 IU/L 0-60 24 Alt (SGPT) 26 IU/L 0-40 24 Alt (Sgot) P5P 21 IU/L 0-40 24 Cholesterol,Total 125 mg/dL 100-199 24 Glucose, Serum 97 mg/dL 65-99 24 Triglycerides 83 mg/dL 0-149 24 Thomas Interpretations: (SEE NOTE) 24, 30 Fibrosis Scoring (SEE NOTE) 24, 31 Steatosis Grading (SEE NOTE) 24, 32 Thomas Scoring (SEE NOTE) 24, 33 Thomas Limitations (SEE NOTE) 24, 34 Thomas Comment . 24, 35 Thomas Comment 2 (SEE NOTE) 24, 36 Height 63 24 Weight 151 24 C1 Esterase Inhibitor 06/24/2017 C1 Esterase Inhibitor 96 %meanno . 24, 37 Function Function Height 63 24 Weight 151 24 C1 Esterase Inhibitor 06/24/2017 C1 Esterase Inhibitor 33 mg/dL 21-39 24 Height 63 24 Weight 151 24 Laboratory test 06/17/2017 Mitochondrial (M2) 3.5 units 0.0-20.0 38, 39 finding Antibodies Actin (Smooth Muscle) Antibody 8 units 0-19 38, 40 Hepatitis A AB, Total Negative Negative 38 Hep B Core AB Total Negative Negative 38, 41 Celiac Disease Comp AB Profile 06/17/2017 Immunoglobulin A 141 mg/dL 87- 352 38 Antigliadin Abs, IgG 1 units 0-19 38, 42 Antigliadin Abs, IgA 4 units 0-19 38, 43 Endomysial IgA Antibody Negative Negative 38 t-Transglutaminase IgA <2 U/mL 0-3 38, 44 t-Transglutaminase IgG <2 U/mL 0-5 38, 45 Laboratory test finding 06/17/2017 Antinuclear Antibodies, Negative . 38 , 46 Ifa Protein Electro.,S 06/17/2017 Protein,Total,Serum 6.9 g/dL 6.0-8.5 38 Albumin 4.2 g/dL 2.9-4.4 38 Vbpjd-5-Rxmcijjx 0.1 g/dL 0.0-0.4 38 Mjjrm-6-Autewgbe 0.6 g/dL 0.4-1.0 38 Beta Globulin 0.9 g/dL 0.7-1.3 38 Gamma Globulin 1.0 g/dL 0.4-1.8 38 M-David Not Observed g/dL Not Observed 38 Globulin, Total 2.7 g/dL 2.2-3.9 38 A/G Ratio 1.6 0.7-1.7 38 Please Note: (SEE NOTE) 38, 47 P E Interpretation, Serum (SEE NOTE) 38, 48 Laboratory test finding 06/17/2017 Bilirubin,Total 3.0 mg/dL High 0.2-1.0 38 Bilirubin,Direct 0.2 mg/dL 0.0-0.2 38 Gamma Glutamyl Transpeptidase 20 U/L 5-85 38 Thyroid Stim Hormone 1.52 uIU/mL 0.30-4.20 38 Free T4 1.01 ng/dL 0.76-1.46 38 Hepatitis B Surface Antigen Negative Negative 38 Hepatitis B Surface Antibody Non Reactive . 38, 49 Hepatitis B Core Antibody-IgM Negative Negative 38 Hepatitis C Antibody < 0.1 s/corat 0.0-0.9 38, 50 Mjgjq-5-Tvlohfwwrtm,Serum 96 mg/dL 90-200 38 Ceruloplasmin 24.8 mg/dL 19.0-39.0 38 Nucleotidase,5 5 IU/L 0-10 38 Hepatitis Panel Acute 06/04/2017 Hepatitis A AB Igm <pending> Hepatitis B Core AB Igm <pending> Hepatitis B Surface Antigen <pending> Hepatitis C Virus <pending> Hemoglobin/Hematocrit 02/21/2017 Hemoglobin 10.1 gm/dL Low 11.6-15.8 51 Hematocrit 29.3 % Low 36.0-46.1 51 Comprehensive Metabolic Panel 02/21/2017 Glucose 82 mg/dL 74-106 51 BUN 4 mg/dL Low 7-18 51 Creatinine 0.5 mg/dL Low 0.6-1.3 51 Glom Filtration Rate, Estimate >60 mL/min >60 51 If >60 mL/min >60 51, 52 BUN/Creat 8.0 ratio 51 Sodium 143 mmol/L 136-145 51 Potassium 3.4 mmol/L Low 3.5-5.1 51 Chloride 108 mmol/L High 98-107 51 Carbon Dioxide 26 mmol/L 21-32 51 Anion Gap 9 mEq/L 8-16 51 Calcium 8.3 mg/dL Low 8.5-10.1 51 Total Protein 5.4 g/dL Low 6.4-8.2 51 Albumin 2.0 g/dL Low 3.4-5.0 51 Globulin 3.4 g/dL 1.9-4.3 51 Alb/Glob 0.6 ratio 51 Bilirubin,Total 0.8 mg/dL 0.2-1.0 51 Sgot/Ast 38 U/L High 15-37 51 SGPT/Alt 26 U/L 12-78 51 Alkaline Phosphatase 237 U/L High 45-117 51 CBC 02/20/2017 White Blood Count 9.1 K/uL 3.1-10.7 51 Red Blood Count 3.49 M/uL Low 3.90-5.40 51 Hemoglobin 9.6 gm/dL Low 11.6-15.8 51 Hematocrit 27.6 % Low 36.0-46.1 51 Mean Cell Volume 79.1 fl Low 80.9-99.0 51 Mean Corpuscular HGB 27.5 pg 25.9-32.7 51 Mean Corpuscular HGB Conc 34.8 g/dL High 30.8-34.3 51 Platelet Count 187 K/uL 150-400 51 Red Cell Distri Width %CV 13.5 % 11.7-14.4 51 Mean Platelet Volume 10.6 fL 8.9-12.4 51 Comprehensive Metabolic Panel 02/20/2017 Glucose 73 mg/dL Low 74-106 51 BUN 3 mg/dL Low 7-18 51 Creatinine 0.5 mg/dL Low 0.6-1.3 51 Glom Filtration Rate, Estimate >60 mL/min >60 51 If >60 mL/min >60 51, 53 BUN/Creat 6.0 ratio 51 Sodium 142 mmol/L 136-145 51 Potassium 2.8 mmol/L Low 3.5-5.1 51 Chloride 110 mmol/L High 98-107 51 Carbon Dioxide 24 mmol/L 21-32 51 Anion Gap 8 mEq/L 8-16 51 Calcium 8.0 mg/dL Low 8.5-10.1 51 Total Protein 4.7 g/dL Low 6.4-8.2 51 Albumin 1.8 g/dL Low 3.4-5.0 51 Globulin 2.9 g/dL 1.9-4.3 51 Alb/Glob 0.6 ratio 51 Bilirubin,Total 1.4 mg/dL High 0.2-1.0 51 Sgot/Ast 29 U/L 15-37 51 SGPT/Alt 23 U/L 12-78 51 Alkaline Phosphatase 218 U/L High 45-117 51 Laboratory test finding 02/20/2017 Uric Acid 4.3 mg/dL 2.6-6.0 51, 54 LDH 200 U/L 84-246 51, 55 Ua Routine 02/20/2017 Urine Color YELLOW Yellow 51 Urine Clarity CLEAR Clear 51 Urine Glucose - Dipstick NEGATIVE mg/dL Negative 51 Urine Bilirubin - Dipstick NEGATIVE Negative 51 Urine Ketone NEGATIVE mg/dL Negative 51 Urine Specific [place] <=1.005 Low 1.010-1.030 51 Urine Blood MODERATE Negative 51 Urine PH 6.5 6.5-7.5 51 Urine Protein - Dipstick NEGATIVE mg/dL Negative 51 Urine Urobilinogen - Dipstick 0.2 E.U./dL 0.2-1.0 51 Urine Nitrite - Dipstick NEGATIVE Negative 51 Urine Leuk Esterase NEGATIVE Negative 51 Urine RBC 5-10 rbc/hpf High 0-2 51 Urine WBC NONE SEEN wbc/hpf 0-7 51 Urine Epithelial Cells NONE SEEN /lpf None Seen 51 Source: URINE, STRAIGHT <SEE NOTE> 51, 56 CBC 02/18/2017 White Blood Count 7.3 K/uL 3.1-10.7 51 Red Blood Count 4.13 M/uL 3.90-5.40 51 Hemoglobin 11.4 gm/dL Low 11.6-15.8 51 Hematocrit 32.2 % Low 36.0-46.1 51 Mean Cell Volume 78.0 fl Low 80.9-99.0 51 Mean Corpuscular HGB 27.6 pg 25.9-32.7 51 Mean Corpuscular HGB Conc 35.4 g/dL High 30.8-34.3 51 Platelet Count 234 K/uL 150-400 51 Red Cell Distri Width %CV 13.6 % 11.7-14.4 51 Mean Platelet Volume 10.8 fL 8.9-12.4 51 Type And Screen 02/18/2017 Patient Blood Type O POS 51 Antibody Screen Negative Negative 51 Laboratory test 02/18/2017 Treponema Antibody Negative 51, 57 finding [place] Urine Culture 11/28/2016 Urine Culture NO GROWTH: FINAL 58, 59 <SEE NOTE> Drugs Of Abuse-Urine 11/28/2016 Amphetamines (Urine) Negative 58 Screen 7 Barbiturates (Urine) Negative 58 Benzodiazepines (Urine) Negative 58 Cannabinoids (Urine) Negative 58 Cocaine Metabolite (Urine) Negative 58 Methadone (Urine) Negative 58 Opiates (Urine) Negative 58 Urine Cutoffs * 58, 60 Ua Routine 11/28/2016 Urine Color YELLOW Yellow 58 Urine Clarity CLEAR Clear 58 Urine Glucose - Dipstick NEGATIVE mg/dL Negative 58 Urine Bilirubin - Dipstick NEGATIVE Negative 58 Urine Ketone NEGATIVE mg/dL Negative 58 Urine Specific [place] 1.020 1.010-1.030 58 Urine Blood SMALL Negative 58 Urine PH 7.0 6.5-7.5 58 Urine Protein - Dipstick NEGATIVE mg/dL Negative 58 Urine Urobilinogen - Dipstick 0.2 E.U./dL 0.2-1.0 58 Urine Nitrite - Dipstick NEGATIVE Negative 58 Urine Leuk Esterase SMALL Negative 58 Urine RBC 2-5 rbc/hpf 0-2 58 Urine WBC 0-2 wbc/hpf 0-7 58 Urine Epithelial Cells FEW /lpf None Seen 58 Urine Bacteria FEW None Seen 58 Source: URINE, CLEAN CAT <SEE NOTE> 58, 61 Aot Request 11/28/2016 Aot Request Test(s) added 58, 62 Tests to be added: UDOA 58 CBC 11/28/2016 White Blood Count 8.2 K/uL 3.1-10.7 58 Red Blood Count 4.43 M/uL 3.90-5.40 58 Hemoglobin 12.2 gm/dL 11.6-15.8 58 Hematocrit 36.1 % 36.0-46.1 58 Mean Cell Volume 81.5 fl 80.9-99.0 58 Mean Corpuscular HGB 27.5 pg 25.9-32.7 58 Mean Corpuscular HGB Conc 33.8 g/dL 30.8-34.3 58 Platelet Count 228 K/uL 150-400 58 Red Cell Distri Width %CV 13.7 % 11.7-14.4 58 Mean Platelet Volume 11.3 fL 8.9-12.4 58 Laboratory test finding 09/17/2015 HCG, Quant < 1.0 mIU/mL 63 CBS W/Automated Diff 04/23/2015 White Blood Count [...] 1.0-7.0 Lymph # 1.75 K/uL Low 1.8-7.0 Mchenry # 0.31 K/uL 0.3-0.9 Eos # 0.04 K/uL 0.0-0.5 Baso # 0.09 K/uL 0.0-0.1 Laboratory test finding 04/23/2015 Methylmalonic Acid (S) 140 nmol/L 0- 378 64 Homocyst(E)Ine, Plasma 7.2 umol/L 0.0-15.0 65 Iron-Tibc-%Sat 04/23/2015 Serum Iron 93 g/dL 50-170 [...] >60 mL/min >60 If >60 mL/min >60 66 BUN/Creat 22.8 ratio Sodium 136 mmol/L 136-145 [...] 04/23/2015 Factor II, Dna Analysis See Note 67 Comment See Note 68 Methylenetetrahydrofolate Redu 04/23/2015 MTHFR,Dna Analysis See Note 69 Additional Information See Note 70 References See Note 71 Differential-WBC Confirm 04/23/2015 Total Cells Counted 100 #CELLS Band% 1 % 0-8 Neutrophils% 49 % 28-68 Lymph% 45 % 17-56 Monocyte% 5 % 0-10 Platelet Estimate NORMAL Microcytosis 1+ Laboratory test finding 04/10/2015 Urine Culture See Note 72 Affirm 04/10/2015 Trichomonas vaginalis Negative [Negative] Gardnerella vaginalis Negative [Negative] Destiny species Negative [Negative] Chlamydia/GC Ariella 04/10/2015 Chlamydia Trachomatis, Ariella Negative Negative Neisseria Gonorrhoeae, Ariella Negative Negative Please note: See Note 73 Antithrombin III Panel 04/08/2015 Antithrombin III Activity 120 % 75-135 Antithrombin III Antigen 111 % 75-130 Lupus Anticoagulant Reflex 04/08/2015 PTT-LA 38.3 sec 0.0-50.0 DRVVT 36.9 sec 0.0-55.1 Note: Comment: . 74 Laboratory test finding 04/08/2015 Protein C,Functional 132 % 74-151 75 Protein S,Functional 91 % 60-145 76 LC Miscellaneous Test Request See Note 77 Anticardiolipin AB Iga/Igg/Igm 04/08/2015 Anticardiolipin Igg 17 GPLU/mL High 0-14 78 Anticardiolipin Igm, Quant < 9 MPLU/mL 0-12 79 Anticardiolipin Iga < 9 APLU/mL 0-11 80 Chlamydia/GC Ariella 10/24/2014 Chlamydia Trachomatis, Ariella Negative Negative Neisseria Gonorrhoeae, Ariella Negative Negative Please note: See Note 81 Genital Culture W/ Gram Stain 10/24/2014 Genital Culture See Note 82 Gram Stain See Note 83 Laboratory test finding 08/28/2014 Antithrombin III Activity 138 % High 75 -135 Antithrombin III Antigen 121 % 75-130 Protein C,Functional 131 % 74-151 Protein S,Functional 81 % 60-145 84 Laboratory test 07/14/2014 Rapid Plasma Reagin Nonreactive 85 finding Nonreactive CBC 07/14/2014 Hematocrit 31.2 % [...] test finding 07/14/2014 Urine Screen See Note 86 Urinalysis With Microscopic 07/14/2014 Urine Bacteria Very [...] Urine RBC 0-2 rbc/hpf 0-7 Urine Specific [place] <=1.005 Low 1.010-1.030 Urine Uric Acid Crystals Few None Seen Urine Urobilinogen - Dipstick 0.2 E.U./dL 0.2-1.0 Urine WBC 0-2 wbc/hpf 0-7 Laboratory test finding 06/10/2014 Vaginal Strep Screen See Note 87 Chlamydia/GC Ariella 06/10/2014 Chlamydia Trachomatis, Ariella Negative Negative Neisseria Gonorrhoeae, Ariella Negative Negative Please note: See Note 88 Laboratory test finding 05/10/2014 Anticardiolipin Igg 9 GPLU/mL 0-14 89 Anticardiolipin Igm, Quant < 9 MPL U/mL 0-12 90 Antithrombin III Activity 155 % High 75-135 Antithrombin III Antigen 111 % 75-130 DRVVT 42.8 sec 0.0-55.1 Note: Comment: . 91 PTT-LA 36.2 sec 0.0-50.0 Protein C,Functional 164 % High 74-151 Protein S,Functional 53 % Low 60-145 92 Factor V Leiden Mutation 05/10/2014 . See Note 93 Factor V Leiden See Note 94 Lupus Anticoagulant Reflex 05/10/2014 DRVVT 42.8 sec 0.0-55.1 Note: Comment: . 95 PTT-LA 36.2 sec 0.0-50.0 Laboratory test finding 05/02/2014 1 HR Glucose,Post Glucola 138 mg/dL - 138 96 1 Hour Urine Glucose See Note % Negative 97 1 Hour Urine Ketone See Note Negative 98 Varicella-Zoster Virus IgG Ab 1069 Immune>165ind 99 Hemoglobin/Hematocrit 05/02/2014 Hematocrit 30.0 % Low 36.0-46.1 [...] - Dipstick Negative mg/dL Negative Urine Specific [place] 1.010 1.010-1.030 Urine Urobilinogen - Dipstick 0.2 E.U./dL 0.2-1.0 Type And Screen 12/21/2013 Antibody Screen Negative Negative Patient Blood Type O Pos Laboratory test finding 12/21/2013 Antibody Detection See Note 100 Bas% 0.3 % 0.0-1.1 Baso # 0.02 K/uL 0.0-0.1 Eo% 1.7 % 0.0-6.6 Eos # 0.13 K/uL 0.0-0.5 Hematocrit 37.4 % 36.0-46.1 Hemoglobin 12.4 gm/dL 11.6-15.8 Hepatitis B Surface Antigen Nonreactive Nonreactive 101 Lead,Blood (Adult) 1 g/dL 0-19 102 Lymph # 1.73 K/uL 0.8-3.4 Lymph % 23.2 % 17.0-46.1 Mean Cell Volume 81.7 fl 80.9-99.0 Mean Corpuscular HGB 27.1 pg 25.9-32.7 Mean Corpuscular HGB Conc 33.2 g/dL 30.8-34.3 Mean Platelet Volume 11.7 fL 8.9-12.4 Mchenry # 0.54 K/uL 0.0-0.6 Mchenry % 7.2 % 4.3-13.2 Neut# 5.03 K/uL 1.0-7.0 Neut% 67.6 % 28.0-68.0 Platelet Count 229 K/uL 155-360 Rapid Plasma Reagin Nonreactive Nonreactive 103 Red Blood Count 4.58 M/uL 3.90-5.40 Red Cell Distri Width %CV 13.3 % 11.7-14.4 Red Cell Distri Width SD 38.4 fl 3-47 Rubella IgG Iu/ml > 500.0 Iu/ml >=10.0 104 Urine Culture See Note 105 White Blood Count 7.5 K/uL 3.1-10.7 Genital Culture W/ Gram Stain 11/20/2013 Genital Culture See Note 106 Gram Stain See Note 107 Chlamydia/GC Ariella 11/20/2013 Chlamydia Trachomatis, Ariella Negative Negative Neisseria Gonorrhoeae, Ariella Negative Negative Please note: See Note 108 Laboratory test finding 11/20/2013 Urine Culture See Note 109 1 R10.11 2 INFCE Result Units: %mean normal Abnormal <41 Equivocal 41 - 67 Normal >67 Performed at: [facility] [address] [id number] Lap[place]: Bibi Martinez MD, Phone: [phone] Performed at: - [facility] [id number] Lapeler: Kyle Morrison MD, Phone: [phone] 3 E72.12 D68.61 4 Vitamin D deficiency has been defined by the [place] [employer] and an Endocrine Society practice guideline as a level of serum 25-OH vitamin D less than 20 ng/mL (1,2). The Endocrine Society went on to further define vitamin D insufficiency as a level between 21 and 29 ng/mL (2). 1. IOM ([place] [employer]). 2010. Dietary reference intakes for calcium and D. Daily [place]: The National Academies Press. 2. David MF, Keith WARREN, Helio HUGHES, et al. Evaluation, treatment, and prevention of vitamin D deficiency: an Endocrine Society clinical practice guideline. JCEM. 2010; 96(7):1911-30. Performed at: - [facility] [address] [id number] Lapeler: Bibi Martinez MD, Phone: [phone] 5 Note: Persistent reduction for 3 months or more in an eGFR <60 mL/min/1.73 m2 defines CKD. Patients with eGFR values >/=60 mL/min/1.73 m2 may also have CKD if evidence of persistent proteinuria is present. The original MDRD equation for estimated GFR is not valid for patients less than 18 years of age. Additional information may be found at www.kdoqi.org. 6 Values below the stated reference ranges of AST and ALT can be seen in normal populations. Clinical correlation is suggested. 7 Note: Persistent reduction for 3 months or more in an eGFR <60 mL/min/1.73 m2 defines CKD. Patients with eGFR values >/=60 mL/min/1.73 m2 may also have CKD if evidence of persistent proteinuria is present. The original MDRD equation for estimated GFR is not valid for patients less than 18 years of age. Additional information may be found at www.kdoqi.org. 8 Vitamin D deficiency has been defined by the [place] [employer] and an Endocrine Society practice guideline as a level of serum 25-OH vitamin D less than 20 ng/mL (1,2). The Endocrine Society went on to further define vitamin D insufficiency as a level between 21 and 29 ng/mL (2). 1. IOM ([place] [employer]). 2010. Dietary reference intakes for calcium and D. Daily [place]: The National Academies Press. 2. Keith Milan Bischoff-Ferrari HA et al. Evaluation, treatment, and prevention of vitamin D deficiency: an Endocrine Society clinical practice guideline. JCEM. 2010; 96(7):1911-30. Performed at: [address] [id number] Lapeler: Bibi Martinez MD, Phone: [phone] 9 Vitamin D deficiency has been defined by the [place] [employer] and an Endocrine Society practice guideline as a level of serum 25-OH vitamin D less than 20 ng/mL (1,2). The Endocrine Society went on to further define vitamin D insufficiency as a level between 21 and 29 ng/mL (2). 1. IOM ([place] [employer]). 2010. Dietary reference intakes for calcium and D. Daily [place]: The National Academies Press. 2. Keith Milan Bischoff-Ferrari HA et al. Evaluation, treatment, and prevention of vitamin D deficiency: an Endocrine Society clinical practice guideline. JCEM. 2010; 96(7):1911-30. Performed at: [address] [id number] Lapeler: Bibi Martinez MD, Phone: [phone] 10 Note: Persistent reduction for 3 months or more in an eGFR <60 mL/min/1.73 m2 defines CKD. Patients with eGFR values >/=60 mL/min/1.73 m2 may also have CKD if evidence of persistent proteinuria is present. The original MDRD equation for estimated GFR is not valid for patients less than 18 years of age. Additional information may be found at www.kdoqi.org. 11 GASTROSCOPY [id number] 12 FIRST MORNING SPECIMENS GENERALLY CONTAIN THE HIGHEST CONCENTRATION OF HCG AND ARE RECOMMENDED FOR EARLY DETECTION OF . Method: Quidel QuickVue One-Step Immunoassay 13 R10.00 K76.0 14 This test was developed and its performance characteristics determined by [facility]. It has not been cleared or approved by the Food and Drug Administration. 15 Specimen received had a pH less than five (<5.0). Porphyrins are not stable at low pH. Interpret results with caution. If acid preservative was used, consider resubmitting an aliquot from a sample that was collected with 5g sodium carbonate/L urine. A sample with no preservative is also acceptable. 16 This test was developed and its performance characteristics determined by [facility]. It has not been cleared or approved by the Food and Drug Administration. Performed at: [address] [id number] Lap[place]: Kyle Morrison MD, Phone: [phone] 17 N91.1,R55,R94.31,R79.1,I87.8,R10.11 18 Performed at: [address] [id number] Lap[place]: Bibi Martinez MD, Phone: [phone] 19 No hemoglobin concentration provided; hemoglobin of 14.5 [...] include abnormal forms of hepatic PBG deaminase. 20 Reference Range 0.0 - 1.0 ug/dL=normal > 1.0 ug/dL=elevated The performance characteristics of the listed assay were validated by [facility]. The [place] FDA has not approved or cleared this test. The results of this assay can be used for clinical diagnosis without FDA approval. [facility] is a CLIA certified, CAP accredited laboratory for performing high complexity assays such as this one. Performed at: [facility] [address] [place] [id number] Lapeler: Tamir Mendez MD, Phone: [phone] Performed at: E=- [facility] [address] [place] [id number] Lapeler: Huang Villasenor PhD, Phone: [phone] Performed at: [address] [id number] 21 This test was developed and its performance characteristics determined by [facility]. It has not been cleared or approved by the Food and Drug Administration. 22 Performed at: - [facility] [address] [id number] Lapeler: Kyle Morrison MD, Phone: [phone] 23 Factor VIII quantitation (non-functional) measures the quantity of the factor VIII protein (factor VIII antigen) and is NOT a measure of the von Willebrand antigen (previously called factor VIII-related antigen). To evaluate for von Willebrand disease, vWF antigen and/or vWF activity should be ordered. Reference Range: 18 - 60y: 64 - 189 Performed at: [facility] [address] [id number] Lap[place]: Jordan Hammond MD, Phone: [phone] 24 R10.11,K76.0 25 Note: Persistent reduction for 3 months or more in an eGFR <60 mL/min/1.73 m2 defines CKD. Patients with eGFR values >/=60 mL/min/1.73 m2 may also have CKD if evidence of persistent proteinuria is present. The original MDRD equation for estimated GFR is not valid for patients less than 18 years of age. Additional information may be found at www.kdoqi.org. 26 Values below the stated reference ranges of AST and ALT can be seen in normal populations. Clinical correlation is suggested. 27 F0 - No fibrosis 28 S0 - S1 No Steatosis - Minimal Steatosis 29 N0 - Not THOMAS 30 Quantitative results of 10 biochemicals in combination [...] of 72% for identification of significant steatosis(2). THOMSA marker: In a population of 257 NAFLD patients, where 62% had at least some THOMAS by liver biopsy, a prediction of THOMAS had a sensitivity of 88% for identifying THOMAS and a specificity of 50%(3). 31 <0.21=Stage F0 - No fibrosis 0.21 - 0.27=Stage F0 - F1 0.27 - 0.31=Stage F1 - Portal fibrosis 0.31 - 0.48=Stage F1 - F2 0.48 - 0.58=Stage F2 - Bridging fibrosis with few septa 0.58 - 0.72=Stage F3 - Bridging fibrosis with many septa 0.72 - 0.74=Stage F3 - F4 >0.74=Stage F4 - Cirrhosis 32 < 0.30=S0 - No Steatosis 0.30 to 0.38=S0 - S1 0.38 to 0.48=S1 - Minimal Steatosis 0.48 to 0.57=S1 - S2 0.57 to 0.67=S2 - Moderate Steatosis 0.67 to 0.69=S2 - S3 > 0.69=S3 - Marked or Severe Steatosis 33 0.25=N0 - Not THOMAS 0.50=N1 - Borderline or probable THOMAS 0.75=N2 - THOMAS 34 THOMAS FibroSure is recommended for patients with suspected non-alcoholic fatty liver disease. It is not recommended for patients with other liver diseases. It is also not recommended in patients with Gilbert Disease, acute hemolysis, acute viral hepatitis, drug induced hepatitis, genetic liver disease, autoimmune hepatitis and/or extra- hepatic cholestasis. Any of these clinical situations may lead to inaccurate quantitative predictions of fibrosis. 35 Performed at: [facility] [id number] [place]: Kyle Morrison MD, Phone: [phone] Performed at: [address] [id number] [place]: Bibi Martinez MD, Phone: [phone] 36 This test was developed and its performance characteristics determined by [facility]. It has not been cleared or approved [...] fatty liver disease. BMC Gastroenterology 2006; 6:34 doi:10.1186/8564-116I-0-34. 37 INFCE Result Units: %mean normal Abnormal <41 Equivocal 41 - 67 Normal >67 38 R SIDE PAIN X 3 DAYS. WORSENING 39 Negative 0.0 - 20.0 Equivocal 20.1 - 24.9 Positive >24.9 Mitochondrial (M2) Antibodies are found in 90-96% of patients with primary biliary cirrhosis. 40 Negative 0 - 19 Weak positive 20 - 30 Moderate to strong positive >30 Actin Antibodies are found in 52-85% of patients with autoimmune hepatitis or chronic active hepatitis and in 22% of patients with primary biliary cirrhosis. 41 Performed at: [facility] [id number] [place]: Bibi Martinez MD, Phone: [phone] Performed at: [facility] [id number] Lap[place]: Kyle Morrison MD, Phone: [phone] 42 Negative 0 - 19 Weak Positive 20 - 30 Moderate to Strong Positive >30 43 Negative 0 - 19 Weak Positive 20 - 30 Moderate to Strong Positive >30 44 Negative 0 - 3 Weak Positive 4 - 10 Positive >10 Tissue Transglutaminase (tTG) has been identified as the endomysial antigen. Studies have demonstr- ated that endomysial IgA antibodies have over 99% specificity for gluten sensitive enteropathy. 45 Negative 0 - 5 Weak Positive 6 - 9 Positive >9 46 Negative <1:80 Borderline 1:80 Positive >1:80 47 Protein electrophoresis scan will follow via computer, mail, or drier operator head delivery. 48 The SPE pattern appears essentially unremarkable. Evidence of monoclonal protein is not apparent. 49 Non Reactive: Inconsistent with immunity, less than 10 mIU/mL Reactive: Consistent with immunity, greater than 9.9 mIU/mL 50 INFCE Result Units: s/co ratio Negative: < 0.8 Indeterminate: 0.8 - 0.9 Positive: > 0.9 The CDC recommends that a positive HCV antibody result be followed up with a HCV Nucleic Acid Amplification test (906683). Performed at: - [facility] [address] [id number] Lapeler: Bibi Martinez MD, Phone: [phone] 51 INDUCTION OF LABOR 52 Note: Persistent reduction for 3 months or more in an eGFR <60 mL/min/1.73 m2 defines CKD. Patients with eGFR values >/=60 mL/min/1.73 m2 may also have CKD if evidence of persistent proteinuria is present. The original MDRD equation for estimated GFR is not valid for patients less than 18 years of age. Additional information may be found at www.kdoqi.org. 53 Note: Persistent reduction for 3 months or more in an eGFR <60 mL/min/1.73 m2 defines CKD. Patients with eGFR values >/=60 mL/min/1.73 m2 may also have CKD if evidence of persistent proteinuria is present. The original MDRD equation for estimated GFR is not valid for patients less than 18 years of age. Additional information may be found at www.kdoqi.org. 54 CALLED "K" TO MOHSEN Lockett AT 0955 02/20/17 by LAB.RAP 55 CALLED "K" TO MOHSEN Lockett AT 0955 02/20/17 by LAB.RAP 56 URINE, STRAIGHT CATHETHER 57 Performed at: - [facility] [id number] [place]: Kyle Morrison MD, Phone: [phone] 25 WEEKS, ABD PAIN/PRESSURE 59 NO GROWTH: FINAL REPORT 60 URINE SPECIMENS ARE SCREENED AT THE [...] SPECIMENS ARE HELD FOR 72 HOURS. 61 URINE, CLEAN CATCH 62 Tests: UDOA Instructions: 63 Approximate Gestational Age and Total BHCG Range: 0.2 - 1 Week........................5-50 mIU/mL 1 - 2 Weeks.....................50-500 mIU/mL 2 - 3 Weeks..................100-5,000 mIU/mL 3 - 4 Weeks.................500-10,000 mIU/mL 4 - 5 Weeks...............1,000-50,000 mIU/mL 5 - 6 Weeks.............10,000-100,000 mIU/mL 6 - 8 Weeks.............15,000-200,000 mIU/mL 2 - 3 Months............10,000-100,000 mIU/mL 64 Performed at: - [facility] [id number] Lap[place]: Kyle Morrison MD, Phone: [phone] 65 Performed at: - [facility] [address] [id number] [place]: Bibi Martinez MD, Phone: [phone] 66 Note: Persistent reduction for 3 months or more in an eGFR <60 mL/min/1.73 m2 defines CKD. Patients with eGFR values >/=60 mL/min/1.73 m2 may also have CKD if evidence of persistent proteinuria is present. The original MDRD equation for estimated GFR is not valid for patients less than 18 years of age. Additional information may be found at www.[email or web address]. 67 NEGATIVE No mutation identified. Comment: A point mutation ([id number]) in the factor II (prothrombin) gene is [...] mutations. This assay detects only the prothrombin [id number] mutation and does not measure genetic abnormalities elsewhere in the genome. Other thrombotic risk factors may be pursued through systematic clinical laboratory analysis. These factors include the R506Q (Leiden) mutation in the Factor V gene, plasma homocysteine levels, as well as testing for deficiencies of antithrombin III, protein C and protein S. 68 Genetic Counselors are available for health care providers to discuss results at [phone] ([phone]). Methodology: DNA analysis of the Factor II gene was performed by PCR amplification followed by restriction analysis. The diagnostic sensitivity is >99% for both. All the tests must be combined with clinical information for the most accurate interpretation. Molecular-based testing is highly accurate, but as in any laboratory test, diagnostic errors may occur. Poort SR, et al. Blood. 1996; 88:9954-4890. Bobby EA. Circulation. 2004; 110:e15-e18. Deshawn I, et al. Arterioscler Thromb Vasc Biol. 1999; 19:700-703. 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 The MTHFR C677T variant [...] be detected through systematic clinical laboratory analysis. 70 Genetic counselors are available to discuss these results with health care providers at [phone]. Methylenetetrahydrofolate reductase (MTHFR) is a hernadez enzyme in the folate pathway and is responsible for the metabolism of homocysteine. There are two common variants in the MTHFR gene, c.655C>T (p.Dtx381Bpx), referred to as C677T, and c.1286A>C (p.Fxc036Laz), referred to as Z3158V. Individuals homozygous for C677T (two copies of [...] conditions in the absence of hyperhomocysteinemia. The D2659J variant is not associated with elevated homocysteine levels unless a C677T variant is also present; however, the clinical significance of heterozygosity for both C677T and E5887S is controversial. Population data suggest that these [...] clinical information for the most accurate interpretation. 71 Ki STEVENSON, Elmer Q. Am J Epidemiol 2000; 151(9):862-877. Maulik MM, Merrill JA. Arch Pathol Lab Med 2007; 131(6):872-884. Frosst P et al. Vera Ping 1995; 10(1):111- 113. Hickey SE et al. Ping Med 2013; 15(2):153-156. Ashley C et al. Obstet Gynecol 2011; 118(3):730-740. Tom B et al. Eur J Epidemiol 2013; 28(8):621-647. Robinson Blunt, PhD Amairani Mcintyre, PhD Martha Olvera, PhD Ree Carbajal, MS, PhD Gertrude Chua, PhD Alissa Ngo, PhD Performed at: [place] [facility] [id number] [place], [place] [id number] Lapeler: Julio Cesar Luke MD, Phone: [phone] 72 Organism 1 ! URETHRAL ABI Quantity ! 50,000 - 100,000 CFU/mL 73 Acceptable specimens for this test are male urethral swab, endocervical swab and liquid based pap specimens, vaginal swabs in APTIMA transports and first void urine. See online Directory of Services for test number for rectal and pharyngeal specimens. Performed at: [address] [id number] [place]: Bibi Martinez MD, Phone: [phone] 74 No lupus anticoagulant was detected. 75 Performed at: [address] [id number] [place]: Kyle Morrison MD, Phone: [phone] 76 Performed at: [address] [id number] Lapeler: Kyle Morrison MD, Phone: [phone] 77 04/08/15 LAB.JWR WRONG TEST ORDERED 78 Negative: <15 Indeterminate: 15 - 20 Low-Med Positive: >20 - 80 High Positive: >80 79 Negative: <13 Indeterminate: 13 - 20 Low-Med Positive: >20 - 80 High Positive: >80 80 Negative: <12 Indeterminate: 12 - 20 Low-Med Positive: >20 - 80 High Positive: >80 Performed at: [address] [id number] Lapeler: Bibi Martinez MD, Phone: [phone] 81 Acceptable specimens for this test are male urethral swab, endocervical swab and liquid based pap specimens, vaginal swabs in APTIMA transports and first void urine. See online Directory of Services for test number for rectal and pharyngeal specimens. Performed at: [address] [id number] Lapeler: Bibi Martinez MD, Phone: [phone] 82 GENITAL ABI 83 GRAM STAIN ! GRAM STAIN INDETERMINANT FOR BACTERIAL VAGINOSIS ! FEW GRAM POSITIVE COCCI ! VERY FEW GRAM POS BACILLI SUGGESTIVE OF CORYNEBACTERIA 84 Performed at: [address] [id number] Lapeler: Kyle Morrison MD, Phone: [phone] 85 PENDING; TEST PERFORMED ON MONDAYS AND THURSDAYS 86 07/14/14 LAB.MPK Deleted by [employer] UACOM 87 NO GROUP B STREPTOCOCCI ISOLATED 88 Acceptable specimens for this test are male urethral swab, endocervical swab and liquid based pap specimens, vaginal swabs in APTIMA transports and first void urine. See online Directory of Services for test number for rectal and pharyngeal specimens. Performed at: [address] [id number] Lapeler: Bibi Martinez MD, Phone: [phone] 89 Negative: <15 Indeterminate: 15 - 20 Low-Med Positive: >20 - 80 High Positive: >80 90 Negative: <13 Indeterminate: 13 - 20 Low-Med Positive: >20 - 80 High Positive: >80 Performed at: [address] [id number] Lapeler: Bibi Martinez MD, Phone: [phone] Performed at: [address] [id number] Lapeler: Kyle Morrison MD, Phone: [phone] 91 No lupus anticoagulant was detected. 92 A deficiency of protein S (PS), either [...] is diagnosed with congenital Protein S deficiency. 93 Genetic counselors are available for health care providers to discuss results at [phone] ([phone]). Methodology: DNA analysis of the Factor V [...] MD, PhD ÁNGEL Littlejohn, PhD Performed at: [facility] [address] [place], [place] [id number] Lapeler: Julio Cesar Luke MD, Phone: [phone] 05/16/14 1414: . previously reported as: Amended result called to: [] - 05/16/14 at 1414 94 Result: Negative (no mutation found) Factor V [...] the workup for venous thrombosis include the [id number] mutation in the factor II (prothrombin) gene, protein S and C deficiency, and antithrombin deficiencies. Anticardiolipin antibody and lupus anticoagulant analysis may be appropriate for certain patients, as well as homocysteine levels. Contact your local [facility] for information on how to order additional testing if desired. 95 No lupus anticoagulant was detected. 96 POST GLUCOLA 97 NO SPECIMEN RECEIVED 98 NO SPECIMEN RECEIVED 99 Negative <135 Equivocal 135 - 165 Positive >165 A positive result generally indicates exposure to the pathogen or administration of specific immunoglobulins, but it is not indication of active infection or stage of disease. Performed at: [address] [id number] Lapeler: Bibi Martinez MD, Phone: [phone] 100 No reportable results 101 HBsAg not detected; does not exclude the possibility of exposure to or early acute infections with HBV. 102 CDC (Centers for Disease Control) and the ACCLPP (Advisory Committee on Childhood Lead Poisoning Prevention) have reported adverse health events with pediatric blood lead levels greater than or equal to 5 ug/dL. [facility] Guidelines : Blood lead levels in the range of 5-9 ug/dL have been associated with adverse health effects in children aged six years and younger. Environmental Exposure : WHO Recommendation <20 Occupational Exposure: OSHA Lead Std 40 Detection Limit=1 Performed at: [address] [id number] Lapeler: Bibi Martinez MD, Phone: [phone] 103 PENDING; TEST PERFORMED ON MONDAYS AND THURSDAYS 104 Values >=10.0 IU/mL are positive for IgG antibodies to rubella virus and are considered IMMUNE. 105 COLONY COUNT ! 20,000-30,000 CFU/ml Organism 1 ! MIXED URETHRAL ABI 106 GENITAL ABI 107 GRAM STAIN ! GRAM STAIN INDICATES NORMAL GENITAL ABI ! MANY GR POS. BACILLI SUGGESTIVE OF LACTOBACILLUS SP. ! VERY FEW GRAM POSITIVE COCCI 108 Acceptable specimens for this test are male urethral swab, endocervical swab and liquid based pap specimens, vaginal swabs in APTIMA transports and first void urine. See online Directory of Services for test number for rectal and pharyngeal specimens. Performed at: RN - [facility] [address] [id number] [place]: Bibi Martinez MD, Phone: [phone] 109 COLONY COUNT ! 1,000 - 5,000 CFU/ml Organism 1 ! URETHRAL ABI Procedures Date CPT Code Description Status 12/27/2017 47213 Theraputic Or Diagnostic Injection Completed 12/13/2017 96064 Theraputic Or Diagnostic Injection Completed 06/30/2017 10595 EGD Completed 02/11/2017 76702 EKG-Tracing And Report Completed 02/09/2017 57058 Echocardiogram Complete Completed 02/09/2017 51140 EKG Interpretation And Report Only Completed 04/11/2015 30962 Eye Exam New Patient Comprehensive Completed 08/28/2014 17030 Post- Care Only Completed 07/15/2014 08901 Vaginal Delivery Global Care Completed 07/15/2014 76850 Anesthesia,Neuraxial Labor Completed 07/08/2014 90695 Antepartum 7 Or More Total Office Visit Completed 07/01/2014 08500 Antepartum 7 Or More Total Office Visit Completed 06/25/2014 28662 Antepartum 7 Or More Total Office Visit Completed 06/10/2014 70897 Antepartum 7 Or More Total Office Visit Completed 05/27/2014 61832 Antepartum 7 Or More Total Office Visit Completed 05/02/2014 81691 Antepartum 7 Or More Total Office Visit Completed 04/01/2014 61469 Antepartum 7 Or More Total Office Visit Completed 02/26/2014 03722 Antepartum 7 Or More Total Office Visit Completed 01/24/2014 78405 Antepartum 7 Or More Total Office Visit Completed 12/21/2013 81309 Antepartum 7 Or More Total Office Visit Completed 07/23/2013 31441 xray spine cervical min 4 views Completed Encounters Type Date Location Provider CPT E/M Dx Office Visit 03/31/2018 2:[place] [address] R10.11 K76.0 E80.4 Office Visit 03/24/2018 12:00p Urology Aditya Shields M.D. 45597 N20.0 Office Visit 12/15/2017 1:00p Surgical Office Hunter Coulter, 62051 R10.9 M.D. Office Visit 12/13/2017 9:00a [place] [address] E72.12 R10.9 E55.9 E53.9 E61.1 Office Visit 11/30/2017 3:00p [place] [address] E72.12 D68.61 R10.9 E55.9 Office Visit 11/28/2017 3:45p Surgical Office Hunter Coulter, 71155 E72.12 M.DJanet R10.11 Office Visit 10/07/2017 10:00a [place] [address] E72.12 D68.61 R10.11 Office Visit 06/24/2017 9:00a [place] [address] D68.61 E72.12 R10.9 N92.0 Office Visit 06/22/2017 1:30[place] [address] I87.8 R10.11 K76.0 E80.4 Office Visit 02/11/2017 1:00p [place] [address] R55 R94.31 Office Visit 09/17/2015 3:30p Family Medicine Fawn Blackwell M.D. 85249 N91.1 Office Visit 07/11/2015 9:00a Family Medicine Maureen Chou, [facility] [address]492 Z30.09 Z30.018 Z23 Office Visit 05/06/2015 11:30[place] [address] R79.1 Office Visit 04/23/2015 10:00[place] [address] R79.1 Office Visit 04/10/2015 11:00[place] [address] 790.92 723.1 626.4 Office Visit 04/10/2015 9:15a Family Medicine Maureen Chou, 47352 626.4 [employer] Office Visit 09/04/2013 8:45a Orthopaedic Office Cindi Flowers, [address] [facility] 723.1 719.41 723.1 Office Visit 07/23/2013 8:30a Orthopaedic Office Cindi Flowers, [facility] [address] 723.1 719.41 723.1 719.41 Office Visit 06/28/2013 2:30p Orthopaedic Office Cindi Flowers, [address] [facility] 719.41 Plan of Care Future Appointment(s):05/05/2018 3:30 pm - Harman Govea MD at [facility]09/25/2018 9:30 am - Aditya Shields M.D. at [facility]/14/2018 - Candy Resendiz MD, PHDN20.0 Calculus of zlzvacB87.4 Gilbert syndromeComments:Big handout given Look for a probioic over the counter that contains the strain Bifidobacterium longum - can help with irritable bowel and mood. Avoid food poisoning. Anibiotics will flare Don't get dehydratedDon't do extended fastsRecommend low carb, high protein OmniHeart dietK76.0 Fatty (change of) liver, not elsewhere pyfpbublvfM80.11 Right upper quadrant painE72.12 Methylenetetrahydrofolate reductase daoslotxtcS27.9 Vitamin B deficiency, ilbjoymwplyV90.9 Vitamin D deficiency, unspecifiedNew Labs:Vitamin D,25-PczhxwoR55.3 Encntr screen for infections w sexl mode of transmissNew Labs:Chlam/GC/Trichomonas PCR, UrUa RFX Micro & Culture IIHIV Screen 4TH Gen ReflexTreponema Antibody CascadeHepatitis EvaluationHSV Type I Specific IggHSV II,Igg,Type SpecificCytomegalovirus (CMV) AB, IggEbv Acute Infection SsnjjcbrvdJ85.613 High grade intrepith lesion cyto smr crvx (HGSIL)Comments:Being managed by Dr. CoxG47.00 Insomnia, unspecifiedNew Medication:Wagner-3 CF 1000 mgD3 Maximum Strength 5000 UnitB12 Fast Dissolve 5000 mcgNac 600 600 mgTrazodone HCL 50 mgNew Labs:Thyroid Stim HormoneFree K3Aelcuuzwykqqm RateVitamin B12 And FolateLyme Igg & Igm By Western BlotComments:Practice good sleep hygiene, including:~ Restricting the night-time sleep period to about eight hours~ Waking at a regular time~ Arising from bed at a regular time~ Avoiding going to bed too early~ Avoiding alcohol~ Avoiding stimulants, caffeinated beverages, power/energy drinks, nicotine, and ngjj-cwk-ctlgjmf medications~ Avoiding stimulating activities, light, noise, and temperature extremes beforebedtime (e.g., exercise, video games, T.V.) or in the sleeping area~ Reducing (to less than 30 minutes), or abolishing, daytime naps~ Practicing relaxation techniques~ Engaging in moderate exercise, but not immediately before bedtimeGoals:Action plan for overcoming depression Find a counselor you trust. Get 30 min of any type of exercise daily. Check out the Free Wu "Head Space" to help with meditation. Get 7-8 hours of sleep at night. Up your intake of essential omega 3 fatsThis means eating oily fish at least twice a week, seeds on most days and supplementing omega 3 fish oils. The best fish for EPA, the type of omega 3 fat that??s linked with improving mood, are: Mackerel (1,400mg per 100g/3oz), Bejarano/kipper (1,000mg), Sardines (1,000mg),fresh tuna (900mg), Anchovy (900mg), [place] (800mg),[place] (500mg). Tuna, being high inmercury is best eaten not more than three times a month. The best seeds are flax seeds and pumpkin seeds. Flax seeds are so small they are best ground and sprinkled on cereal. Alternatively, use flax seed oil, for example in salad dressings. While technically providing omega 3 only about 5% of the type of omega 3 (alpha linolenic acid) in these seeds is converted in your body into EPA. Wagner-3 seedsand seed oil should not be cooked. When supplementing omega 3 fish oils you are aiming for about 1,000mg of EPA a day for a mood boosting effect. That means supplementing a concentrated Wagner 3 Fish Oil capsule providing 500mg, once or twice a day and eating a serving of any of the above fish three times a week. Check your homocysteine level and get enough B vitaminsYour homocysteine level is an indicator of your B vitamin needs. , You can be tested through your GP or using a home test kit. If your level is above 9mmol/l take a combined ??homocysteine?? supplement of B2, B6, B12, folic acid, zinc, and TMG, providing at least 400mcg of folic acid, 250mcg of B12 and 20mg of B6. If your homocysteine score is above 15mmol/l double this amount. Also eat B vitamin rich whole foods ?? whole grains, beans, nuts, seeds , fruits and vegetables. Folic acid is particularly rich in green vegetables, beans, lentils, nuts and seeds, while B12 is only found in animal foods ?? meat , fish, eggs and dairy produce. A good starting point is also to supplement a multivitamin providing optimal levels of B vitamins,which means 25mg-50mg of B1 , B2, B3 (niacin), B5 (pantothenic acid), B6 (pyridoxine) and at least 100mcg of folic acid and 10mcg of B12 and biotin. Consider supplementing the amino acid 5-HTPMost of the effective studies used 300mg of 5-HTP, however we ideally recommend testing if you are low in serotonin with a platelet serotonin test and starting with 100mg, or 50mg twice a day. If 5-HTP is not available, you could supplement the amino acid tryptophan in amounts of 500mg ?? 2g per day ?? again, we would suggest starting at the lower end. Tryptophan is best absorbed either on an empty stomach or,ideally, with a carbohydrate snack such as a piece of fruit or an oatcake. 5-HTP is well-absorbed with or without food. Also , make sure you eat enough protein from beans, lentils, nuts, seeds, fish, eggs and meat, which are all high in tryptophan. Do not take 5-HTP or tryptophan if you are currently taking an anti-depressant without your doctor??s permission. Avoid or reduce caffeine, sugar, refinedcarbohydrates and alcoholEat a diet that will stabilise your blood sugar (known as the Low GL diet).The hernadez points are: Only eat low GL carbohydrates; Always combine your low GL carbohydrates with protein in a ratio of 1:1; Eat at regular intervals, including snacks that include low GL carbohydrate and protein such as fresh fruit with a handful of nuts, oatcakes with homous or celery and cottage cheese; Only eat sweet foods as a very occasional treat and only after a meal or healthy snack. To really get to lan manager with this type of eating plan, we highly recommend Pa Becerra??s Low GL Dietbook. Consider supplementing chromiumIf you suffer from ? ?atypical depression?? (see above) studiesshow that 600mcg of chromium a day is effective. Supplements generally come in 200mcg pills. Take two with breakfast and one with lunch. If this works, after a month reduce to one with breakfast and one with lunch. If this works, reduce to one with breakfast after a further month. Don??t take chromiumin the evening as it can be stimulating. In addition to supplementing chromium, you should adopt the low GL Diet style of eating as outlined above. Have a vitamin D testAsk your GP or nutritional therapist for a vitamin D test. If your level is below 75 nmol/litre, supplement 2,000 iu per day for 12weeks, and then get a retest. Get some sensible sun exposure, without sun-block, but don??t risk your skin health by allowing yourself to get sunburned! Investigate food intolerancesYou may suspect some foods which may or may not be one of the usual suspects - are gluten (wheat, rye, barley), wheat,dairy (all types ?? cow, sheep, goat, milk, cheese, cream etc), soya, yeast and eggs. If this is thecase, you could try an exclusion of the food or foods for a brief trial period. Alternatively, you could undertake an IgG MAMTA blood test to determine whether you have raised antibody levels to specific foods in your blood which is a good indication. Either way, don??t make dramatic changes to your diet or cut out whole food groups without professional guidance to ensure your diet remains healthy and balanced ?? this is especially important for the frail and for children. Finding helpF34.1 Dysthymic disorderComments:To help lesson mood and anxiety with neutraceuticals - long-term, will take weeks to months to show an effect often: Vitamin D - likely deficient due to gay effect in [place]. Implicated in osteoporosis, osteopenia, fatigue, increased risk of diabetes, and depression/ seasonal affective disorder. Recommend you take 4000 to 5000 IU of Vitamin D3 daily. Can check vitamin D25 level - takes year+ to replace deficiency. Can get capsule or gummy over the counter. Wagner 3 - essential fatty acid has a mild moodstabilizing effect. Good supplement for kids and aids brain development. Increases good cholesterol and helps clean plaque out of arteries, also has an anti-inflammatory effect for joints, skin, etc. recommend 1000mg of DHA +EPA daily - capsule or gummy over the counter. N-acetyl Cysteine - current studies show a an anti-agitation, improved clarity of thought effect. Biologically seems to reduce inflammation in nervous system. Studies show 1800mg to 2400mg daily safe. Improvements start at 3 weeks, continue to improve at 12 weeks of taking.
[2018-05-03 09:38] VITALS: BP 109/72
--- NOTE | 2018-05-03 09:42 | UC ---
Skin Complaint HPI - HPI Summary HPI Summary: 22-year-old female with personal history for chlorine allergy only presents with urticaria since yesterday. She recently returned from a trip to [place] and states she experienced a brief episode of hives there. They returned last night, and are worse this morning. She has no lip, tongue or throat swelling. She has had no wheezing or shortness of breath. She has had mild nausea only after taking Benadryl. Topical hydrocortisone has had little effect. No other family members have had similar symptoms. She denies any ingestion of seafood, nuts or new clothing. She is not sure what made cause this. Denies any tick bites. - History of Current Complaint Time Seen by Provider: 05/03/18 09:30 Stated Complaint: RASH Hx Obtained From: Patient Hx Last Menstrual Period: 04/24/18 Pain Intensity: 0 - Allergy/Home Medications Allergies/Adverse Reactions: Allergies Allergy/AdvReac Type Severity Reaction Status Date / Time latex Allergy Rash And Verified 05/03/18 09:38 Itching nickel Allergy Severe Rash Uncoded 05/03/18 09:38 CHLORINE Allergy Rash Uncoded 05/03/18 09:38 Review of Systems Skin: Rash Eyes: Negative ENT: Negative Respiratory: Negative Gastrointestinal: Nausea All Other Systems Reviewed And Are Negative: Yes PMH/Surg Hx/FS Hx/Imm Hx Previously Healthy: Yes - Surgical History Surgical History: None Surgery Procedure, Year, and Place: None - Family History Known Family History: Positive: None Negative: Diabetes, Other - NEG: gallbladder disease - Social History Alcohol Use: None Substance Use Type: None Smoking Status (MU): Never Smoked Tobacco - Immunization History Most Recent Influenza Vaccination: 06/2015 Most Recent Tetanus Shot: unknown Vaccination Up to Date: Yes Physical Exam Triage Information Reviewed: Yes Appearance: Well-Appearing, No Pain Distress, Well-Nourished Vital Signs: Initial Vital Signs Temp 98.7 F 05/03/18 09:30 Pulse 78 05/03/18 09:30 Resp 18 05/03/18 09:30 BP 109/72 05/03/18 09:30 Pulse Ox 99 05/03/18 09:30 Eye Exam: Normal ENT Exam: Normal Neck: Positive: Supple Respiratory: Positive: Chest non-tender, Lungs clear, Normal breath sounds Cardiovascular: Positive: RRR Abdomen Description: Positive: Nontender Musculoskeletal Exam: Normal Skin: Positive: rashes - Urticaria noticed most on the insides of both thighs and the lower abdomen. Course/Dx - Course Course Of Treatment: Patient with mild skin allergy type symptoms only with urticaria. No systemic signs. Treated with H1, H2 blockers and steroids. Follow-up with primary care physician for allergy testing. - Differential Diagnoses - Skin Complaint Differential Diagnoses: Other - Urticaria versus erythema multiforme minor - Diagnoses Provider Diagnoses: Acute urticaria. Unknown allergic exposure Discharge - Sign-Out/Discharge Documenting (check all that apply): Patient Departure - Discharge Plan Condition: Improved Disposition: HOME Prescriptions: Famotidine TAB* [Pepcid 20 MG TAB*] 20 mg PO BID PRN #20 tab PRN Reason: itching/rash methylPREDNISolone [Medrol] 4 mg PO DAILY #1 tab.ds.pk Patient Education Materials: Urticaria (ED) Referrals: Candy Resendiz MD [Primary Care Provider] - Additional Instructions: Call your doctor today to schedule follow-up appointment and likely allergy testing. Return with severe allergy symptoms, difficulty breathing, lip, tongue, or throat swelling, worse, new symptoms or other concerns. Use Benadryl and topical hydrocortisone. Do not use hydrocortisone on the face or genitalia. - Billing Disposition and Condition Condition: IMPROVED Disposition: Home
== END 2018-05-03 09:42 | disposition home or self-care (01) ==
LOC: UCCORT 09:07
DX: L50.9 Urticaria, unspecified (principal); T78.40XA Allergy, unspecified, initial encounter; X58.XXXA Exposure to other specified factors, initial encounter; Y92.9 Unspecified place or not applicable
CPT/HCPCS: 99212; G0463

== ENCOUNTER 2018-12-17 09:28 | Emergency (ER) | payer OTHER ==
[2018-12-17 09:50] VITALS: BP 141/82
--- NOTE | 2018-12-17 10:17 | UC ---
Throat Pain/Nasal Raza HPI - HPI Summary HPI Summary: 23 year old female here for congestion and throat pain. Reports symptoms started two days ago with congestion and subjective fever. Both children with same symptoms. Once diagnosed with strep throat. No chest pain or sob. - History of Current Complaint Chief Complaint: UCRespiratory Stated Complaint: ST Time Seen by Provider: 12/17/18 09:39 Hx Last Menstrual Period: pt has nexplanon BC and states not getting a menses Onset/Duration: Gradual Onset Pain Intensity: 6 Associated Signs & Symptoms: Positive: Nasal Discharge - Allergies/Home Medications Allergies/Adverse Reactions: Allergies Allergy/AdvReac Type Severity Reaction Status Date / Time latex Allergy Rash And Verified 12/17/18 09:51 Itching nickel Allergy Severe Rash Uncoded 12/17/18 09:51 CHLORINE Allergy Rash Uncoded 12/17/18 09:51 Home Medications: Home Medications Acetaminophen [Acetaminophen Extra Strength] 500 mg PO ONCE PRN 12/17/18 [ History Confirmed 12/17/18] PMH/Surg Hx/FS Hx/Imm Hx - Surgical History Surgical History: None Surgery Procedure, Year, and Place: None - Family History Known Family History: Positive: None Negative: Diabetes, Other - NEG: gallbladder disease - Social History Alcohol Use: None Substance Use Type: None Smoking Status (MU): Never Smoked Tobacco - Immunization History Most Recent Influenza Vaccination: 06/2015 Most Recent Tetanus Shot: unknown Vaccination Up to Date: Yes Review of Systems All Other Systems Reviewed And Are Negative: Yes Constitutional: Positive: Negative Skin: Positive: Negative Eyes: Positive: Negative ENT: Positive: Sore Throat, Nasal Discharge. Negative: Sinus Congestion, Sinus Pain/Tenderness Respiratory: Positive: Negative Cardiovascular: Positive: Negative Gastrointestinal: Positive: Negative Motor: Positive: Negative Neurovascular: Positive: Negative Musculoskeletal: Positive: Negative Physical Exam Triage Information Reviewed: Yes Vital Signs: Initial Vital Signs Temp 36.6 C 12/17/18 09:46 Pulse 98 12/17/18 09:46 Resp 16 12/17/18 09:46 BP 141/82 12/17/18 09:46 Pulse Ox 98 12/17/18 09:46 Eye Exam: Normal ENT: Positive: Pharyngeal erythema, Uvula midline. Negative: Tonsillar swelling , Tonsillar exudate, Sinus tenderness Dental Exam: Normal Neck exam: Normal Neck: Positive: 1 Respiratory Exam: Normal Cardiovascular Exam: Normal Abdominal Exam: Normal Musculoskeletal Exam: Normal Neurological Exam: Normal Psychological Exam: Normal Skin Exam: Normal Throat Pain/Nasal Course/Dx - Differential Dx/Diagnosis Differential Diagnosis/HQI/PQRI: Epiglottitis, Pharyngitis, URI Provider Diagnosis: Strep pharyngitis Discharge - Sign-Out/Discharge Documenting (check all that apply): Patient Departure All imaging exams completed and their final reports reviewed: No Studies - Discharge Plan Condition: Good Disposition: HOME Prescriptions: Penicillin VK 500 MG TAB(NF) [Penicillin VK 500 mg Tab] 500 mg PO TID 10 Days tab Penicillin VK 500 MG TAB(NF) [Penicillin VK 500 mg Tab] 500 mg PO BID 10 Days # 20 tab Patient Education Materials: Pharyngitis (ED) Referrals: Candy Resendiz MD [Primary Care Provider] - - Billing Disposition and Condition Condition: GOOD Disposition: Home
== END 2018-12-17 10:29 | disposition home or self-care (01) ==
LOC: UCCORT 09:28
DX: J02.0 Streptococcal pharyngitis (principal); Z91.040 Latex allergy status; Z91.09 Other allergy status, other than to drugs and biological substances
CPT/HCPCS: 87651; 99212; G0463

== ENCOUNTER 2019-05-02 08:26 | Emergency (ER) | payer OTHER ==
[2019-05-02 08:41] VITALS: BP 143/93
--- NOTE | 2019-05-02 09:09 | UC ---
Complaint Female HPI - HPI Summary HPI Summary: 23-year-old female comes in with a chief complaint of vaginal discharge that's itchy. She describes a status cheese and reports that it seems like a yeast infection which she's had in the past. No fevers or chills. Last menstrual period was March 27, 2019. She just discontinue the Nexplanon a few months ago and her periods have been irregular. Denies any concern of STI. No fevers or chills no flank pain. - History Of Current Complaint Chief Complaint: UCGeneralIllness Stated Complaint: PERSONAL Time Seen by Provider: 05/02/19 08:56 Hx Last Menstrual Period: 03/27/19 Pain Intensity: 2 - Allergies/Home Medications Allergies/Adverse Reactions: Allergies Allergy/AdvReac Type Severity Reaction Status Date / Time latex Allergy Rash And Verified 12/17/18 09:51 Itching nickel Allergy Severe Rash Uncoded 12/17/18 09:51 CHLORINE Allergy Rash Uncoded 12/17/18 09:51 Home Medications: Home Medications Multivitamins/Minerals TAB* [Theragran/minerals TAB*] 1 tab PO DAILY 05/02/19 [ History Confirmed 05/02/19] Sertraline* [Zoloft*] 100 mg PO DAILY 05/02/19 [History Confirmed 05/02/19] PMH/Surg Hx/FS Hx/Imm Hx Previously Healthy: Yes - Surgical History Surgical History: None Surgery Procedure, Year, and Place: None - Family History Known Family History: Positive: None Negative: Diabetes, Other - NEG: gallbladder disease - Social History Alcohol Use: None Substance Use Type: None Smoking Status (MU): Never Smoked Tobacco - Immunization History Most Recent Influenza Vaccination: 06/2015 Most Recent Tetanus Shot: unknown Vaccination Up to Date: Yes Review of Systems All Other Systems Reviewed And Are Negative: Yes Constitutional: Positive: Negative Skin: Positive: Negative Eyes: Positive: Negative ENT: Positive: Negative Respiratory: Positive: Negative Cardiovascular: Positive: Negative Gastrointestinal: Positive: Negative Genitourinary: Positive: Vaginal/Penile Itching, Vaginal/Penile Discharge Motor: Positive: Negative Neurovascular: Positive: Negative Musculoskeletal: Positive: Negative Neurological: Positive: Negative Psychological: Positive: Negative Is Patient Immunocompromised?: No Physical Exam Triage Information Reviewed: Yes Appearance: Well-Appearing, No Pain Distress, Well-Nourished Vital Signs: Initial Vital Signs Temp 98.2 F 05/02/19 08:38 Pulse 68 05/02/19 08:38 Resp 18 05/02/19 08:38 BP 143/93 05/02/19 08:38 Pulse Ox 99 05/02/19 08:38 Vital Signs Reviewed: Yes Eye Exam: Normal Eyes: Positive: Conjunctiva Clear Neck: Positive: Supple Respiratory: Positive: Lungs clear, Normal breath sounds, No respiratory distress Cardiovascular: Positive: RRR Abdomen Description: Positive: Nontender. Negative: CVA Tenderness (R), CVA Tenderness (L) Musculoskeletal: Positive: Strength Intact, ROM Intact Neurological: Positive: Alert Psychological: Positive: Age Appropriate Behavior Skin Exam: Normal Complaint Female Dx - Differential Dx/Diagnosis Provider Diagnosis: Vaginitis, Vaginal yeast infection Discharge - Sign-Out/Discharge Documenting (check all that apply): Patient Departure All imaging exams completed and their final reports reviewed: No Studies - Discharge Plan Condition: Stable Disposition: HOME Prescriptions: Fluconazole 150 MG TAB* [Diflucan 150 MG TAB*] 150 mg PO ONCE #2 tablet Patient Education Materials: Yeast Infection (ED), Vaginitis (ED) Referrals: Candy Resendiz MD [Primary Care Provider] - Additional Instructions: FOLLOW UP WITH YOUR DOCTOR IF NOT COMPLETELY IMPROVED. GET RECHECKED SOONER IF YOUR CONDITION DOES NOT IMPROVE OR WORSENS OR ANY QUESTIONS OR CONCERNS. - Billing Disposition and Condition Condition: STABLE Disposition: Home
--- OUTSIDE RECORDS SUMMARY | 2019-05-02 17:44 | XMS REPORT | Continuity of Care Document ---
:1995 External Reference #:[id number] Author Name Joel Han Care Team Providers Name Role Phone Candy Resendiz M.D. Primary Care Physician Unavailable Payers Date Identification Numbers Payment Provider Subscriber Expires: 2013 Policy Number: [id number] [employer] Fransisca Sebastián PayID: [id number] [address] [place] [id number] Expires: 2017 Policy Number: [id number] [place] [employer] [place] PayID: [id number] [address] [place] [address] Policy Number: [id number] [employer] Fransisca Genson PayID: [id number] [address] [address] [place] [address] Problems Active Problems Provider Date Headache Carol Cornejo M.D. Onset: 10/08/2014 Magnetic resonance imaging of brain abnormal Carol Cornejo M.D. Onset: 01/14 Note: Pontine lesion during 2013 Family History Date Family Member(s) Observation Comments General Hypertension General Asthma Father Hypertension Father Asthma Mother Unknown Social History Type Date Description Comments Sex Unknown Marital Status Significant Other Lives With Male Partner Lives With Children Occupation Unemployed Hand Dominance Right-handed Tobacco Use Start: Unknown Never Smoked Cigarettes Smoking Status Reviewed: 04/10/19 Never Smoked Cigarettes ETOH Use Denies alcohol use Tobacco Use Start: Unknown Patient has never smoked Recreational Drug Use Denies Drug Use Exercise Type/Frequency Walks 5 times a week Allergies, Adverse Reactions, Alerts Active Allergies Reaction Severity Comments Date NKDA 11/14/2018 Latex Rash Severe 10/08/2014 Metals Scabs Moderate 10/08/2014 Medications Active Medications SIG Qnty Indications Ordering Provider Date Sertraline HCL take 1 by mouth 30tabs R51 Carol Moralesjosue, 01/02/2019 100mg each day M.D. Tablets Tizanidine HCL 1 tablet by 30tabs M54.2 Carol Moralesjosue, 10/03/2018 2mg mouth at M.D. Tablets bedtime, as needed for muscle spasm Ondansetron HCL one to two by 40tabs R51 Carol Chantal, 06/06/2018 4mg mouth every 8 M.D. Tablets hours as needed for nausea Acetaminophen 2 tablets by Unknown 500mg mouth every 6 Tablets hours as needed for pain/fever-Rarel y uses Ibuprofen 2 by mouth as Unknown 200mg Tablets needed History Medications Verapamil HCL ER take one by 30caps R51 Carol Chantal, 11/14/2018 - 100mg Caps mouth at M.D. 01/01/2019 ER 24HR bedtime Cyclobenzaprine HCL take 1 by mouth 42tabs M54.2 Carol Chantal, 2017 - 5mg every 8 hours, M.D. 10/03/2018 Tablets as needed muscle spasm. No Active Medications Unknown 10/08/2014 - 10/08/2014 Sertraline HCL take 1 tablet R51 Unknown - 50mg Tablets by mouth once 01/02/2019 daily Doxycycline Monohydrate take 1 capsule Unknown - by mouth twice 11/06/2018 100mg Capsules a day before meals Aspir-Low 1 by mouth Unknown - 81mg Tablets DR every day 05/09/2017 Ursodiol 1 po tid Diego Cox MD - 300mg Capsules 05/09/2017 1 po qday Dona Chase - 27-0.8mg Tablets [place] GongoraN.Rosangela 05/09/2017 Depo-Provera every 3 months, Unknown - Suspension not sure of 01/13/2015 dose. Vitamin D-400 1 by mouth 60tabs Unknown - 400Unit every day 10/07/2014 Tablets 1 by mouth 90tabs Unknown - 27-1mg Tablets every day 10/07/2014 Calcium 600 1 by mouth bid Unknown - 600mg Tablets 10/07/2014 Vital Signs Date Vital Result Comment 04/10/2019 8:28am Height 64 inches 5'4" Weight 185.00 lb Heart Rate 66 /min BP Systolic Sitting 118 mmHg BP Diastolic Sitting 66 mmHg Respiratory Rate 16 /min Pain Level 0 O2 % BldC Oximetry 98 % BMI (Body Mass Index) 31.8 kg/m2 01/02/2019 10:01am Height 64 inches 5'4" Weight 196.00 lb Heart Rate 84 /min BP Systolic Sitting 130 mmHg BP Diastolic Sitting 84 mmHg Respiratory Rate 20 /min Pain Level 0 BMI (Body Mass Index) 33.6 kg/m2 11/14/2018 12:05pm Height 64 inches 5'4" Weight 193.00 lb Heart Rate 72 /min BP Systolic Sitting 112 mmHg BP Diastolic Sitting 78 mmHg Respiratory Rate 12 /min Pain Level 0 BMI (Body Mass Index) 33.1 kg/m2 10/03/2018 12:49pm Height 64 inches 5'4" Weight 187.25 lb Heart Rate 87 /min BP Systolic Sitting 138 mmHg R BP Diastolic Sitting 80 mmHg R Respiratory Rate 12 /min O2 % BldC Oximetry 98 % BMI (Body Mass Index) 32.1 kg/m2 06/06/2018 9:10am Height 64 inches 5'4" Weight 174.00 lb Heart Rate 64 /min BP Systolic 122 mmHg BP Diastolic 82 mmHg Respiratory Rate 16 /min Pain Level 0 O2 % BldC Oximetry 98 % BMI (Body Mass Index) 29.9 kg/m2 11/29/2017 3:54pm Height 64 inches 5'4" Weight 163.00 lb Heart Rate 95 /min BP Systolic Sitting 116 mmHg BP Diastolic Sitting 68 mmHg Respiratory Rate 16 /min Pain Level 3 O2 % BldC Oximetry 98 % Ra BMI (Body Mass Index) 28.0 kg/m2 05/10/2017 10:23am Height 64 inches 5'4" Weight 145.00 lb Heart Rate 64 /min BP Systolic Sitting 110 mmHg BP Diastolic Sitting 86 mmHg Respiratory Rate 20 /min Pain Level 0 O2 % BldC Oximetry 98 % BMI (Body Mass Index) 24.9 kg/m2 02/01/2017 11:01am Height 64 inches 5'4" Weight 168.38 lb Heart Rate 76 /min BP Systolic Sitting 124 mmHg BP Diastolic Sitting 68 mmHg Respiratory Rate 15 /min Pain Level 0 BMI (Body Mass Index) 28.9 kg/m2 04/08/2015 11:10am Height 64 inches 5'4" Weight 175.00 lb Heart Rate 64 /min BP Systolic Sitting 106 mmHg BP Diastolic Sitting 78 mmHg BMI (Body Mass Index) 30.0 kg/m2 01/14/2015 10:18am Height 64 inches 5'4" Weight 175.00 lb Heart Rate 74 /min BP Systolic Sitting 118 mmHg BP Diastolic Sitting 70 mmHg BMI (Body Mass Index) 30.0 kg/m2 10/08/2014 11:05am Height 64 inches 5'4" Weight 141.00 lb Heart Rate 73 /min BP Systolic Sitting 100 mmHg BP Diastolic Sitting 68 mmHg BMI (Body Mass Index) 24.2 kg/m2 Blood Pressure Percentile 0 % Height Percentile 46 % Weight Percentile 73rd Encounters Type Date Location Provider Dx Diagnosis Office Visit 01/02/2019 Dulce Cornejo G43.709 Chronic migraine 10:00a Neurologic Serv Of M.DJanet w/o aura, not Sanitary Aide intractable, w/o stat migr R20.2 Paresthesia of skin R42 Dizziness and giddiness Office Visit 11/14/2018 12:00p Silva Rodriguez1 Headache Neurologic Serv Of Sanitary Aide M.DJanet M54.2 Cervicalgia Office Visit 10/03/2018 Dulce Cornejo R94.09 Abnormal 1:00p Neurologic Serv Of M.D. results of Sanitary Aide function studies of SOFTWARE PACKAGING ENGINEER R51 Headache M54.2 Cervicalgia A69.20 Lyme disease, unspecified Office Visit 06/06/2018 Dulce Cornejo, R94.09 Abnormal 9:15a Neurologic Serv Of M.D. results of Sanitary Aide function studies of SOFTWARE PACKAGING ENGINEER R51 Headache M54.2 Cervicalgia Office Visit 11/29/2017 3:45p Ducle Cornejo M54.2 Cervicalgia Neurologic Serv Of Sanitary Aide M.DJanet R51 Headache R94.09 Abnormal results of function studies of SOFTWARE PACKAGING ENGINEER Office Visit 05/10/2017 10:15a Dulce Cornejo R51 Headache Neurologic Serv Of Sanitary Aide M.DJanet R94.09 Abnormal results of function studies of SOFTWARE PACKAGING ENGINEER E72.12 Methylenetetrahydrofolate reductase deficiency Office Visit 02/01/2017 10:45a [place]ard Cornejo, R51 Headache Neurologic Serv Of [facility] Kurtis R94.09 Abnormal results of function studies of SOFTWARE PACKAGING ENGINEER E72.12 Methylenetetrahydrofolate reductase deficiency Office Visit 04/08/2015 [place]inaEduard Cornejo, 794.09 Function Study 11:15a Neurologic Serv Of [place] Other Abnormal [facility] Brain & Central Nervous System 784.0 Headache [facility].09 Function Study 10:00a Neurologic [facility] Of [place] Other Abnormal [facility] Brain & Central Nervous System 784.0 Headache Office Visit 10/08/2014 [place] Cor[place], 794.09 Function Study 11:00a Neurologic Serv Of [place] Other Abnormal [facility] Brain & Central Nervous System 784.0 Headache 369.20 Vision Low Both Eyes Impairment Level Not Further Spec Plan of Treatment Future Appointment(s):08/14/2019 8:30 am - Carol Cornejo M.D. at [facility]04/10/2019 - Carol Cornejo M.D.R20.2 Paresthesia of skinR94.09 Abnormal results of other function studies of central gcfehaI76.709 Chronic migraine without aura, not intractable, without statFollow up:4-5 monthsRecommendations:We discussed increase of sertraline for headache and mood, however given you are trying to get , will not increase the dose. Talk to your Automatic Splicing Machine Operator regarding best dose. Do not take tizanidine Do not take ondansetron until after first trimester You can use tylenol for headaches.
== END 2019-05-02 09:19 | disposition home or self-care (01) ==
LOC: UCCORT 08:26
DX: B37.3 Candidiasis of vulva and vagina (principal); Z91.040 Latex allergy status; Z91.048 Other nonmedicinal substance allergy status
CPT/HCPCS: 81003; 84702; 87086; 99212; G0463

== ENCOUNTER 2019-10-27 09:06 | Emergency (ER) | payer OTHER ==
[2019-10-27 09:45] VITALS: BP 122/76
--- NOTE | 2019-10-27 10:05 | UC ---
Laceration HPI - HPI Summary HPI Summary: Pt presents with c/o laceration tobas of right index finger that occurred last evening ~ 1800. Pt was washing dishcing and cut finger on broken glass. - History Of Current Complaint Chief Complaint: UCLaceration Stated Complaint: RIGHT INDEX FINGER LACERATION Time Seen by Provider: 10/27/19 09:41 Hx Obtained From: Patient Hx Last Menstrual Period: 10/24/18 Laceration Location: Finger - right index finger Mechanism Of Injury: Sharp Trauma Onset/Duration: Sudden Onset Severity: Moderate Pain Intensity: 6 Aggravating Factors: Nothing Related History: Dominant Hand Right - Allergies/Home Medications Allergies/Adverse Reactions: Allergies Allergy/AdvReac Type Severity Reaction Status Date / Time latex Allergy Rash And Verified 10/27/19 09:35 Itching nickel Allergy Severe Rash Uncoded 10/27/19 09:35 CHLORINE Allergy Rash Uncoded 10/27/19 09:35 Home Medications: Home Medications Cholecalciferol TAB* [Vitamin D TAB*] 400 units PO DAILY 10/27/19 [History Confirmed 10/27/19] Tamsulosin CAP* [Flomax CAP*] 0.4 mg PO DAILY 10/27/19 [History Confirmed ] PMH/Surg Hx/FS Hx/Imm Hx Previously Healthy: Yes - Surgical History Surgical History: None Surgery Procedure, Year, and Place: None - Family History Known Family History: Positive: None Negative: Diabetes, Other - NEG: gallbladder disease - Social History Occupation: Employed Full-time, Works From/At Home Lives: With Family Alcohol Use: None Substance Use Type: None Smoking Status (MU): Never Smoked Tobacco Have You Smoked in the Last Year: No - Immunization History Most Recent Influenza Vaccination: 06/2015 Most Recent Tetanus Shot: 2017 Vaccination Up to Date: Yes Review of Systems All Other Systems Reviewed And Are Negative: Yes Constitutional: Positive: Negative Skin: Positive: Other - laceration rigth index finger Eyes: Positive: Negative ENT: Positive: Negative Respiratory: Positive: Negative Cardiovascular: Positive: Negative Gastrointestinal: Positive: Negative Genitourinary: Positive: Negative Motor: Positive: Negative - tenderness at laceration site. Neurovascular: Positive: Negative Musculoskeletal: Positive: Myalgia Neurological: Positive: Negative Psychological: Positive: Negative Is Patient Immunocompromised?: No Physical Exam Triage Information Reviewed: Yes Appearance: Well-Appearing Vital Signs: Initial Vital Signs Temp 98.2 F 10/27/19 09:37 Pulse 71 10/27/19 09:37 Resp 16 10/27/19 09:37 BP 122/76 10/27/19 09:37 Pulse Ox 99 10/27/19 09:37 Vital Signs Reviewed: Yes Eye Exam: Normal ENT Exam: Normal Dental Exam: Normal Neck exam: Normal Respiratory: Positive: No respiratory distress Musculoskeletal Exam: Normal Musculoskeletal: Positive: Strength Intact, ROM Intact Neurological Exam: Normal Psychological Exam: Normal Skin Exam: Other - laceration to base of right index finger Laceration Repair - Laceration Repair 1 Procedure Summary: laceration occurred last evening. wound is closed and not actively bleeding at time of PE. Pt believes that her tetanus is UTD. wound was in retangular shape with three sides being lacerated. Description: Irregular Laceration Size After Repair: Length (cm) - 2cm, Width (mm) - 3, Depth (mm) - 2 Modified For Repair: No Cleansing Completed Via Routine Prep: Yes Irrigation With Pressure Irrigation Device: Yes Closure Material: Skin Adhesive, SteriStrips Closure Method: Single Layer Laceration Course/Dx - Differential Dx - Laceration/Wound Differental Diagnoses: Laceration, Tendon Laceration - Diagnosis Provider Diagnosis: Laceration Discharge ED - Sign-Out/Discharge Documenting (check all that apply): Patient Departure All imaging exams completed and their final reports reviewed: No Studies - Discharge Plan Condition: Stable Disposition: HOME Prescriptions: Cephalexin CAP* [Keflex 500 CAP*] 500 mg PO Q12H #10 cap Patient Education Materials: Finger Laceration (ED), Skin Adhesive Care (ED), Steristrips (ED) Referrals: Buddy Turcios MD [Primary Care Provider] - If Needed Additional Instructions: Please keep your wound clean and dry for at least 48 hours. Please monitor for signs and symptoms of infection that include but not limited to increased redness, tenderness, swelling, fever, and purulent discharge. - Billing Disposition and Condition Condition: STABLE Disposition: Home
== END 2019-10-27 10:26 | disposition home or self-care (01) ==
LOC: UCCORT 09:06
DX: S61.210A Laceration without foreign body of right index finger without damage to nail, initial encounter (principal); W25.XXXA Contact with sharp glass, initial encounter; Y93.G1 Activity, food preparation and clean up; Y92.9 Unspecified place or not applicable; Z91.040 Latex allergy status; Z91.09 Other allergy status, other than to drugs and biological substances
CPT/HCPCS: 12001; 99212; G0463

== ENCOUNTER 2019-11-22 07:52 | Emergency (ER) | payer OTHER ==
[2019-11-22 08:06] VITALS: BP 126/76
[2019-11-22 08:17] LABS: Influenza A Molecular POSITIVE (Negative)
--- NOTE | 2019-11-22 08:25 | UC ---
General HPI - HPI Summary HPI Summary: Here with young son saying she is on day 3 of flu like symptoms. cough, chills and congestion. Pain all over chest with coughing. She is exhausted but can't sleep due to coughing. Did try robitussin with minimal relief. Finance just diagnosed with the flu. All have had the flu shot. No N/V/D. Nonsmoker. No hx of inhaler use in the past. Meds; Reviewed - History of Current Complaint Chief Complaint: UCRespiratory Stated Complaint: COUGH,CONGESTION,CHILLS Time Seen by Provider: 11/22/19 07:54 Hx Last Menstrual Period: 10/24/19 Pain Intensity: 5 - Allergy/Home Medications Allergies/Adverse Reactions: Allergies Allergy/AdvReac Type Severity Reaction Status Date / Time latex Allergy Rash And Verified 11/22/19 08:02 Itching nickel Allergy Severe Rash Uncoded 11/22/19 08:02 CHLORINE Allergy Rash Uncoded 11/22/19 08:02 Home Medications: Home Medications Multivitamins/Minerals TAB* [Theragran/minerals TAB*] 1 tab PO DAILY 05/02/19 [ History Confirmed 11/22/19] Sertraline* [Zoloft*] 100 mg PO DAILY 05/02/19 [History Confirmed 11/22/19] Cholecalciferol TAB* [Vitamin D TAB*] 400 units PO DAILY 10/27/19 [History Confirmed 11/22/19] GuaiFENesin DM sugar free [Robitussin DM 100mg/10mg sugar free*] 10 ml PO Q6H PRN 11/22/19 [History Confirmed 11/22/19] PMH/Surg Hx/FS Hx/Imm Hx Previously Healthy: Yes - Surgical History Surgical History: None Surgery Procedure, Year, and Place: None - Family History Known Family History: Positive: None Negative: Diabetes, Other - NEG: gallbladder disease - Social History Alcohol Use: Occasionally Substance Use Type: None Smoking Status (MU): Never Smoked Tobacco Have You Smoked in the Last Year: No - Immunization History Most Recent Influenza Vaccination: 06/2015 Most Recent Tetanus Shot: 2017 Vaccination Up to Date: Yes Review of Systems All Other Systems Reviewed And Are Negative: Yes Constitutional: Positive: Chills ENT: Positive: Sore Throat, Nasal Discharge, Sinus Congestion Respiratory: Positive: Cough Physical Exam Triage Information Reviewed: Yes Appearance: Well-Appearing Vital Signs: Initial Vital Signs Temp 98.8 F 11/22/19 08:01 Pulse 105 11/22/19 08:01 Resp 18 11/22/19 08:01 BP 126/76 11/22/19 08:01 Pulse Ox 100 11/22/19 08:01 ENT: Positive: Pharyngeal erythema, Nasal congestion, Other - TM's clear fluid Neck: Positive: Supple, Nontender Respiratory: Positive: Lungs clear, Normal breath sounds Cardiovascular: Positive: RRR, No Murmur Course/Dx - Course Course Of Treatment: This is a 24 yr old with flu like symptoms Flu A; positive Nontoxic appearing No respiratory distress Discussed no role in tamiflu after 3 days of symptoms Plan Continue supportive care Continue rest, fluids, and ibuprofen as needed for pain/fever -take as directed Continue over the counter cough suppressant If symptoms persist or worsen, recommend follow up with PCP or return to urgent care - Diagnoses Provider Diagnosis: Influenza A Discharge ED - Sign-Out/Discharge Documenting (check all that apply): Patient Departure All imaging exams completed and their final reports reviewed: No Studies - Discharge Plan Condition: Good Disposition: HOME Patient Education Materials: Influenza (ED) Referrals: Buddy Turcios MD [Primary Care Provider] - Additional Instructions: Continue supportive care Continue rest, fluids, and ibuprofen as needed for pain/fever -take as directed Continue over the counter cough suppressant If symptoms persist or worsen, recommend follow up with PCP or return to urgent care - Billing Disposition and Condition Condition: GOOD Disposition: Home
== END 2019-11-22 08:34 | disposition home or self-care (01) ==
LOC: UCCORT 07:52
DX: J10.1 Influenza due to other identified influenza virus with other respiratory manifestations (principal); Z91.040 Latex allergy status; Z91.09 Other allergy status, other than to drugs and biological substances
CPT/HCPCS: 84702; 99211; G0463